=== PATIENT | male | born 1955 | race African-American/Black ===

== ENCOUNTER 2016-09-15 16:13 | Emergency (ER) | payer OTHER ==
--- NOTE | 2016-09-15 16:40 | ER Document Report ---
ED Respiratory Problem - General Chief Complaint: COPD Exacerbation Stated Complaint: DIFFICULTY BREATHING Time seen by provider: 16:40 Mode of Arrival: Medic Information source: Patient Notes: 60 yo smoker male with COPD has worsening SOB with ambulation, wheezing, can't get enough air for 3 days. Feels like constant squeezing,tight chest for over a week, coughing up phelgm that is white. [facility] a year go for COPD when gasping for air. No abd. pain, n/v/d. No fever. Heavy ETOH use 4 days ago. Ran out of symbicort 160 /4.5 1 weeks ago which he feels helps him the most and has been using 5 times a day he states his Ventolin metered-dose inhaler does not help. He does have a nebulizer at home. EMS has already given 2 albuterols and a DuoNeb with Solu-Medrol 125 mg IV prior to ER . pt has never had TB of CHF which I removed from the record. - Related Data Allergies/Adverse Reactions: iodine [Iodine] Allergy (Verified 03/25/14 17:30) Shellfish * [Shellfish] Allergy (Verified 03/25/14 17:30) Past Medical History - General Information source: Patient - Social History Smoking Status: Current Every Day Smoker Frequency of alcohol use: Heavy Drug Abuse: None Lives with: Family Family History: Reviewed & Not Pertinent Pulmonary Medical History: Reports: Hx COPD Psychiatric Medical History: Reports: Hx Depression Surgical Hx: Negative - Immunizations Hx Diphtheria, Pertussis, Tetanus Vaccination: Yes Hx Pneumococcal Vaccination: 03/12/12 Review of Systems - Review of Systems Constitutional: No symptoms reported EENT: No symptoms reported Cardiovascular: No symptoms reported Respiratory: See HPI Gastrointestinal: No symptoms reported Genitourinary: No symptoms reported Male Genitourinary: No symptoms reported Musculoskeletal: No symptoms reported Skin: No symptoms reported Hematologic/Lymphatic: No symptoms reported Neurological/Psychological: No symptoms reported Physical Exam - Vital signs Vitals: Pulse Ox 100 09/15/16 16:59 Interpretation: Tachypneic, Other - O2 99% on 2lpm nc which i removed - General General appearance: Appears well, Alert, Anxious In distress: None - HEENT Head: Normocephalic, Atraumatic Eyes: Normal Conjunctiva: Normal Pupils: PERRL Tympanic membrane: Normal Mouth/Lips: Normal Mucous membranes: Normal Pharynx: Normal Neck: Supple. No: Lymphadenopathy - Respiratory Respiratory status: No respiratory distress Chest status: Nontender Breath sounds: Decreased air movement, Wheezing - insp and exp using nexk muscle for work of respiration Chest palpation: Normal - Cardiovascular Rhythm: Regular Heart sounds: Normal auscultation Murmur: No - Abdominal Inspection: Normal Distension: No distension Bowel sounds: Normal Tenderness: Nontender. No: Tender Organomegaly: No organomegaly - Back Back: Normal, Nontender - Extremities General upper extremity: Normal inspection, Nontender, Normal color, Normal ROM , Normal temperature General lower extremity: Normal inspection, Nontender, Normal color, Normal ROM , Normal temperature, Normal weight bearing. No: Vicky's sign - Neurological Neuro grossly intact: Yes Cognition: Normal Orientation: AAOx4 [place] Coma Scale Eye Opening: Spontaneous [place] Coma Scale Verbal: Oriented [place] Coma Scale Motor: Obeys Commands [place] Coma Scale Total: 15 Speech: Normal Motor strength normal: LUE, RUE, LLE, RLE Sensory: Normal - Psychological Associated symptoms: Normal affect, Normal mood - Skin Skin Temperature: Warm Skin Moisture: Dry Skin Color: Normal Skin irregularity: negative: Rash Course - Re-evaluation Re-evalutation: 09/15/16 17:[address] mcarthur per [facility] guidelines. Add cardiac labs/ekg. 09/15/16 17:09 insp, exp wheeze kyree. persists after the 2 alb nebs on ems and duoneb here, solumedrol 125mg given on ems too. 09/15/16 17:52 His workup breathing is decreased and not using accessory muscles as much in his neck. He still has expiratory wheezing. He feels better. The magnesium is just getting started in the terbutaline was just recently given. No EKG has been done yet 09/15/16 18:01 Chest x-ray narrow heart flat diaphragms no infiltrate. EKG normal sinus rhythm with T-wave in version V4 and 5 which was not there 03/26/2014. 09/15/16 18:50 cardiac enzymes negative. ambulate on room air 98% to bathroom, moving air much better, mild exp wheeze bilateral. He states he can breath much much better. - Vital Signs Vital signs: Temp Pulse Resp BP Pulse Ox 19 116/68 99 09/15/16 18:01 09/15/16 18:01 09/15/16 18:01 - Laboratory Result Diagrams: 09/15/16 17:05 09/15/16 17:05 Laboratory results interpreted by me: 09/15/16 09/15/16 09/15/16 17:05 17:05 17:12 Eosinophils % 8.7 H ABG pO2 66.4 L ABG O2 Saturation 92.6 L Glucose 116 H ALT 15 L Discharge - Discharge Clinical Impression: Obstructive chronic bronchitis with exacerbation Condition: Good Disposition: HOME, SELF-CARE Instructions: Chronic Obstructive Lung Disease ([facility]), Corticosteroid Inhaler ( [facility], 1928–1983), Steroid Medication, Inhaled Bronchodilators ([facility], 1928–1983), Azithromycin (FORM[facility]LY [facility], 1928–1983), Stop Smoking (FORM[facility]LY [facility], 1928–1983) Additional Instructions: STOP SMOKING to er if worse use the albuterol 2.5 mg nebulizer four times per day as needed for cough and wheeze when at home take the prednisone daily until gone finish the azithromycin 250mg daily for 4 more days use the symbicort ONLY TWICE A DAY use the atrovent MDI four times per day only use the plain albuterol MDI every 3 hours as needed while not at home see the [place] doctor on sunday for recheck Prescriptions: Albuterol Sulfate [Ventolin 0.083% Neb 2.5 mg/3 mL Ampul] 2.5 mg NEB Q3HP PRN # 25 vial PRN Reason: Albuterol Sulfate [Proair HFA Inhalation Aerosol 8.5 gm MDI] 2 puff IH Q3HP PRN #1 hfa.aer.ad PRN Reason: Azithromycin [Zithromax] 250 mg PO DAILY #4 tablet Budesonide/Formoterol Fumarate [Symbicort Hfa 160-4.5 Mcg Inhaler 6 gm] 2 puff IH Q12 #1 inhaler Ipratropium [place] [Atrovent Hfa] 2 puff IH QID #1 hfa.aer.ad Prednisone [Deltasone 10 mg Tablet] 10 mg PO ASDIR PRN #21 tablet PRN Reason:
[2016-09-15] MEDS ORDERED: IPRATROPIUM/ALBUTEROL 0.5-2.5 MG/3 ML AMPUL NEB ONE (16:46)
[2016-09-15] MEDS ORDERED: ASPIRIN 81 MG TABLET, CHEWABLE PO ONE (17:06)
[2016-09-15] MEDS ORDERED: MAGNESIUM SULFATE/D5W 100 ML IV ONE (17:10)
[2016-09-15] MEDS ORDERED: TERBUTALINE SULFATE INJ/PF 1 MG/1 ML SDV SUBCUT ONE (17:14)
[2016-09-15 17:51] LABS: ARTERIAL BLOOD BASE EXCESS -1.6 mmol/L; ARTERIAL BLOOD O2 SATURATION 92.6 % (94-98)
[2016-09-15 17:52] LABS: ABSOLUTE EOSINOPHILS # (AUTO) 0.4 10^3/uL (0.0-0.6); ABSOLUTE LYMPHOCYTES (AUTO) 1.4 10^3/uL (0.5-4.7); ABSOLUTE MONOCYTES (AUTO) 0.4 10^3/uL (0.1-1.4); ABSOLUTE NEUT (AUTO) 2.8 10^3/uL (1.7-8.2); BASOPHILS % (AUTO) 0.6 % (0-2); EOSINOPHILS % (AUTO) 8.7 % (0-6); HEMATOCRIT 42.7 % (37.9-51.0); HGB HCT DIFFERENCE -0.7; LYMPHOCYTES % (AUTO) 28.1 % (13-45); MEAN CORPUSCULAR HEMOGLOBIN 31.1 pg (27.0-33.4); MEAN CORPUSCULAR HGB CONC 32.8 g/dL (32.0-36.0); MEAN CORPUSCULAR VOLUME 95 fl (80-97); MONOCYTES % (AUTO) 7.5 % (3-13); RED BLOOD COUNT 4.51 10^6/uL (4.35-5.55); RED CELL DISTRIBUTION WIDTH 13.7 % (11.5-14.0); SEGMENTED NEUTROPHILS % (AUTO) 55.1 % (42-78)
[2016-09-15 18:04] LABS: ALANINE AMINOTRANSFERASE 15 U/L (21-72); ALBUMIN 3.7 g/dL (3.5-5.0); ALKALINE PHOSPHATASE 55 U/L (38-126); ANION GAP 9 (5-19); ASPARTATE AMINO TRANSFERASE 18 U/L (17-59); BILIRUBIN,TOTAL 0.5 mg/dL (0.2-1.3); BLOOD UREA NITROGEN 16 mg/dL (7-20); CALCIUM 9.1 mg/dL (8.4-10.2); CARBON DIOXIDE 28 mmol/L (22-30); CHLORIDE 100 mmol/L (98-107); CREATINE KINASE 150 U/L (55-170); CREATININE RESULT 1.15 mg/dL (0.52-1.25); GLUCOSE 116 mg/dL (75-110); POTASSIUM 4.4 mmol/L (3.6-5.0); SODIUM 137.3 mmol/L (137-145); TOTAL PROTEIN 6.8 g/dL (6.3-8.2)
[2016-09-15 18:19] LABS: TROPONIN I < 0.012 ng/mL
[2016-09-15] MEDS ORDERED: AZITHROMYCIN 250 MG TABLET PO ONE (19:03)
[2016-09-15] MEDS ORDERED: PREDNISONE 20 MG TABLET PO ONE (19:17)
[2016-09-15 19:54] VITALS: BP 119/77
--- NOTE | 2016-09-15 20:58 | EKG REPORT ---
SEVERITY:- BORDERLINE ECG - SINUS RHYTHM PROBABLE LEFT ATRIAL ABNORMALITY LOW VOLTAGE IN FRONTAL LEADS BORDERLINE T ABNORMALITIES, LATERAL LEADS : Confirmed by: Sabas Flores MD 15-Sep-2016 20:56:54
== END 2016-09-15 19:35 | disposition home or self-care (01) ==
LOC: ER 16:13
DX: J44.1 Chronic obstructive pulmonary disease with (acute) exacerbation (principal); R06.02 Shortness of breath; R06.2 Wheezing; R05 Cough; F17.210 Nicotine dependence, cigarettes, uncomplicated
CPT/HCPCS: 93005; 94640; 99285; 96372; 96365; 36415; 82553; 82803; 82550; 85025; 80053; 84484; 71010; 93010; J3475; J7512; J3105; J7620

== ENCOUNTER 2016-09-18 03:25 | Inpatient (IN) | payer OTHER ==
[2016-09-18] MEDS ORDERED: METHYLPREDNISOLONE INJ 125 MG/2 ML SDV IV ONE (03:39)
[2016-09-18] MEDS ORDERED: IPRATROPIUM/ALBUTEROL 0.5-2.5 MG/3 ML AMPUL NEB ONE (03:39)
[2016-09-18 03:57] LABS: ABSOLUTE EOSINOPHILS # (AUTO) 0.7 10^3/uL (0.0-0.6); ABSOLUTE LYMPHOCYTES (AUTO) 2.5 10^3/uL (0.5-4.7); ABSOLUTE MONOCYTES (AUTO) 0.6 10^3/uL (0.1-1.4); ABSOLUTE NEUT (AUTO) 2.1 10^3/uL (1.7-8.2); BASOPHILS % (AUTO) 0.7 % (0-2); EOSINOPHILS % (AUTO) 11.9 % (0-6); HEMATOCRIT 41.9 % (37.9-51.0); HEMOGLOBIN 13.9 g/dL (13.5-17.0); HGB HCT DIFFERENCE -0.2; LYMPHOCYTES % (AUTO) 41.6 % (13-45); MEAN CORPUSCULAR HEMOGLOBIN 31.6 pg (27.0-33.4); MEAN CORPUSCULAR HGB CONC 33.2 g/dL (32.0-36.0); MEAN CORPUSCULAR VOLUME 95 fl (80-97); MONOCYTES % (AUTO) 10.7 % (3-13); RED BLOOD COUNT 4.41 10^6/uL (4.35-5.55); RED CELL DISTRIBUTION WIDTH 13.4 % (11.5-14.0); SEGMENTED NEUTROPHILS % (AUTO) 35.1 % (42-78)
[2016-09-18] MEDS: MAGNESIUM SULFATE/D5W 100 ML IV SCH ×2 (04:01→05:00)
[2016-09-18 04:02] LABS: ALANINE AMINOTRANSFERASE 25 U/L (21-72); ALKALINE PHOSPHATASE 53 U/L (38-126); ANION GAP 15 (5-19); ASPARTATE AMINO TRANSFERASE 16 U/L (17-59); BILIRUBIN,TOTAL 0.4 mg/dL (0.2-1.3); BLOOD UREA NITROGEN 16 mg/dL (7-20); CALCIUM 8.3 mg/dL (8.4-10.2); CARBON DIOXIDE 28 mmol/L (22-30); CHLORIDE 103 mmol/L (98-107); GLUCOSE 83 mg/dL (75-110); POTASSIUM 3.7 mmol/L (3.6-5.0); SODIUM 146.3 mmol/L (137-145); TOTAL PROTEIN 6.2 g/dL (6.3-8.2)
--- NOTE | 2016-09-18 04:20 | ER Document Report ---
ED General - General Chief Complaint: Breathing Difficulty Stated Complaint: DIFFICULTY BREATHING Notes: Patient is a [id number] male presents with complaint of difficulty breathing. If seen here 3 days ago for some of symptoms was discharged home with multiple inhalers but says he was unable to fill prescriptions because the [place] pharmacy was not open over the weekend. He continues to smoke. Breathing has become much worse. No vomiting. No diarrhea. Fevers. No chest pain. No other complaints at this time. TRAVEL OUTSIDE OF THE [place] IN LAST 30 DAYS: No - Related Data Allergies/Adverse Reactions: iodine [Iodine] Allergy (Verified 09/18/16 04:50) Shellfish * [Shellfish] Allergy (Verified 09/18/16 04:50) Past Medical History - Social History Smoking Status: Current Every Day Smoker Frequency of alcohol use: None Drug Abuse: None Family History: Reviewed & Not Pertinent - Past Medical History Cardiac Medical History: Reports: Hx Congestive Heart Failure Pulmonary Medical History: Reports: Hx COPD, Hx Tuberculosis - Treatment in 1991 Denies: Hx Respiratory Failure, Hx Sleep Apnea Renal/ Medical History: Denies: Hx Peritoneal Dialysis Malignancy Medical History: Denies Hx Lung Cancer Psychiatric Medical History: Reports: Hx Depression Past Surgical History: Denies: Hx Appendectomy, Hx Bowel Surgery, Hx Cholecystectomy, Hx Coronary Artery Bypass Graft, Hx Gastric Bypass Surgery, Hx Herniorrhaphy, Hx Pacemaker, Hx Tonsillectomy - Immunizations Hx Diphtheria, Pertussis, Tetanus Vaccination: Yes Hx Pneumococcal Vaccination: 03/12/12 Review of Systems - Review of Systems Notes: My Normal Review Basic REVIEW OF SYSTEMS: CONSTITUTIONAL : Denies fever, chills, or sweats. Denies recent illness. EENT: Some congestion. RESPIRATORY: Difficulty breathing. Recurrent cough. Wheezing. GASTROINTESTINAL: Denies abdominal pain. Denies nausea, vomiting, or diarrhea. Denies constipation. Last BM: MUSCULOSKELETAL: Denies neck or back pain or joint pain or swelling. SKIN: Denies rash or skin lesions. NEUROLOGICAL: Denies altered mental status or loss of consciousness. Denies headache. Denies weakness or paralysis or loss of use of either side. Denies problems with gait or speech. Denies sensory or motor loss. ALL OTHER SYSTEMS REVIEWED AND NEGATIVE. Physical Exam - Vital signs Vitals: BP 133/112 H 09/18/16 03:28 - Notes Notes: General Appearance: Well nourished, alert, cooperative, moderate acute distress , no obvious discomfort. Vitals: reviewed, See vital signs table. Head: no swelling or tenderness to the head Eyes: PERRL, EOMI, Conjuctiva clear Mouth: No decreasd moisture Throat: No tonsillar inflammation, No airway obstruction, No lymphadenopathy Neck: Supple, no neck tenderness, No thyromegaly Lungs: Diffuse wheezing. Diffuse rhonchi. Fair air exchange. Heart: Tachycardic rate, Regular rythm, No murmur, no rub Abdomen: Normal BS, soft, No rigidity, No abdominal tenderness, No guarding, no rebound, no abdominal masses, no organomegaly Extremities: strength 5/5 in all extremities, good pulses in all extremities, no swelling or tenderness in the extremities, no edema. Skin: warm, dry, appropriate color, no rash Neuro: speech clear, oriented x 3, normal affect, responds appropriately to questions. Course - Vital Signs Vital signs: Temp Pulse Resp BP Pulse Ox 98.0 F 19 126/95 H 98 09/18/16 03:30 09/18/16 04:01 09/18/16 04:01 09/18/16 04:01 - Laboratory Result Diagrams: 09/18/16 03:30 09/18/16 03:30 Laboratory results interpreted by me: 09/18/16 09/18/16 03:30 03:30 Seg Neutrophils % 35.1 L Eosinophils % 11.9 H Absolute Eosinophils 0.7 H Sodium 146.3 H Calcium 8.3 L AST 16 L Total Protein 6.2 L - EKG Interpretation by Me Additional EKG results interpreted by me: 09/18/16 04:32 EKG is reviewed and interpreted by me. EKG shows sinus tachycardia with [address] segment elevation or depression. No ischemic T wave inversions. IA interval, QRS duration, QTC was are within normal range. No old EKG available for comparison. - Transfer of Care Notes: 09/18/16 04:59 Patient's tachypnea has improved. His increased work of breathing is improved; however, he still is very tight lung mohan with large amount of rhonchi and wheezing. He still requiring 3 L of oxygen. At this time and felt appropriate to admit the patient. Patient's had multiple breathing treatments as well as magnesium and Solu-Medrol. Chest x-ray shows no evidence of pneumonia. I did speak with the hospitalist who agrees to admit the patient. Dictation of this chart was performed using voice recognition software; therefore, there may be some unintended grammatical errors. Discharge - Discharge Clinical Impression: Obstructive chronic bronchitis with exacerbation Condition: Stable Disposition: ADMITTED OBSERVATION Admitting Provider: Hospitalist Unit Admitted: Telemetry
[2016-09-18 04:59] LABS: VENOUS BLOOD BASE EXCESS -7.3 mmol/L; VENOUS BLOOD HCO3 18.9 mmol/L (20-32); VENOUS BLOOD PCO2 40.9 mmHg (35-63); VENOUS BLOOD PH 7.28 (7.30-7.42)
[2016-09-18] MEDS ORDERED: ACETAMINOPHEN 325 MG TABLET PO PRN (04:59)
[2016-09-18] MEDS ORDERED: IPRATROPIUM/ALBUTEROL 0.5-2.5 MG/3 ML AMPUL NEB PRN (04:59)
[2016-09-18] MEDS ORDERED: HEPARIN SOD (PORCINE) 5,000 UNIT/ML 1 ML SYRINGE SUBCUT SCH (06:00)
--- NOTE | 2016-09-18 06:30 | PDOC H&P ---
History of Present Illness Admission Date/PCP: 09/18/16 04:59 Patient complains of: Shortness of breath a nonproductive cough History of Present Illness: JOSE FERNANDO is a 60 year old male with a history of COPD and tobacco dependence he's had approximately 5 days of a nonproductive cough and worsening shortness of breath prompting him to seek evaluation emergency room where his found to have severe tachypnea and large AA gradient setting only 93% on 4 L nasal cannula. He denies chest pain fever nausea vomiting diaphoresis or palpitations. Denies infectious contacts, he is unclear as to whether he is received Pneumovax or influenza vaccine. Patient otherwise states compliance with his home medication regiment but continues to smoke 1 pack per day. Past Medical History Cardiac Medical History: Reports: Congestive Heart Failure Pulmonary Medical History: Reports: Chronic Obstructive Pulmonary Disease (COPD) , Tuberculosis - Treatment in 1991 Denies: Respiratory Failure, Sleep Apnea Malignancy Medical History: Denies: Breast Cancer, Cervical Cancer, Lung Cancer, Ovarian Cancer Psychiatric Medical History: Reports: Depression, Tobacco Dependency Past Surgical History Past Surgical History: Denies: Appendectomy, Cholecystectomy, Coronary Artery Bypass Graft, Gastric Bypass Surgery, Herniorrhaphy, Pacemaker, Tonsillectomy Social History Information Source: Patient Lives with: Family Smoking Status: Current Every Day Smoker Cigarettes Packs Per Day: 1 Frequency of Alcohol Use: None Hx Recreational Drug Use: Yes Drugs: Cocaine Hx Prescription Drug Abuse: No Family History Family History: CAD, COPD Parental Family History Reviewed: Yes Children Family History Reviewed: Yes Sibling(s) Family History Reviewed.: Yes Medication/Allergy Home Medications: Trazodone HCl [Desyrel 50 mg Tablet] 50 mg PO QHS 03/25/14 Albuterol Sulfate [Proair HFA Inhalation Aerosol 8.5 gm MDI] 1 puff IH ASDIR PRN #1 hfa.aer.ad 03/27/14 Amlodipine Besylate [Norvasc 5 mg Tablet] 5 mg PO DAILY #30 tablet 03/27/14 Amox Tr/Potassium Clavulanate [Augmentin 875-125 mg Tablet] 1 tab PO BID #20 tablet 03/27/14 Budesonide/Formoterol Fumarate [Symbicort HFA 160-4.5 mcg Inhaler 6 gm] 2 puff IH BID #1 inhaler 03/27/14 Docusate Sodium [Colace 100 mg Capsule] 100 mg PO BID #60 capsule 03/27/14 Famotidine [Pepcid 20 mg Tablet] 20 mg PO Q12 #60 tablet 03/27/14 Fluconazole [Diflucan 100 Mg Tablet] 200 mg PO DAILY #42 tablet 03/27/14 Prednisone 60 mg PO DAILY #21 tablet 03/27/14 Albuterol Sulfate [Proair HFA Inhalation Aerosol 8.5 gm MDI] 2 puff IH Q3HP PRN #1 hfa.aer.ad 09/15/16 Albuterol Sulfate [Ventolin 0.083% Neb 2.5 mg/3 mL Ampul] 2.5 mg NEB Q3HP PRN # 25 vial 09/15/16 Azithromycin [Zithromax] 250 mg PO DAILY #4 tablet 09/15/16 Budesonide/Formoterol Fumarate [Symbicort Hfa 160-4.5 Mcg Inhaler 6 gm] 2 puff IH Q12 #1 inhaler 09/15/16 Ipratropium [place] [Atrovent Hfa] 2 puff IH QID #1 hfa.aer.ad 09/15/16 Prednisone [Deltasone 10 mg Tablet] 10 mg PO ASDIR PRN #21 tablet 09/15/16 Allergies/Adverse Reactions: iodine [Iodine] Allergy (Verified 09/18/16 04:50) Shellfish * [Shellfish] Allergy (Verified 09/18/16 04:50) Review of Systems Constitutional: ABSENT: chills, fever(s), headache(s), weight gain, weight loss Eyes: ABSENT: visual disturbances Ears: ABSENT: hearing changes Cardiovascular: ABSENT: chest pain, dyspnea on exertion, edema, orthropnea, palpitations Respiratory: ABSENT: cough, hemoptysis Gastrointestinal: ABSENT: abdominal pain, constipation, diarrhea, hematemesis, hematochezia, nausea, vomiting Genitourinary: ABSENT: dysuria, hematuria Musculoskeletal: ABSENT: joint swelling Integumentary: ABSENT: rash, wounds Neurological: ABSENT: abnormal gait, abnormal speech, confusion, dizziness, focal weakness, syncope Psychiatric: ABSENT: anxiety, depression, homidical ideation, suicidal ideation Endocrine: ABSENT: cold intolerance, heat intolerance, polydipsia, polyuria Hematologic/Lymphatic: ABSENT: easy bleeding, easy bruising Physical Exam Vital Signs: Temp Pulse Resp BP Pulse Ox 98.0 F 14 138/87 H 97 09/18/16 03:30 09/18/16 05:06 09/18/16 05:06 09/18/16 05:06 Intake & Output 09/16/16 09/17/16 09/18/16 11:59 11:59 11:59 Weight 72.575 kg General appearance: PRESENT: cooperative, mild distress, thin Head exam: PRESENT: atraumatic, normocephalic Eye exam: PRESENT: conjunctiva pink, EOMI, PERRLA. ABSENT: scleral icterus Ear exam: PRESENT: normal external ear exam Mouth exam: PRESENT: moist, tongue midline Neck exam: ABSENT: carotid bruit, JVD, lymphadenopathy, thyromegaly Respiratory exam: PRESENT: accessory muscle use, crackles, prolonged expiratory phas, tachypnea, wheezes. ABSENT: rhonchi, stridor Cardiovascular exam: PRESENT: RRR. ABSENT: diastolic murmur, rubs, systolic murmur Pulses: PRESENT: normal dorsalis pedis pul Vascular exam: PRESENT: normal capillary refill GI/Abdominal exam: PRESENT: normal bowel sounds, soft. ABSENT: distended, guarding, mass, organolmegaly, rebound, tenderness Rectal exam: PRESENT: deferred Extremities exam: PRESENT: full ROM. ABSENT: calf tenderness, clubbing, pedal edema Neurological exam: PRESENT: alert, awake, oriented to person, oriented to place , oriented to time, oriented to situation, CN II-XII grossly intact. ABSENT: motor sensory deficit Psychiatric exam: PRESENT: appropriate affect, normal mood. ABSENT: homicidal ideation, suicidal ideation Skin exam: PRESENT: dry, intact, warm. ABSENT: cyanosis, rash Results Impressions: Chest X-Ray 09/18/16 03:39 IMPRESSION: No acute cardiopulmonary findings. Stable. Assessment & Plan - Diagnosis (1) COPD exacerbation Is this a current diagnosis for this admission?: YesPlan: Patient be admitted to the telemetry floor with pneumonia care set receiving albuterol Atrovent, Solu-Medrol, empiric antibiotics, I'm concerned for the patient's lifelong smoking and BMI of only [address] chest (2) Pneumonia Plan: Compcare by advanced COPD and chronic bronchitis clinically he has early pneumonia he will be treated with empiric antibiotics in addition to the above following up blood culture, and CT right sided fullness of the hilum. (3) Tobacco abuse Is this a current diagnosis for this admission?: YesPlan: Tobacco Dependence patient received tobacco cessation counseling and offered nicotine replacement options - Time Time Spent: 50 to 70 Minutes
[2016-09-18] MEDS: IPRATROPIUM/ALBUTEROL 0.5-2.5 MG/3 ML AMPUL NEB SCH ×3 (08:05→20:27)
[2016-09-18] MEDS: LEVOFLOXACIN 750 MG/D5W RTU 750 MG/150 ML RTUPB IV SCH (08:32)
--- NOTE | 2016-09-18 09:18 | Physician Advisory Note ---
Physician Advisor ProgressNote .: [facility], I have reviewed the medical record for this patient. Physician Advisor Statement: Very nice description of pt's acute resp failure findings in H&P. Possible documentation opportunities if attending agrees: 1. "Acute Hypoxemic Respiratory Failure with resp distress & accessory muscle use, tachypnea, & O2 sat 93% on 4L O2" 2. "possible early PNA, suspect gram-negative given COPD & ..., possibly involving Rt/Lt ___ lobe(s)" - perhaps not showing up due to volume depletion at time of arrival - or do you suspect "Acute Bronchitis" instead? 3. "chronic CHF, suspect ___ type" [syst/diast?] 4. "mild hypernatremia, likely due to decreased intravascular fluid volume related to respiratory distress" [or ....?] 5. "suspect possible lung CA, as well as malnutrition, given pt's tobacco hx & low BMI" [reason for CT] 6. "past cocaine use" As always, if concerned about any unstable VS or abnormal labs, please comment on them & note what doing about them, & please document each day the potential clinical problems you are concerned could occur if pt not kept in hospital for tx at this time. Discussion: 60yo male w/ chronic co-morbidities including chronic __type CHF, COPD w/ ongoing tobacco dependence, past TB (tx'd), past cocaine use - presented very early 09/18 AM to ED w/5 days of worsening SOB w/nonproductive cough. Seen 3days before for this, but unable to fill [facility]. (+) HR 113, RR21. Na 146.3, WBC 6.0. ED nurse at 03:45: "resp.s labored, SOB" , "skin cool & clammy, appears distressed". ED dr documented pt "mod acute distress", & after multiple neb tx's, Mag, Solumedrol pt's tachypnea & increased work of breathing improved but still "very tight lung mohan w/large amt of rhonchi & wheezing", & still requiring 3L O2. Attending ordered Status: COPD exac.s are typically Outpt Obs initially until they prove failure to sufficiently improve after 1MN of hospital care. However, this pt has underlying lung dz from COPD, past TB, & has chronic CHF as well, which work against a quick turn-around in sx. His sx needed tx 3 days prior & without tx have greatly worsened. He has Ac Resp Failure with significant O2 needs & continued accessory muscle use & distress per attending H &P even after aggressive ED tx. It sounds extremely unlikely that he will improve sufficiently after just a day of care to be able to go home safely. Tx in inpatient hospital setting medically reasonable & necessary to protect pt's health, safety, & medical condition. Appropriate for Inpt status. Thanks for your help with documentation accuracy/specificity improvement! Flor Comer MD [facility] Physician Advisor, Fellow of Hospital Medicine
[2016-09-18] MEDS ORDERED: FLUCONAZOLE 100 MG TABLET PO SCH (10:00)
[2016-09-18] MEDS: METHYLPREDNISOLONE INJ 125 MG/2 ML SDV IV SCH ×2 (10:05→20:20)
[2016-09-18] MEDS: TIOTROPIUM BROMIDE DPI 5 CAP/KIT (18 MCG/CAP) IH SCH (10:06)
[2016-09-18] MEDS: DOCUSATE SODIUM 100 MG CAPSULE PO SCH ×2 (10:08→20:20)
[2016-09-18] MEDS: AMLODIPINE BESYLATE 5 MG TABLET PO SCH (10:08)
[2016-09-18] MEDS: FAMOTIDINE 20 MG TABLET PO SCH ×2 (10:08→21:18)
[2016-09-18] MEDS: NICOTINE 14 MG/24 HR PATCH.TD24 TD SCH (10:09)
[2016-09-18] MEDS: HEPARIN SOD (PORCINE) 5,000 UNIT/ML 1 ML SYRINGE SUBCUT SCH ×2 (10:11→20:19)
--- NOTE | 2016-09-18 15:50 | EKG REPORT ---
SEVERITY:- ABNORMAL ECG - SINUS TACHYCARDIA BIATRIAL ABNORMALITIES LOW VOLTAGE IN FRONTAL LEADS PROBABLE LEFT VENTRICULAR HYPERTROPHY : Confirmed by: Anna Guardado 18-Sep-2016 15:49:49
--- NOTE | 2016-09-18 16:08 | PDOC PROGRESS REPORT ---
Subjective Progress Note for:: 09/18/16 Subjective:: Patient is seen on morning rounds. He is resting in bed. He states his breathing is feeling much easier. Wheezing has mostly resolved. He denies any chest pain or dizziness. He denies any headache. He denies any nausea, vomiting or abdominal pain. He denies any other complaints at the present time. Physical Exam Vital Signs: Temp Pulse Resp BP Pulse Ox 97.6 F 79 13 129/89 H 97 09/18/16 13:17 09/18/16 13:52 09/18/16 15:01 09/18/16 15:01 09/18/16 15:01 Intake & Output 09/17/16 09/18/16 09/19/16 06:59 06:59 06:59 Output Total 300 Balance -300 General appearance: PRESENT: no acute distress, thin, well-developed, well- nourished Head exam: PRESENT: atraumatic, normocephalic Eye exam: PRESENT: conjunctiva pink, EOMI, PERRLA. ABSENT: scleral icterus Ear exam: PRESENT: normal external ear exam Mouth exam: PRESENT: dry mucosa Neck exam: ABSENT: carotid bruit, JVD, lymphadenopathy, thyromegaly Respiratory exam: PRESENT: decreased breath sounds - mild, prolonged expiratory phas - mild scattered expiratory wheezing, symmetrical, unlabored, wheezes Cardiovascular exam: PRESENT: bradycardia Pulses: PRESENT: normal dorsalis pedis pul Vascular exam: PRESENT: normal capillary refill GI/Abdominal exam: PRESENT: normal bowel sounds, soft. ABSENT: distended, guarding, mass, organolmegaly, rebound, tenderness Rectal exam: PRESENT: deferred Extremities exam: PRESENT: full ROM. ABSENT: calf tenderness, clubbing, pedal edema Neurological exam: PRESENT: alert, awake, oriented to person, oriented to place , oriented to time, oriented to situation, CN II-XII grossly intact. ABSENT: motor sensory deficit Psychiatric exam: PRESENT: appropriate affect, normal mood. ABSENT: homicidal ideation, suicidal ideation Skin exam: PRESENT: dry, intact, warm. ABSENT: cyanosis, rash Results Impressions: Chest CT 09/18/16 00:00 IMPRESSION: Obstructive lung disease. No worrisome lung nodules. Chest X-Ray 09/18/16 03:39 IMPRESSION: No acute cardiopulmonary findings. Stable. Assessment & Plan - Diagnosis (1) Acute hypoxemic respiratory failure Is this a current diagnosis for this admission?: YesPlan: Most likely due to acute bronchitis. CXR and CT chest show no pneumonia. Patient was hypoxemic on room air, tachypneic and using accessory muscles to breath. Patient now with oxygen saturations of 93-98% on 4l/min nasal cannula (2) COPD exacerbation Is this a current diagnosis for this admission?: YesPlan: Continue steroids, broad spectrum antibiotics, nebulizer and oxygen. (3) Tobacco abuse Is this a current diagnosis for this admission?: YesPlan: Counseled on tobacco cessation . (4) Hypernatremia Is this a current diagnosis for this admission?: YesPlan: Most likely secondary to mild intravascular volume depletion from poor intake due to illness. Will monitor (5) Protein-calorie malnutrition, mild Is this a current diagnosis for this admission?: YesPlan: Patient reports poor appetited for the last 2 weeks since being sick. CT of the chest shows no pneumonia or lung mass. He states he has always been thin but generally has a good appetite. Will liberalize diet - Time Time Spent with patient: 25-34 minutes Critical Time spent with patient: 15-24 minutes Smoking Cessation Education: 3 to 10 minutes Medications reviewed and adjusted accordingly: Yes Anticipated discharge: Home
[2016-09-18] MEDS ORDERED: DOXAZOSIN MESYLATE 4 MG TABLET PO ONE (22:00)
[2016-09-19] MEDS: METHYLPREDNISOLONE INJ 125 MG/2 ML SDV IV SCH ×2 (02:00→10:06)
[2016-09-19] MEDS: IPRATROPIUM/ALBUTEROL 0.5-2.5 MG/3 ML AMPUL NEB SCH ×2 (02:28→08:14)
[2016-09-19 05:17] LABS: ABSOLUTE LYMPHOCYTES (AUTO) 0.6 10^3/uL (0.5-4.7); ABSOLUTE MONOCYTES (AUTO) 0.2 10^3/uL (0.1-1.4); ABSOLUTE NEUT (AUTO) 6.5 10^3/uL (1.7-8.2); BASOPHILS % (AUTO) 0.3 % (0-2); HEMATOCRIT 40.7 % (37.9-51.0); HEMOGLOBIN 13.5 g/dL (13.5-17.0); HGB HCT DIFFERENCE -0.2; LYMPHOCYTES % (AUTO) 8.1 % (13-45); MEAN CORPUSCULAR HEMOGLOBIN 31.4 pg (27.0-33.4); MEAN CORPUSCULAR HGB CONC 33.2 g/dL (32.0-36.0); MEAN CORPUSCULAR VOLUME 94 fl (80-97); MONOCYTES % (AUTO) 2.3 % (3-13); RED BLOOD COUNT 4.32 10^6/uL (4.35-5.55); RED CELL DISTRIBUTION WIDTH 13.5 % (11.5-14.0); SEGMENTED NEUTROPHILS % (AUTO) 89.3 % (42-78); WHITE BLOOD COUNT 7.2 10^3/uL (4.0-10.5)
[2016-09-19 05:40] LABS: ANION GAP 12 (5-19); BLOOD UREA NITROGEN 18 mg/dL (7-20); CARBON DIOXIDE 25 mmol/L (22-30); CHLORIDE 100 mmol/L (98-107); CREATININE RESULT 0.97 mg/dL (0.52-1.25); GLUCOSE 144 mg/dL (75-110); POTASSIUM 4.3 mmol/L (3.6-5.0); SODIUM 136.6 mmol/L (137-145)
[2016-09-19] MEDS: HEPARIN SOD (PORCINE) 5,000 UNIT/ML 1 ML SYRINGE SUBCUT SCH ×3 (06:34→21:47)
[2016-09-19] MEDS ORDERED: TAMSULOSIN HCL 0.4 MG CAP.SR.24H PO ONE (09:45)
[2016-09-19] MEDS: LEVOFLOXACIN 750 MG/D5W RTU 750 MG/150 ML RTUPB IV SCH (10:05)
[2016-09-19] MEDS: FAMOTIDINE 20 MG TABLET PO SCH ×2 (10:05→21:47)
[2016-09-19] MEDS: AMLODIPINE BESYLATE 5 MG TABLET PO SCH (10:05)
[2016-09-19] MEDS ORDERED: ALBUTEROL SULFATE 0.042% NEB (1.25 MG/3 ML) AMPUL NEB PRN (10:05)
[2016-09-19] MEDS: DOCUSATE SODIUM 100 MG CAPSULE PO SCH ×2 (10:05→17:42)
[2016-09-19] MEDS: NICOTINE 14 MG/24 HR PATCH.TD24 TD SCH (10:06)
[2016-09-19] MEDS: DOXAZOSIN MESYLATE 4 MG TABLET PO SCH ×2 (10:22→17:42)
[2016-09-19] MEDS: TIOTROPIUM BROMIDE DPI 5 CAP/KIT (18 MCG/CAP) IH SCH (10:22)
[2016-09-19] MEDS ORDERED: BUDESONIDE/FORMOTEROL 160-4.5 MCG 60 PUFF/6 GM MDI IH ONE (11:30)
[2016-09-19] MEDS: ALBUTEROL SULFATE 0.083% NEB 2.5 MG/3 ML AMPUL NEB SCH ×2 (13:41→19:45)
--- NOTE | 2016-09-19 14:32 | PDOC PROGRESS REPORT ---
Subjective Progress Note for:: 09/19/16 Subjective:: The patient was seen earlier today on rounds. Shortness of breath overall has improved. The patient admits to a strong cough and is only produce one episode of sputum. The patient denies any nausea, vomiting, diarrhea,, dizziness, chest pain, heart palpitations, fevers, or chills. The patient has remained afebrile. Blood pressures have been in a good range. The patient admits to urinary hesitancy. When prompted the patient voices no other concerns at this time. Review of systems: The rest of the review of systems is negative. Physical Exam Vital Signs: Temp Pulse Resp BP Pulse Ox 98.3 F 100 16 127/84 H 90 L 09/19/16 11:37 09/19/16 13:40 09/19/16 13:40 09/19/16 11:37 09/19/16 13:40 Intake & Output 09/17/16 09/18/16 09/19/16 23:59 23:59 23:59 Intake Total 5 Output Total 300 950 Balance -300 -945 Weight 65.9 kg General appearance: PRESENT: no acute distress, cooperative, well-developed, well-nourished Head exam: PRESENT: atraumatic, normocephalic Eye exam: PRESENT: conjunctiva pink, EOMI, PERRLA. ABSENT: scleral icterus Ear exam: PRESENT: normal external ear exam Mouth exam: PRESENT: moist, tongue midline Neck exam: ABSENT: carotid bruit, JVD, lymphadenopathy, thyromegaly Respiratory exam: PRESENT: symmetrical, unlabored, wheezes. ABSENT: rales, rhonchi, tachypnea Cardiovascular exam: PRESENT: RRR. ABSENT: diastolic murmur, rubs, systolic murmur Pulses: PRESENT: normal dorsalis pedis pul Vascular exam: PRESENT: normal capillary refill GI/Abdominal exam: PRESENT: normal bowel sounds, soft. ABSENT: distended, guarding, mass, organolmegaly, rebound, tenderness Rectal exam: PRESENT: deferred Extremities exam: PRESENT: full ROM. ABSENT: calf tenderness, clubbing, pedal edema Neurological exam: PRESENT: alert, awake, oriented to person, oriented to place , oriented to time, oriented to situation, CN II-XII grossly intact. ABSENT: motor sensory deficit Psychiatric exam: PRESENT: appropriate affect, normal mood. ABSENT: homicidal ideation, suicidal ideation Skin exam: PRESENT: dry, intact, warm. ABSENT: cyanosis, rash Results Laboratory Results: 09/19/16 04:31 09/19/16 04:31 09/19/16 09/19/16 09/19/16 04:31 04:31 04:31 WBC 7.2 RBC 4.32 L Hgb 13.5 Hct 40.7 MCV 94 MCH 31.4 MCHC 33.2 RDW 13.5 Plt Count 220 Seg Neutrophils % 89.3 H Lymphocytes % 8.1 L Monocytes % 2.3 L Eosinophils % 0.0 Basophils % 0.3 Absolute Neutrophils 6.5 Absolute Lymphocytes 0.6 Absolute Monocytes 0.2 Absolute Eosinophils 0.0 Absolute Basophils 0.0 Sodium 136.6 L Potassium 4.3 Chloride 100 Carbon Dioxide 25 Anion Gap 12 BUN 18 Creatinine 0.97 Est GFR ( Amer) > 60 Est GFR (Non-Af Amer) > 60 Glucose 144 H Calcium 10.0 Magnesium 1.9 Impressions: Chest CT 09/18/16 00:00 IMPRESSION: Obstructive lung disease. No worrisome lung nodules. Chest X-Ray 09/18/16 03:39 IMPRESSION: No acute cardiopulmonary findings. Stable. Assessment & Plan - Diagnosis (1) COPD with exacerbation Is this a current diagnosis for this admission?: YesPlan: Will continue home medications. (2) Acute hypoxemic respiratory failure Is this a current diagnosis for this admission?: YesPlan: Will titrate O2 and steroids. (3) Hypernatremia Is this a current diagnosis for this admission?: YesPlan: Most likely secondary to mild intravascular volume depletion from poor intake due to illness. Resolved. (4) Protein-calorie malnutrition, mild Is this a current diagnosis for this admission?: YesPlan: Patient reports poor appetited for the last 2 weeks since being sick. CT of the chest shows no pneumonia or lung mass. He states he has always been thin but generally has a good appetite. Continue a liberalize diet (5) Tobacco abuse Is this a current diagnosis for this admission?: Yes - Time Time Spent with patient: on this visit including assessment, plan, physical examination, and patient education is 25 minutes. Time Spent with patient: 25-34 minutes Medications reviewed and adjusted accordingly: Yes Anticipated discharge: Home Within: within 24 hours Disposition: The patient is a full code. Pending patient's symptomatology and diagnostic findings will reevaluate in the a.m.
[2016-09-19] MEDS: PREDNISONE 20 MG TABLET PO SCH (17:42)
[2016-09-19] MEDS: BUDESONIDE/FORMOTEROL 160-4.5 MCG 60 PUFF/6 GM MDI IH SCH (17:43)
[2016-09-20] MEDS: ALBUTEROL SULFATE 0.083% NEB 2.5 MG/3 ML AMPUL NEB SCH (03:32)
[2016-09-20] MEDS: HEPARIN SOD (PORCINE) 5,000 UNIT/ML 1 ML SYRINGE SUBCUT SCH (05:24)
[2016-09-20 08:41] VITALS: BP 121/74
[2016-09-20] MEDS ORDERED: LEVOFLOXACIN 750 MG TABLET PO SCH (10:00)
[2016-09-20] MEDS: AMLODIPINE BESYLATE 5 MG TABLET PO SCH (10:27)
[2016-09-20] MEDS: DOCUSATE SODIUM 100 MG CAPSULE PO SCH (10:28)
[2016-09-20] MEDS: BUDESONIDE/FORMOTEROL 160-4.5 MCG 60 PUFF/6 GM MDI IH SCH (10:28)
[2016-09-20] MEDS: DOXAZOSIN MESYLATE 4 MG TABLET PO SCH (10:29)
[2016-09-20] MEDS: PREDNISONE 20 MG TABLET PO SCH (10:30)
[2016-09-20] MEDS: FAMOTIDINE 20 MG TABLET PO SCH (10:30)
[2016-09-20] MEDS: NICOTINE 14 MG/24 HR PATCH.TD24 TD SCH (10:31)
--- NOTE | 2016-09-21 17:18 | PDOC DISCHARGE SUMMARY ---
General - Admit/Disc Date/PCP Admission Date/Primary Care Provider: 09/18/16 10:29 Dr. Holt at the [facility] Discharge Date: 09/20/16 - Discharge Diagnosis (1) COPD with exacerbation Is this a current diagnosis for this admission?: Yes (2) Acute hypoxemic respiratory failure Is this a current diagnosis for this admission?: Yes (3) Hypernatremia Is this a current diagnosis for this admission?: Yes (4) Protein-calorie malnutrition, mild Is this a current diagnosis for this admission?: Yes (5) Anxiety Is this a current diagnosis for this admission?: Yes (6) Tobacco abuse Is this a current diagnosis for this admission?: Yes - Additional Information Resuscitation Status: Full Code Discharge Diet: As Tolerated Discharge Activity: Activity As Tolerated Home Medications: Budesonide/Formoterol Fumarate [Symbicort HFA 160-4.5 mcg Inhaler 6 gm] 2 puff PO BID 09/18/16 Terazosin HCl [Hytrin] 10 mg PO BID 09/18/16 Albuterol Sulfate [Ventolin 0.083% Neb 2.5 mg/3 mL Ampul] 2.5 mg NEB [id number] # 30 vial.neb 09/20/16 Albuterol Sulfate [Ventolin Hfa] 1 - 2 puff IH Q4 PRN #1 hfa.aer.ad 09/20/16 Citalopram Hydrobromide [Celexa 10 mg Tablet] 10 mg PO DAILY #30 tablet Levofloxacin [Levaquin 750 mg Tablet] 750 mg PO DAILY #4 tablet 09/20/16 Prednisone [Deltasone 10 mg Tablet] 10 mg PO ASDIR PRN #21 tablet 09/20/16 History of Present Illness Patient complains of: Shortness of breath and a nonproductive cough History of Present Illness: JOSE FERNANDO is a 60 year old male with a past medical history of COPD and tobacco dependence. Patient describes an approximately 5 days of a nonproductive cough and worsening shortness of breath prompting him to seek evaluation emergency room where his found to have severe tachypnea and large AA gradient setting only 93% on 4 L nasal cannula. Patient denied chest pain fever nausea vomiting diaphoresis or palpitations. Denies infectious contacts, he is unclear as to whether he is received Pneumovax or influenza vaccine. Patient otherwise states compliance with his home medication regiment but continues to smoke 1 pack per day. Given the findings of COPD exacerbation the patient is referred to the hospitalist remission and management. Hospital Course Hospital Course: The patient was admitted to [facility]. The patient was placed on scheduled nebs as well as PRN nebs, steroids, and supplemental oxygen. The patient's oxygen, steroids, and nebs were titrated and weaned. The patient is back to baseline and able to complete sentences. The patient was able to ambulate on room air without any significant decrease in O2 setting. The patient is ready for discharge. The patient disclosed that he was significantly anxious and felt this contributed to her symptoms. Reviewed appears the patient does have a history of [facility] which [facility] The patient has asked for this to be medicated. Will give the patient on trial of Celexa with close follow-up. Patient denies suicidal homicidal ideation any intent to self-harm or harm others. Physical Exam Vital Signs: Temp Pulse Resp BP Pulse Ox 97.6 F 98 16 121/74 95 09/20/16 12:28 09/20/16 12:28 09/20/16 12:28 09/20/16 12:28 09/20/16 12:28 Intake & Output 09/19/16 09/20/16 09/21/16 23:59 23:59 23:59 Intake Total 945 651 Output Total 1500 450 Balance -555 201 Weight 65.9 kg General appearance: PRESENT: no acute distress, cooperative, well-developed, well-nourished Head exam: PRESENT: atraumatic, normocephalic Eye exam: PRESENT: conjunctiva pink, EOMI, PERRLA. ABSENT: scleral icterus Ear exam: PRESENT: normal external ear exam Mouth exam: PRESENT: moist, tongue midline Neck exam: ABSENT: carotid bruit, JVD, lymphadenopathy, thyromegaly Respiratory exam: PRESENT: symmetrical, unlabored, wheezes. ABSENT: rales, rhonchi, tachypnea Cardiovascular exam: PRESENT: RRR. ABSENT: diastolic murmur, rubs, systolic murmur Pulses: PRESENT: normal dorsalis pedis pul Vascular exam: PRESENT: normal capillary refill GI/Abdominal exam: PRESENT: normal bowel sounds, soft. ABSENT: distended, guarding, mass, organolmegaly, rebound, tenderness Rectal exam: PRESENT: deferred Extremities exam: PRESENT: full ROM. ABSENT: calf tenderness, clubbing, pedal edema Neurological exam: PRESENT: alert, awake, oriented to person, oriented to place , oriented to time, oriented to situation, CN II-XII grossly intact. ABSENT: motor sensory deficit Psychiatric exam: PRESENT: appropriate affect, normal mood. ABSENT: homicidal ideation, suicidal ideation Skin exam: PRESENT: dry, intact, warm. ABSENT: cyanosis, rash Results Laboratory Results: Labs- Last Values WBC 7.2 10^3/uL (4.0-10.5) 09/19/16 04:31 RBC 4.32 10^6/uL (4.35-5.55) L 09/19/16 04:31 Hgb 13.5 g/dL (13.5-17.0) 09/19/16 04:31 Hct 40.7 % (37.9-51.0) 09/19/16 04:31 MCV 94 fl (80-97) 09/19/16 04:31 MCH 31.4 pg (27.0-33.4) 09/19/16 04:31 MCHC 33.2 g/dL (32.0-36.0) 09/19/16 04:31 RDW 13.5 % (11.5-14.0) 09/19/16 04:31 Plt Count 220 10^3/uL (150-450) 09/19/16 04:31 Seg Neutrophils % 89.3 % (42-78) H 09/19/16 04:31 Lymphocytes % 8.1 % (13-45) L 09/19/16 04:31 Monocytes % 2.3 % (3-13) L 09/19/16 04:31 Eosinophils % 0.0 % (0-6) 09/19/16 04:31 Basophils % 0.3 % (0-2) 09/19/16 04:31 Absolute Neutrophils 6.5 10^3/uL (1.7-8.2) 09/19/16 04:31 Absolute Lymphocytes 0.6 10^3/uL (0.5-4.7) 09/19/16 04:31 Absolute Monocytes 0.2 10^3/uL (0.1-1.4) 09/19/16 04:31 Absolute Eosinophils 0.0 10^3/uL (0.0-0.6) 09/19/16 04:31 Absolute Basophils 0.0 10^3/uL (0.0-0.2) 09/19/16 04:31 VBG pH 7.28 (7.30-7.42) L 09/18/16 04:00 VBG pCO2 40.9 mmHg (35-63) 09/18/16 04:00 VBG HCO3 18.9 mmol/L (20-32) L 09/18/16 04:00 VBG Base Excess -7.3 mmol/L 09/18/16 04:00 Sodium 136.6 mmol/L (137-145) L 09/19/16 04:31 Potassium 4.3 mmol/L (3.6-5.0) 09/19/16 04:31 Chloride 100 mmol/L (98-107) 09/19/16 04:31 Carbon Dioxide 25 mmol/L (22-30) 09/19/16 04:31 Anion Gap 12 (5-19) 09/19/16 04:31 BUN 18 mg/dL (7-20) 09/19/16 04:31 Creatinine 0.97 mg/dL (0.52-1.25) 09/19/16 04:31 Est GFR ( Amer) > 60 (>60) 09/19/16 04:31 Est GFR (Non-Af Amer) > 60 (>60) 09/19/16 04:31 Glucose 144 mg/dL (75-110) H 09/19/16 04:31 Calcium 10.0 mg/dL (8.4-10.2) 09/19/16 04:31 Magnesium 1.9 mg/dL (1.6-2.3) 09/19/16 04:31 Total Bilirubin 0.4 mg/dL (0.2-1.3) 09/18/16 03:30 Direct Bilirubin 0.0 mg/dL (0.0-0.3) 09/18/16 03:30 AST 16 U/L (17-59) L 09/18/16 03:30 ALT 25 U/L (21-72) 09/18/16 03:30 Alkaline Phosphatase 53 U/L (38-126) 09/18/16 03:30 NT-Pro-B Natriuret Pep 46 pg/mL (5-900) 09/18/16 03:30 Total Protein 6.2 g/dL (6.3-8.2) L 09/18/16 03:30 Albumin 4.0 g/dL (3.5-5.0) 09/18/16 03:30 Impressions: Chest CT 09/18/16 00:00 IMPRESSION: Obstructive lung disease. No worrisome lung nodules. Chest X-Ray 09/18/16 03:39 IMPRESSION: No acute cardiopulmonary findings. Stable. Qualifiers PATEINT BEING DISCHARGED WITH ANY OF THE FOLLOWING DIAGNOSIS?: No Plan Discharge Plan: Patient will need to follow with primary care provider within one week for hospital follow-up. The patient has been referred to pulmonology Dr. Whitfield for establishment of care. Time Spent: Less than 30 Minutes
== END 2016-09-20 13:23 | disposition home or self-care (01) | DRG 190 ==
LOC: ER 03:25 → EH 04:59 → OBSVTOIN 10:29 → 4N 19:25
PROVIDERS: ADMIT Internal Medicine; ATTEND Internal Medicine
PROC: 3E0F73Z Introduction of Anti-inflammatory into Respiratory Tract, Via Natural or Artificial Opening (ICD-10-PCS; principal; 2016-09-18)
DX: J44.0 Chronic obstructive pulmonary disease with (acute) lower respiratory infection (principal); J18.9 Pneumonia, unspecified organism; J96.01 Acute respiratory failure with hypoxia; E87.0 Hyperosmolality and hypernatremia; E44.1 Mild protein-calorie malnutrition; Z68.1 Body mass index [BMI] 19.9 or less, adult; J44.1 Chronic obstructive pulmonary disease with (acute) exacerbation; F41.9 Anxiety disorder, unspecified; F17.210 Nicotine dependence, cigarettes, uncomplicated; F43.10 Post-traumatic stress disorder, unspecified; I50.9 Heart failure, unspecified; F32.9 Major depressive disorder, single episode, unspecified; Z79.899 Other long term (current) drug therapy; Z86.11 Personal history of tuberculosis; Z83.6 Family history of other diseases of the respiratory system; Z82.49 Family history of ischemic heart disease and other diseases of the circulatory system; Z88.8 Allergy status to other drugs, medicaments and biological substances; Z91.013 Allergy to seafood
CPT/HCPCS: 36415; 71010; 71250; 80048; 80053; 82803; 83735; 83880; 85025; 87070; 87205; 93005; 93010; 94640; 94799; 96365; 96366; 96367; 96372; 96375; 96376; 99285; G0378; J1644; J1956; J2930; J3475; J3490; J7512; J7620

== ENCOUNTER 2017-07-27 04:55 | Emergency (ER) | payer OTHER ==
[2017-07-27] MEDS ORDERED: IPRATROPIUM/ALBUTEROL 0.5-2.5 MG/3 ML AMPUL NEB ONE ×2 (05:05→10:05)
[2017-07-27] MEDS ORDERED: METHYLPREDNISOLONE INJ 125 MG/2 ML SDV IV ONE (05:06)
--- NOTE | 2017-07-27 05:08 | ER Document Report ---
Doctor's Note Notes: 07/27/17 05:07 Patient is a 61-year-old male who presents with complaint of difficulty breathing. History of COPD. He still smokes. He saw his primary care doctor at the [facility] on Sunday. He was placed on steroids. He said he felt better for the next 2-3 days but then yesterday started feeling bad again. Tonight her have a lot of difficulty breathing and therefore called animals. Patient complains of some chest tightness with the difficulty breathing. He denies having supplemental oxygen at home. He is currently on supplemental oxygen here in the ER at 3 L 70s 95% on3 L. Exam he has tight lung mohan. He is Mild tachypnea. He is able speak in 3-4 word sentences.
[2017-07-27] MEDS: MAGNESIUM SULFATE/D5W 1 GM/100 ML RTUPB IV SCH ×2 (05:18→06:40)
--- NOTE | 2017-07-27 05:45 | RADIOLOGY REPORT (SQ) ---
EXAM DESCRIPTION: CHEST SINGLE VIEW COMPLETED DATE/TIME: 07/27/2017 5:24 am REASON FOR STUDY: cough COMPARISON: Chest x-ray 09/18/2016, 09/15/2016. EXAM PARAMETERS: NUMBER OF VIEWS: One view. TECHNIQUE: 2 frontal radiographic images of the chest acquired. RADIATION DOSE: NA LIMITATIONS: None. FINDINGS: LUNGS AND PLEURA: Hyperlucent lungs, suggestive of emphysema. No consolidation, sizable p leural effusion or pneumothorax. MEDIASTINUM AND HILAR STRUCTURES: No masses. Contour normal. HEART AND VASCULAR STRUCTURES: Heart normal in size. No overt vascular congestion. BONES: No acute findings. HARDWARE: None in the chest. IMPRESSION: Emphysema. No consolidation or pleural effusion. TECHNICAL DOCUMENTATION: JOB ID: [id number] 2010 [employer]- All Rights Reserved
[2017-07-27 05:49] LABS: VENOUS BLOOD HCO3 28.8 mmol/L (20-32); VENOUS BLOOD PCO2 48.3 mmHg (35-63); VENOUS BLOOD PH 7.39 (7.30-7.42)
[2017-07-27 05:51] LABS: ABSOLUTE LYMPHOCYTES (AUTO) 1.2 10^3/uL (0.5-4.7); ABSOLUTE MONOCYTES (AUTO) 1.1 10^3/uL (0.1-1.4); ABSOLUTE NEUT (AUTO) 7.7 10^3/uL (1.7-8.2); BASOPHILS % (AUTO) 0.4 % (0-2); HEMOGLOBIN 13.4 g/dL (13.5-17.0); HGB HCT DIFFERENCE 1.2; LYMPHOCYTES % (AUTO) 12.1 % (13-45); MEAN CORPUSCULAR HEMOGLOBIN 31.1 pg (27.0-33.4); MEAN CORPUSCULAR HGB CONC 34.3 g/dL (32.0-36.0); MEAN CORPUSCULAR VOLUME 91 fl (80-97); MONOCYTES % (AUTO) 11.2 % (3-13); RED BLOOD COUNT 4.31 10^6/uL (4.35-5.55); RED CELL DISTRIBUTION WIDTH 13.4 % (11.5-14.0); SEGMENTED NEUTROPHILS % (AUTO) 76.3 % (42-78); WHITE BLOOD COUNT 10.1 10^3/uL (4.0-10.5)
[2017-07-27 06:03] LABS: ALANINE AMINOTRANSFERASE 26 U/L (21-72); ALBUMIN 3.8 g/dL (3.5-5.0); ALKALINE PHOSPHATASE 62 U/L (38-126); ANION GAP 13 (5-19); ASPARTATE AMINO TRANSFERASE 20 U/L (17-59); BILIRUBIN,DIRECT 0.4 mg/dL (0.0-0.4); BILIRUBIN,TOTAL 0.7 mg/dL (0.2-1.3); BLOOD UREA NITROGEN 13 mg/dL (7-20); CALCIUM 9.2 mg/dL (8.4-10.2); CARBON DIOXIDE 27 mmol/L (22-30); CHLORIDE 101 mmol/L (98-107); CREATININE RESULT 0.96 mg/dL (0.52-1.25); GLUCOSE 95 mg/dL (75-110); POTASSIUM 4.6 mmol/L (3.6-5.0); SODIUM 140.6 mmol/L (137-145); TOTAL PROTEIN 7.4 g/dL (6.3-8.2)
[2017-07-27] MEDS ORDERED: ALBUTEROL SULFATE 0.083% NEB 2.5 MG/3 ML AMPUL NEB ONE (06:32)
[2017-07-27] MEDS ORDERED: NORMAL SALINE 1000 ML 1,000 ML IV ONE (06:32)
--- NOTE | 2017-07-27 06:32 | ER Document Report ---
ED Respiratory Problem - General Mode of Arrival: Ambulatory Information source: Patient TRAVEL OUTSIDE OF THE [place] IN LAST 30 DAYS: No - HPI Patient complains to provider of: Cough, Short of breath Duration: Worse/persistent <KAYY COLLAZO - Last Filed: 07/27/17 06:52> <BENITO ZHANG - Last Filed: 07/27/17 10:05> - General Chief Complaint: Shortness Of Breath Stated Complaint: SHORTNESS OF BREATH Time Seen by Provider: 07/27/17 05:04 Notes: Patient is a 61 year old male that presents to the emergency department today with complaints of shortness of breath with an associated cough. Patient was seen by his PCP on Sunday and was started on prednisone, 50mg x7 days. Patient states he has taken two days of the steroids and has not yet taken it today. Patient states states his sputum has been thick and white. (KAYY COLLAZO) - Related Data Allergies/Adverse Reactions: iodine [Iodine] Allergy (Verified 09/18/16 04:50) Shellfish * [Shellfish] Allergy (Verified 09/18/16 04:50) Past Medical History - General Information source: Patient - Social History Smoking Status: Unknown if Ever Smoked Cigarette use (# per day): No Frequency of alcohol use: None Drug Abuse: None Lives with: Family Family History: Reviewed & Not Pertinent, CAD, COPD Patient has suicidal ideation: No Patient has homicidal ideation: No Pulmonary Medical History: Reports: Hx COPD, Hx Tuberculosis - Treatment in 1991 Psychiatric Medical History: Reports: Hx Depression Surgical Hx: Negative - Immunizations Hx Diphtheria, Pertussis, Tetanus Vaccination: Yes Hx Pneumococcal Vaccination: 03/12/12 <KAYY COLLAZO - Last Filed: 07/27/17 06:52> Review of Systems - Review of Systems Constitutional: No symptoms reported EENT: No symptoms reported Cardiovascular: No symptoms reported Respiratory: See HPI, Cough, Short of breath, Wheezing Gastrointestinal: No symptoms reported Genitourinary: No symptoms reported Male Genitourinary: No symptoms reported Musculoskeletal: No symptoms reported Skin: No symptoms reported Hematologic/Lymphatic: No symptoms reported Neurological/Psychological: No symptoms reported -: Yes All other systems reviewed and negative <KAYY COLLAZO - Last Filed: 07/27/17 06:52> Physical Exam - Vital signs Interpretation: Normal - General General appearance: Appears well, Alert - HEENT Head: Normocephalic, Atraumatic Eyes: Normal Pupils: PERRL - Respiratory Respiratory status: Retractions, Tachypnea Breath sounds: Productive cough, Rhonchi, Wheezing - Cardiovascular Rhythm: Regular Heart sounds: Normal auscultation Murmur: No - Abdominal Inspection: Normal Distension: No distension Bowel sounds: Normal Tenderness: Nontender Organomegaly: No organomegaly - Back Back: Normal, Nontender - Extremities General upper extremity: Normal inspection, Normal strength. No: Normal ROM General lower extremity: Normal inspection, Normal strength. No: Normal ROM - Neurological Neuro grossly intact: Yes Cognition: Normal Orientation: AAOx4 Yeny Coma Scale Eye Opening: Spontaneous Yeny Coma Scale Verbal: Oriented [place] Coma Scale Motor: Obeys Commands [place] Coma Scale Total: 15 Speech: Normal - Psychological Associated symptoms: Normal affect, Normal mood - Skin Skin Temperature: Warm Skin Moisture: Dry Skin Color: Normal <KAYY COLLAZO - Last Filed: 07/27/17 06:52> - Vital signs Vitals: Resp Pulse Ox 29 H 95 07/27/17 04:58 07/27/17 04:58 Course - Laboratory Result Diagrams: 07/27/17 05:35 07/27/17 05:35 <KAYY COLLAZO - Last Filed: 07/27/17 06:52> - Laboratory Result Diagrams: 07/27/17 05:35 07/27/17 05:35 - Diagnostic Test Radiology reviewed: Image reviewed, Reports reviewed - Chest x-ray shows emphysema without acute process - EKG Interpretation by [place] EKG shows normal: Sinus rhythm, [place], Intervals, QRS Complexes, ST-T Waves Rate: Tachycardia - 114 Rhythm: NSR [place]/QRS: Right axis deviation Voltage: Decreased voltage P Waves: ROBERTO <BENITO ZHANG - Last Filed: 07/27/17 10:05> - Re-evaluation Re-evalutation: 07/27/17 10:02 Patient's breathing is much better at this time. He still has some wheezes and rhonchi. He does feel much better. He reports he does have a nebulizer at home and describes the packaging for albuterol. He is a little vague about whether or not he is really been using the nebulizer. (BENITO ZHANG) - Vital Signs Vital signs: Temp Pulse Resp BP Pulse Ox 98 F 114 H 23 H 113/71 94 07/27/17 05:07 07/27/17 05:07 07/27/17 08:01 07/27/17 08:01 07/27/17 08:01 - Laboratory Laboratory results interpreted by me: 07/27/17 05:35 RBC 4.31 L Hgb 13.4 L Lymphocytes % 12.1 L Discharge <KAYY COLLAZO - Last Filed: 07/27/17 06:52> <BENITO ZHANG - Last Filed: 07/27/17 10:05> - Discharge Clinical Impression: Acute exacerbation of chronic obstructive pulmonary disease (COPD), Tobacco abuse Condition: Stable Disposition: HOME, SELF-CARE Additional Instructions: Continue taking your prednisone as prescribed at 50 mg once a day. Be sure to take today's dose when you get home. Use your nebulizer every 2-4 hours for wheezing and shortness of breath. Drink plenty of fluids. Try to stop smoking. Follow-up with your primary care provider on Sunday for recheck. RETURN TO THE EMERGENCY ROOM IF ANY NEW OR WORSENING SYMPTOMS. Referrals: HUMA JORDAN MD [Primary Care Provider] - 07/30/17 Scribe Attestation: 07/27/17 07:55 I personally performed the services described in the documentation, reviewed and edited the documentation which was dictated to the scribe in my presence, and it accurately records my words and actions. (BENITO ZHANG) Scribe Documentation - Scribe Written by Kirsty:: Kirsty Marshall, 07/27/2017 [id number] acting as scribe for :: Sarah <KAYY COLLAZO - Last Filed: 07/27/17 06:52>
--- NOTE | 2017-07-27 06:41 | EKG REPORT ---
SEVERITY:- ABNORMAL ECG - SINUS TACHYCARDIA RIGHT ATRIAL ABNORMALITY LOW VOLTAGE ANTERIOR Q WAVES, POSSIBLY DUE TO LVH VS OLD ANTERIOR [place] : Confirmed by: Sabas Flores MD 27-Jul-2017 06:40:05
[2017-07-27 10:17] VITALS: BP 136/88
== END 2017-07-27 10:53 | disposition home or self-care (01) ==
LOC: ER 04:55
DX: J44.1 Chronic obstructive pulmonary disease with (acute) exacerbation (principal); Z91.013 Allergy to seafood; Z86.11 Personal history of tuberculosis
CPT/HCPCS: 93005; 94640 ×2; 99285; 96375; 96365; 96366; 36415; 85025; 80053; 84484; 82803; 71010; 93010; J2930; J3475; J7030; J7620

== ENCOUNTER 2018-04-24 08:11 | Emergency (ER) | payer OTHER ==
--- NOTE | 2018-04-24 08:31 | ER Document Report ---
ED General - General Chief Complaint: Breathing Difficulty Stated Complaint: SHORTNESS OF BREATH Time Seen by Provider: 04/24/18 08:29 TRAVEL OUTSIDE OF THE [place] IN LAST 30 DAYS: No - HPI Patient complains to provider of: SOb and Cough Notes: Unfortunate 62-year-old man with lengthy history of COPD, asthma presents with increasing work of breathing shortness of breath and sputum production for the last 3 days. Patient has been hospitalized multiple times in the past for pneumonia believes he has another pneumonia. Patient has been out of his respiratory medications for approximately 5 days. He endorses decreased exercise tolerance as well. Denies fever chills. Cough is productive of yellow sputum. - Related Data Allergies/Adverse Reactions: iodine [Iodine] Allergy (Verified 04/24/18 08:13) Shellfish * [Shellfish] Allergy (Verified 04/24/18 08:13) Past Medical History - Social History Smoking Status: Current Every Day Smoker Family History: Reviewed & Not Pertinent, CAD, COPD - Past Medical History Cardiac Medical History: Reports: Hx Congestive Heart Failure Pulmonary Medical History: Reports: Hx COPD, Hx Tuberculosis - Treatment in 1991 Denies: Hx Respiratory Failure, Hx Sleep Apnea Renal/ Medical History: Denies: Hx Peritoneal Dialysis Malignancy Medical History: Denies Hx Lung Cancer Psychiatric Medical History: Reports: Hx Depression Past Surgical History: Denies: Hx Appendectomy, Hx Bowel Surgery, Hx Cholecystectomy, Hx Coronary Artery Bypass Graft, Hx Gastric Bypass Surgery, Hx Herniorrhaphy, Hx Pacemaker, Hx Tonsillectomy - Immunizations Hx Diphtheria, Pertussis, Tetanus Vaccination: Yes Hx Pneumococcal Vaccination: 03/12/12 Review of Systems - Review of Systems Notes: REVIEW OF SYSTEMS: CONSTITUTIONAL: -fevers, -chills EENT: -eye pain, -difficulty swallowing, -nasal congestion CARDIOVASCULAR: -chest pain, -syncope. RESPIRATORY: +cough, +SOB GASTROINTESTINAL: -abdominal pain, -nausea, -vomiting, -diarrhea GENITOURINARY: -dysuria, -hematuria MUSCULOSKELETAL: -back pain, -neck pain SKIN: -rash or skin lesions. HEMATOLOGIC: -easy bruising or bleeding. LYMPHATIC: -swollen, enlarged glands. NEUROLOGICAL: -altered mental status or loss of consciousness, -headache, - neurologic symptoms PSYCHIATRIC: -anxiety, -depression. ALL OTHER SYSTEMS REVIEWED AND NEGATIVE. Physical Exam - Vital signs Vitals: Resp Pulse Ox 19 95 04/24/18 09:00 04/24/18 09:00 - Notes Notes: PHYSICAL EXAMINATION: GENERAL: Well-appearing, well-nourished and in no acute distress. HEAD: Atraumatic, normocephalic. EYES: Pupils equal round and reactive to light, extraocular movements intact, sclera anicteric, conjunctiva are normal. ENT: nares patent, oropharynx clear without exudates. Moist mucous membranes. NECK: Normal range of motion, supple without lymphadenopathy LUNGS: Diffuse bilateral rhonchi, biphasic wheezing HEART: Regular rate and rhythm without murmurs ABDOMEN: Soft, nontender, normoactive bowel sounds. No guarding, no rebound. No masses appreciated. EXTREMITIES: Normal range of motion, no pitting or edema. No cyanosis. NEUROLOGICAL: Cranial nerves grossly intact. Normal speech, normal gait. Normal sensory and motor exams. PSYCH: Normal mood, normal affect. SKIN: Warm, Dry, normal turgor, no rashes or lesions noted. Course - Re-evaluation Re-evalutation: 04/24/18 10:47 Pleasant 62-year-old male with lengthy history of COPD presents with increasing sputum production and cough. Patient's imaging study reveals no focal infiltrate or pneumonia. Patient is afebrile has stable vital signs within normal limits is not requiring any supplemental oxygen. Patient's extensive lab workup also unremarkable. Patient given 3 DuoNeb and apartment and IV steroids. Feeling much improved. Patient scheduled to follow-up with his family doctor this afternoon at the [place]. Will be discharged home with oral doxycycline and burst dose of steroids. - Vital Signs Vital signs: Temp Pulse Resp BP Pulse Ox 24 H 130/89 H 100 04/24/18 10:01 04/24/18 10:00 04/24/18 10:01 - Laboratory Result Diagrams: 04/24/18 09:28 04/24/18 09:28 Laboratory results interpreted by me: 04/24/18 09:28 Eosinophils % 6.6 H - EKG Interpretation by Me EKG shows normal: Sinus rhythm Rate: Normal Rhythm: NSR Additional EKG results interpreted by me: 04/24/18 09:[address] elevations or depressions, no pathologic T-wave inversions. Discharge - Discharge Clinical Impression: COPD with exacerbation Condition: Good Disposition: HOME, SELF-CARE Admitting Provider: See your PCP today Instructions: Chronic Obstructive Lung Disease ([facility]) Prescriptions: Doxycycline Hyclate 100 mg PO BID #14 capsule Prednisone [Deltasone 20 mg Tablet] 3 tab PO DAILY 3 Days tablet
[2018-04-24] MEDS ORDERED: IPRATROPIUM/ALBUTEROL 0.5-2.5 MG/3 ML AMPUL NEB ONE ×3 (08:33)
[2018-04-24] MEDS ORDERED: METHYLPREDNISOLONE INJ 125 MG/2 ML SDV IV ONE (08:34)
--- NOTE | 2018-04-24 09:11 | RADIOLOGY REPORT (SQ) ---
EXAM DESCRIPTION: CHEST 2 VIEWS COMPLETED DATE/TIME: 04/24/2018 9:02 am REASON FOR STUDY: cough COMPARISON: 03/27/2014 EXAM PARAMETERS: NUMBER OF VIEWS: two views TECHNIQUE: Digital Frontal and Lateral radiographic views of the chest acquired. RADIATION DOSE: NA LIMITATIONS: none FINDINGS: LUNGS AND PLEURA: Findings of COPD, unchanged. Chronic mild stable interstitial changes in the lungs. No acute pulmonary consolidation. No pneumothorax or pleural effusion. MEDIASTINUM AND HILAR STRUCTURES: No masses or contour abnormalities. HEART AND VASCULAR STRUCTURES: Heart normal size. No evidence for failure. BONES: No acute findings. HARDWARE: None in the chest. OTHER: No other significant finding. IMPRESSION: 1 No significant interval changes since the previous examination dated 03/27/2014. Findin gs of COPD and chronic mild interstitial changes in the lungs. No acute findings. TECHNICAL DOCUMENTATION: JOB ID: [id number] [employer]- All Rights Reserved Reading location - IP/workstation name: [email or web address]
[2018-04-24 10:09] LABS: ABSOLUTE EOSINOPHILS # (AUTO) 0.3 10^3/uL (0.0-0.6); ABSOLUTE LYMPHOCYTES (AUTO) 1.8 10^3/uL (0.5-4.7); ABSOLUTE MONOCYTES (AUTO) 0.4 10^3/uL (0.1-1.4); ABSOLUTE NEUT (AUTO) 2.4 10^3/uL (1.7-8.2); BASOPHILS % (AUTO) 0.7 % (0-2); EOSINOPHILS % (AUTO) 6.6 % (0-6); HEMATOCRIT 44.7 % (37.9-51.0); HEMOGLOBIN 15.2 g/dL (13.5-17.0); LYMPHOCYTES % (AUTO) 35.8 % (13-45); MEAN CORPUSCULAR VOLUME 94 fl (80-97); MONOCYTES % (AUTO) 8.9 % (3-13); PLATELET COUNT 253 10^3/uL (150-450); RED BLOOD COUNT 4.74 10^6/uL (4.35-5.55); RED CELL DISTRIBUTION WIDTH 13.8 % (11.5-14.0); TOTAL CELLS COUNTED % (AUTO) 100 %
[2018-04-24 10:34] LABS: ANION GAP 11 (5-19); BLOOD UREA NITROGEN 9 mg/dL (7-20); CALCIUM 9.3 mg/dL (8.4-10.2); CARBON DIOXIDE 29 mmol/L (22-30); CHLORIDE 102 mmol/L (98-107); GLUCOSE 89 mg/dL (75-110); POTASSIUM 4.4 mmol/L (3.6-5.0); SODIUM 142.2 mmol/L (137-145)
[2018-04-24 11:16] VITALS: BP 114/81
--- NOTE | 2018-04-24 13:26 | EKG REPORT ---
SEVERITY:- ABNORMAL ECG - SINUS RHYTHM LOW VOLTAGE IN FRONTAL LEADS PROBABLE LEFT VENTRICULAR HYPERTROPHY ANTERIOR Q WAVES, POSSIBLY DUE TO LVH : Confirmed by: Sabas Flores MD 24-Apr-2018 13:25:32
== END 2018-04-24 11:27 | disposition home or self-care (01) ==
LOC: ER 08:11
DX: J44.1 Chronic obstructive pulmonary disease with (acute) exacerbation (principal); F17.200 Nicotine dependence, unspecified, uncomplicated; I50.9 Heart failure, unspecified
CPT/HCPCS: 93005; 94640 ×2; 99285; 96374; 36415; 87040; 85025; 80048; 83605; 71046; 93010; J2930; J7620

== ENCOUNTER 2018-10-28 12:36 | Emergency (ER) | payer OTHER ==
[2018-10-28] MEDS ORDERED: MAGNESIUM SULFATE/D5W 1 GM/100 ML RTUPB IV ONE ×2 (12:49)
--- NOTE | 2018-10-28 12:58 | ER Document Report ---
ED General - General Stated Complaint: SHORTNESS OF BREATH Time Seen by Provider: 10/28/18 12:41 Primary Care Provider: HUMA JORDAN MD [NO LOCAL MD] - Follow up as needed TRAVEL OUTSIDE OF THE [place] IN LAST 30 DAYS: No - HPI Notes: Patient is a 62-year-old male with a history of emphysema and COPD who presents to the emergency department complaining of COPD exacerbation with increased chest tightness, wheezing, semi-productive cough that began about 4 days ago. Patient states that it was worse Sunday night into Sunday and has somewhat improved, but is still there. He has been using inhalers with some relief. Patient arrived by EMS who provided him with 3 breathing treatments, fluids, and Solu-Medrol. He is eating and drinking without difficulty. He is urinating normally and having normal bowel movements. No other recent illness. He has had associated dyspnea on exertion which is not uncommon for him with his COPD flareups. He is not on home O2. No significant cardiopulmonary medical history otherwise. Denies any prolonged immobilization, distance travel, recent surgery/trauma, personal cancer history, hormone use, or previous DVT/PE. Denies any headache, fever, neck pain, URI, sore throat, chest pain, palpitations, syncope, abdominal pain, nausea/vomiting/diarrhea, urinary retention, dysuria, hematuria, or rash. - Related Data Allergies/Adverse Reactions: iodine [Iodine] Allergy (Verified 04/24/18 08:13) Shellfish * [Shellfish] Allergy (Verified 04/24/18 08:13) shellfish derived Allergy (Verified 06/26/17 08:38) Past Medical History - Social History Smoking Status: Current Every Day Smoker Family History: CAD, COPD, Reviewed & Not Pertinent - Past Medical History Cardiac Medical History: Reports: Hx Congestive Heart Failure Denies: Hx Coronary Artery Disease Pulmonary Medical History: Reports: Hx COPD, Hx Tuberculosis - Treatment in 1991 Denies: Hx Respiratory Failure, Hx Sleep Apnea Endocrine Medical History: Denies: Hx Diabetes Mellitus Type 1, Hx Diabetes Mellitus Type 2 Renal/ Medical History: Reports: Hx Benign Prostatic Hyperplasia. Denies: Hx Peritoneal Dialysis Malignancy Medical History: Denies Hx Lung Cancer GI Medical History: Reports: Hx Gastroesophageal Reflux Disease Psychiatric Medical History: Reports: Hx Depression Past Surgical History: Denies: Hx Appendectomy, Hx Bowel Surgery, Hx Cholecystectomy, Hx Coronary Artery Bypass Graft, Hx Gastric Bypass Surgery, Hx Herniorrhaphy, Hx Pacemaker, Hx Tonsillectomy - Immunizations Hx Diphtheria, Pertussis, Tetanus Vaccination: Yes Hx Pneumococcal Vaccination: 03/12/12 Review of Systems - Review of Systems -: Yes All other systems reviewed and negative Physical Exam - Vital signs Vitals: Pulse Ox 91 L 10/28/18 12:49 - Notes Notes: PHYSICAL EXAMINATION: GENERAL: Well-appearing, well-nourished and in no acute distress. HEAD: Atraumatic, normocephalic. EYES: Pupils equal round and reactive to light, extraocular movements intact, sclera anicteric, conjunctiva are normal. ENT: Nares patent and without discharge. oropharynx clear without exudates. No tonsilar hypertrophy or erythema. Moist mucous membranes. NECK: Normal range of motion, supple without lymphadenopathy LUNGS: Wheezing b/l. no retractions. HEART: Regular rate and rhythm without murmurs, rubs, gallops. ABDOMEN: Soft, nontender, nondistended abdomen. No guarding, no rebound. No masses appreciated. Normal bowel sounds present. No CVA tenderness bilaterally. Musculoskeletal: FROM to passive/active. Strength 5+/5. Vicky neg. No asymmetry to LE's. Extremities: No cyanosis, clubbing, or edema b/l. Peripheral pulses 2+. Capillary refill less than 3 seconds. NEUROLOGICAL: Normal speech, normal gait. PSYCH: Normal mood, normal affect. SKIN: Warm, Dry, normal turgor, no rashes or lesions noted. Course - Re-evaluation Re-evalutation: 10/28/18 15:15 Patient is an afebrile, well-hydrated 62-year-old male who presents to the ED with acute COPD exacerbation. Vitals are acceptable without any significant tac hycardia, tachypnea, or hypoxia. Patient is nontoxic-appearing and is tolerating p.o. without any difficulties. CBC, CMP, VBG, BNP, EKG/cardiac enzymes, chest x-ray are all unremarkable for any acute pathology. Patient has a heart score of 3, Wells score of 0. Pt was given breathing treatments x3 by EMS as well as solumedrol. He received fluids and magnesium IV. Pt now feels much better and is asymptomatic. We ambulated the patient and his O2 maintained >93% on RA. He has never had any chest pain. Patient's presentation and symptomatology creates low suspicion for ACS, PE, pneumothorax, pericarditis, dissection, respiratory compromise, severe dehydration, sepsis, meningitis, or other systemic emergent condition at this time. Patient is aware that his condition can change from initial presentation and he needs to monitor symptoms closely and seek medical attention for any acute changes. Pt is feeling better and would like to go home. Rx for doxy and short course of steroids. Recommend conservative measures for symptoms. Recheck with your PCM in 2-3 days. Consider consult with Pulmonology. Return to the ED with any worsening/concerning symptoms otherwise as reviewed in discharge. Patient is in agreement. - Vital Signs Vital signs: Temp Pulse Resp BP Pulse Ox 98.1 F 23 H 110/76 93 10/28/18 12:59 10/28/18 14:02 10/28/18 14:02 10/28/18 14:02 - Laboratory Result Diagrams: 10/28/18 13:02 10/28/18 13:02 Laboratory results interpreted by me: 10/28/18 10/28/18 13:02 13:02 RBC 4.19 L Sodium 136.7 L ALT 14 L Discharge - Discharge Clinical Impression: COPD exacerbation Condition: Stable Disposition: HOME, SELF-CARE Additional Instructions: Maintain adequate fluid and food intake Take home medications and inhalers as directed Healthy diet Monitor symptoms for any acute changes Recheck with your PCM in 2-3 days Consider a follow-up with Pulmonology Return to the ED with any worsening symptoms and/or development of fever, headache, chest pain, palpitations, syncope, shortness of breath, trouble breathing, abdominal pain, n/v/d, blood in stool/urine, loss of control of bowel/bladder, urinary retention, muscle weakness/paralysis, numbness/tingling, or other worsening symptoms that are concerning to you. Prescriptions: Doxycycline Hyclate 100 mg PO BID #20 capsule Prednisone [Deltasone 20 mg Tablet] 3 tab PO DAILY 3 Days #9 tablet Referrals: HUMA JORDAN MD [NO LOCAL MD] - Follow up as needed ANH DE JESUS MD [ACTIVE STAFF] - Follow up as needed
[2018-10-28 13:15] LABS: VENOUS BLOOD BASE EXCESS 2.4 mmol/L; VENOUS BLOOD HCO3 28.6 mmol/L (20-32); VENOUS BLOOD PCO2 50.3 mmHg (35-63); VENOUS BLOOD PH 7.37 (7.30-7.42)
[2018-10-28 13:18] LABS: ABSOLUTE BASOPHILS # (AUTO) 0.1 10^3/uL (0.0-0.2); ABSOLUTE EOSINOPHILS # (AUTO) 0.1 10^3/uL (0.0-0.6); ABSOLUTE LYMPHOCYTES (AUTO) 1.9 10^3/uL (0.5-4.7); ABSOLUTE MONOCYTES (AUTO) 0.6 10^3/uL (0.1-1.4); ABSOLUTE NEUT (AUTO) 4.5 10^3/uL (1.7-8.2); BASOPHILS % (AUTO) 1.4 % (0-2); HEMATOCRIT 39.1 % (37.9-51.0); HEMOGLOBIN 13.5 g/dL (13.5-17.0); MEAN CORPUSCULAR HEMOGLOBIN 32.2 pg (27.0-33.4); MEAN CORPUSCULAR HGB CONC 34.5 g/dL (32.0-36.0); MEAN CORPUSCULAR VOLUME 93 fl (80-97); MONOCYTES % (AUTO) 8.3 % (3-13); PLATELET COUNT 189 10^3/uL (150-450); RED BLOOD COUNT 4.19 10^6/uL (4.35-5.55); RED CELL DISTRIBUTION WIDTH 13.5 % (11.5-14.0); SEGMENTED NEUTROPHILS % (AUTO) 62.3 % (42-78); TOTAL CELLS COUNTED % (AUTO) 100 %; WHITE BLOOD COUNT 7.2 10^3/uL (4.0-10.5)
[2018-10-28 13:40] LABS: ALANINE AMINOTRANSFERASE 14 U/L (21-72); ALBUMIN 3.9 g/dL (3.5-5.0); ALKALINE PHOSPHATASE 60 U/L (38-126); ANION GAP 10 (5-19); ASPARTATE AMINO TRANSFERASE 22 U/L (17-59); BILIRUBIN,DIRECT 0.4 mg/dL (0.0-0.4); BILIRUBIN,TOTAL 0.8 mg/dL (0.2-1.3); BLOOD UREA NITROGEN 11 mg/dL (7-20); CALCIUM 8.6 mg/dL (8.4-10.2); CARBON DIOXIDE 26 mmol/L (22-30); CHLORIDE 101 mmol/L (98-107); GLUCOSE 108 mg/dL (75-110); SODIUM 136.7 mmol/L (137-145)
[2018-10-28 13:52] LABS: NT PRO BNP 33 pg/mL (5-900)
[2018-10-28 13:53] LABS: TROPONIN I < 0.012 ng/mL
--- NOTE | 2018-10-28 13:54 | RADIOLOGY REPORT (SQ) ---
04/24/2018 EXAM DESCRIPTION: CHEST SINGLE VIEW COMPLETED DATE/TIME: 10/28/2018 1:19 pm REASON FOR STUDY: sob, cough COMPARISON: 04/24/2018 EXAM PARAMETERS: NUMBER OF VIEWS: One view. TECHNIQUE: Single frontal radiographic view of the chest acquired. RADIATION DOSE: NA LIMITATIONS: None. FINDINGS: LUNGS AND PLEURA: Findings of COPD and chronic mild interstitial changes in the lungs. N o acute pulmonary consolidation. No pneumothorax or pleural effusion. MEDIASTINUM AND HILAR STRUCTURES: No masses. Contour normal. HEART AND VASCULAR STRUCTURES: Heart normal in size. Normal vasculature. BONES: No acute findings. HARDWARE: None in the chest. OTHER: No other significant finding. IMPRESSION: 1. No significant interval changes since the prior study dated 04/24/2018. Findings of COPD. No acute findings. TECHNICAL DOCUMENTATION: JOB ID: [id number] [employer]- All Rights Reserved Reading location - IP/workstation name: [email or web address]
[2018-10-28 15:41] VITALS: BP 113/79
--- NOTE | 2018-10-28 21:48 | EKG REPORT ---
SEVERITY:- BORDERLINE ECG - SINUS RHYTHM LOW VOLTAGE IN FRONTAL LEADS BORDERLINE R WAVE PROGRESSION, ANTERIOR LEADS : Confirmed by: Allison Stroud MD 28-Oct-2018 21:48:04
== END 2018-10-28 15:43 | disposition home or self-care (01) ==
LOC: ER 12:36
DX: J44.1 Chronic obstructive pulmonary disease with (acute) exacerbation (principal); F17.200 Nicotine dependence, unspecified, uncomplicated; I50.9 Heart failure, unspecified
CPT/HCPCS: 93005; 96376; 99285; 96374; 36415; 85025; 80053; 84484; 82803; 83880; 71045; 93010; J3475

== ENCOUNTER 2019-01-06 09:18 | Inpatient (IN) | payer OTHER ==
[2019-01-06] MEDS ORDERED: PREDNISONE 20 MG TABLET PO ONE (10:22)
[2019-01-06] MEDS ORDERED: IPRATROPIUM/ALBUTEROL 0.5-2.5 MG/3 ML AMPUL NEB ONE ×3 (10:22→11:18)
--- NOTE | 2019-01-06 10:24 | ER Document Report ---
ED Medical Screen (RME) - General Chief Complaint: Chest Pain Stated Complaint: CHEST PAIN/DIFFICULTY BREATHING Time Seen by Provider: 01/06/19 10:21 Primary Care Provider: ROCKY DEL ANGEL [Primary Care Provider] - Follow up as needed Mode of Arrival: Wheelchair Notes: 63-year-old male presented to ED for complaint of cough short of breath and wheezing. He is a noncompliant COPD patient. He also complains of chest pain. He is alert oriented lungs are very tight coarse wheezes throughout. He refused neb treatments in the EMS on the way to the hospital. He states he does smoke almost a pack a day but not quite. He drinks occasionally he says he has not had any alcohol or drugs months. He lives with his brother and does not work he has a history of COPD BPH and bilateral inguinal inguinal hernias with no surgery and yet. I have greeted and performed a rapid initial assessment of this patient. A comprehensive ED assessment and evaluation of the patient, analysis of test results and completion of medical decision making process will be conducted by an additional ED providers. Dictation of this chart was performed using voice recognition software; therefore, there may be some unintended grammatical errors. TRAVEL OUTSIDE OF THE [place] IN LAST 30 DAYS: No - Related Data Allergies/Adverse Reactions: iodine [Iodine] Allergy (Verified 04/24/18 08:13) Shellfish * [Shellfish] Allergy (Verified 04/24/18 08:13) shellfish derived Allergy (Verified 06/26/17 08:38) Past Medical History - Past Medical History Cardiac Medical History: Reports: Hx Congestive Heart Failure Denies: Hx Coronary Artery Disease Pulmonary Medical History: Reports: Hx COPD, Hx Tuberculosis - Treatment in 1991 Denies: Hx Respiratory Failure, Hx Sleep Apnea Endocrine Medical History: Denies: Hx Diabetes Mellitus Type 1, Hx Diabetes Mellitus Type 2 Renal/ Medical History: Reports: Hx Benign Prostatic Hyperplasia. Denies: Hx Peritoneal Dialysis Malignancy Medical History: Denies Hx Lung Cancer GI Medical History: Reports: Hx Gastroesophageal Reflux Disease Psychiatric Medical History: Reports: Hx Depression Past Surgical History: Denies: Hx Appendectomy, Hx Bowel Surgery, Hx Cholecystectomy, Hx Coronary Artery Bypass Graft, Hx Gastric Bypass Surgery, Hx Herniorrhaphy, Hx Pacemaker, Hx Tonsillectomy - Immunizations Hx Diphtheria, Pertussis, Tetanus Vaccination: Yes History of Influenza Vaccine for 05/2017 - 10/2017 Season: Unknown Physical Exam - Vital signs Vitals: Temp Pulse Resp BP Pulse Ox 97.5 F 82 18 112/77 96 01/06/19 09:40 01/06/19 09:40 01/06/19 09:40 01/06/19 09:40 01/06/19 09:40 Course - Vital Signs Vital signs: Temp Pulse Resp BP Pulse Ox 97.5 F 82 18 112/77 96 01/06/19 09:40 01/06/19 09:40 01/06/19 09:40 01/06/19 09:40 01/06/19 09:40 Doctor's Discharge - Discharge Referrals: [facility] [Primary Care Provider] - Follow up as needed
[2019-01-06] MEDS: ALBUTEROL SULFATE 0.083% NEB 2.5 MG/3 ML AMPUL NEB SCH ×3 (10:36→11:30)
[2019-01-06 10:46] LABS: ABSOLUTE EOSINOPHILS # (AUTO) 0.3 10^3/uL (0.0-0.6); ABSOLUTE LYMPHOCYTES (AUTO) 1.5 10^3/uL (0.5-4.7); ABSOLUTE MONOCYTES (AUTO) 0.4 10^3/uL (0.1-1.4); ABSOLUTE NEUT (AUTO) 2.1 10^3/uL (1.7-8.2); BASOPHILS % (AUTO) 0.7 % (0-2); EOSINOPHILS % (AUTO) 7.4 % (0-6); HEMATOCRIT 46.3 % (37.9-51.0); HEMOGLOBIN 15.3 g/dL (13.5-17.0); LYMPHOCYTES % (AUTO) 34.2 % (13-45); MEAN CORPUSCULAR HEMOGLOBIN 30.8 pg (27.0-33.4); MEAN CORPUSCULAR VOLUME 93 fl (80-97); MONOCYTES % (AUTO) 8.9 % (3-13); PLATELET COUNT 192 10^3/uL (150-450); RED BLOOD COUNT 4.96 10^6/uL (4.35-5.55); RED CELL DISTRIBUTION WIDTH 14.1 % (11.5-14.0); SEGMENTED NEUTROPHILS % (AUTO) 48.8 % (42-78); TOTAL CELLS COUNTED % (AUTO) 100 %; WHITE BLOOD COUNT 4.3 10^3/uL (4.0-10.5)
--- NOTE | 2019-01-06 10:49 | ER Document Report ---
ED General - General Chief Complaint: Chest Pain Stated Complaint: CHEST PAIN/DIFFICULTY BREATHING Time Seen by Provider: 01/06/19 10:21 Primary Care Provider: BEAN,ROCKY [NO LOCAL MD] - Follow up as needed Mode of Arrival: Wheelchair TRAVEL OUTSIDE OF THE [place] IN LAST 30 DAYS: No - HPI Patient complains to provider of: Shortness of breath Notes: Patient with a lengthy history of COPD presents with increasing work of breathing sputum production shortness of breath. Decreased exercise tolerance. Patient does not chronically wear oxygen. Patient continues to smoke daily cigarettes. Patient had to be mildly hypoxic on presentation. Patient initially complained of some chest pain 2/10 stabbing in nature when he coughs without radiation nothing makes it better or worse. Patient denies fever chills. - Related Data Allergies/Adverse Reactions: iodine [Iodine] Allergy (Verified 01/06/19 10:43) Shellfish * [Shellfish] Allergy (Verified 01/06/19 10:43) shellfish derived Allergy (Verified 01/06/19 10:43) Past Medical History - Social History Smoking Status: Current Every Day Smoker Chew tobacco use (# tins/day): No Frequency of alcohol use: Occasional Drug Abuse: None Family History: CAD, COPD, Reviewed & Not Pertinent Patient has suicidal ideation: No Patient has homicidal ideation: No - Past Medical History Cardiac Medical History: Reports: Hx Congestive Heart Failure Denies: Hx Coronary Artery Disease Pulmonary Medical History: Reports: Hx COPD, Hx Tuberculosis - Treatment in 1991 Denies: Hx Respiratory Failure, Hx Sleep Apnea Endocrine Medical History: Denies: Hx Diabetes Mellitus Type 1, Hx Diabetes Mellitus Type 2 Renal/ Medical History: Reports: Hx Benign Prostatic Hyperplasia. Denies: Hx Peritoneal Dialysis Malignancy Medical History: Denies Hx Lung Cancer GI Medical History: Reports: Hx Gastroesophageal Reflux Disease Psychiatric Medical History: Reports: Hx Depression Past Surgical History: Denies: Hx Appendectomy, Hx Bowel Surgery, Hx Cholecystectomy, Hx Coronary Artery Bypass Graft, Hx Gastric Bypass Surgery, Hx Herniorrhaphy, Hx Pacemaker, Hx Tonsillectomy - Immunizations Hx Diphtheria, Pertussis, Tetanus Vaccination: Yes Hx Pneumococcal Vaccination: 03/12/12 Review of Systems - Review of Systems Notes: REVIEW OF SYSTEMS: CONSTITUTIONAL: -fevers, -chills EENT: -eye pain, -difficulty swallowing, -nasal congestion CARDIOVASCULAR: -chest pain, -syncope. RESPIRATORY: Positive cough, positive shortness of breath, positive wheezing GASTROINTESTINAL: -abdominal pain, -nausea, -vomiting, -diarrhea GENITOURINARY: -dysuria, -hematuria MUSCULOSKELETAL: -back pain, -neck pain SKIN: -rash or skin lesions. HEMATOLOGIC: -easy bruising or bleeding. LYMPHATIC: -swollen, enlarged glands. NEUROLOGICAL: -altered mental status or loss of consciousness, -headache, -neurologic symptoms PSYCHIATRIC: -anxiety, -depression. ALL OTHER SYSTEMS REVIEWED AND NEGATIVE. Physical Exam - Vital signs Vitals: Temp Pulse Resp BP Pulse Ox 97.5 F 82 18 112/77 96 01/06/19 09:40 01/06/19 09:40 01/06/19 09:40 01/06/19 09:40 01/06/19 09:40 - Notes Notes: PHYSICAL EXAMINATION: GENERAL: Well-appearing, well-nourished and in severe acute distress. HEAD: Atraumatic, normocephalic. EYES: Pupils equal round and reactive to light, extraocular movements intact, sclera anicteric, conjunctiva are normal. ENT: nares patent, oropharynx clear without exudates. Moist mucous membranes. NECK: Normal range of motion, supple without lymphadenopathy LUNGS: Biphasic wheezing, coarse rhonchi HEART: Tachycardia and rhythm without murmurs ABDOMEN: Soft, nontender, normoactive bowel sounds. No guarding, no rebound. No masses appreciated. EXTREMITIES: Normal range of motion, no pitting or edema. No cyanosis. NEUROLOGICAL: Cranial nerves grossly intact. Normal speech, normal gait. Normal sensory and motor exams. PSYCH: Normal mood, normal affect. SKIN: Warm, Dry, normal turgor, no rashes or lesions noted. Course - Re-evaluation Re-evalutation: 01/06/19 11:26 Critically ill-appearing 63-year-old -[place] male presents in severe respiratory distress. Patient was given multiple breathing treatments in the department oral steroids. EKG ordered, chest x-ray, extensive lab work-up as well. Patient received a total of 4 breathing treatments, oral steroids and IV magnesium. Respiratory status mildly improved. 01/06/19 11:45 Patient continued to be monitored given multiple breathing treatments. EKG is no ischemic changes, chest x-rays no focal infiltrate concerning for pneumonia. This is a presumed severe COPD exacerbation. Patient's respiratory rate much improved. Patient will be admitted to the hospital for further management of his COPD exacerbation - Vital Signs Vital signs: Temp Pulse Resp BP Pulse Ox 97.6 F 82 18 112/77 96 01/06/19 12:01 01/06/19 09:40 01/06/19 09:40 01/06/19 09:40 01/06/19 09:40 - Laboratory Result Diagrams: 01/06/19 10:37 01/06/19 10:37 Laboratory results interpreted by me: 01/06/19 01/06/19 10:37 10:37 RDW 14.1 H Eosinophils % 7.4 H Chloride 97 L Carbon Dioxide 33 H - EKG Interpretation by Al EKG shows normal: Sinus rhythm Rate: Tachycardia When compared to previous EKG there are: No significant change Additional EKG results interpreted by me: 01/06/19 11:[address] elevations or depressions, no pathologic T wave inversions Critical Care Note - Critical Care Note Total time excluding time spent on procedures (mins): 37 Discharge - Discharge Clinical Impression: Respiratory distress COPD (chronic obstructive pulmonary disease) Qualifiers: COPD type: COPD with acute exacerbation Qualified Code(s): J44.1 - Chronic obstructive pulmonary disease with (acute) exacerbation Condition: Serious Disposition: ADMITTED INPATIENT Admitting Provider: Leslie (Hospitalist) Unit Admitted: Medical Floor [facility]errals: [facility] [NO LOCAL MD] - Follow up as needed
--- NOTE | 2019-01-06 11:00 | RADIOLOGY REPORT (SQ) ---
EXAM DESCRIPTION: CHEST 2 VIEWS COMPLETED DATE/TIME: 01/06/2019 10:50 am REASON FOR STUDY: cough congestion wheezing copd chest pain COMPARISON: 12/23/2018 EXAM PARAMETERS: NUMBER OF VIEWS: two views TECHNIQUE: Digital Frontal and Lateral radiographic views of the chest acquired. RADIATION DOSE: NA LIMITATIONS: none FINDINGS: LUNGS AND PLEURA: The lungs are mildly hyperexpanded. There is no infiltrate, effusion, o r mass. MEDIASTINUM AND HILAR STRUCTURES: No masses or contour abnormalities. HEART AND VASCULAR STRUCTURES: Heart normal size. No evidence for failure. BONES: No acute findings. HARDWARE: None in the chest. OTHER: No other significant finding. IMPRESSION: Chronic lung changes with no acute cardiopulmonary findings. TECHNICAL DOCUMENTATION: JOB ID: [id number] [employer]- All Rights Reserved Reading location - IP/workstation name: [email or web address]
[2019-01-06 11:03] LABS: APPEARANCE,URINE CLEAR; BILIRUBIN,URINE NEGATIVE (NEGATIVE); COLOR,URINE STRAW; GLUCOSE, URINE NEGATIVE (NEGATIVE); KETONES,URINE NEGATIVE (NEGATIVE); LEUKOCYTE ESTERASE,URINE NEGATIVE (NEGATIVE); NITRITE,URINE NEGATIVE (NEGATIVE); PROTEIN,URINE NEGATIVE (NEGATIVE); URINE SPECIFIC GRAVITY 1.012; UROBILINOGEN,URINE NEGATIVE mg/dL (<2.0)
[2019-01-06 11:19] LABS: ALANINE AMINOTRANSFERASE 23 U/L (21-72); ALBUMIN 4.1 g/dL (3.5-5.0); ALKALINE PHOSPHATASE 57 U/L (38-126); ANION GAP 8 (5-19); ASPARTATE AMINO TRANSFERASE 22 U/L (17-59); BILIRUBIN,DIRECT 0.2 mg/dL (0.0-0.4); BILIRUBIN,TOTAL 0.3 mg/dL (0.2-1.3); BLOOD UREA NITROGEN 13 mg/dL (7-20); CALCIUM 9.4 mg/dL (8.4-10.2); CARBON DIOXIDE 33 mmol/L (22-30); CHLORIDE 97 mmol/L (98-107); GLUCOSE 108 mg/dL (75-110); TOTAL PROTEIN 7.5 g/dL (6.3-8.2)
[2019-01-06 11:21] LABS: URINE AMPHETAMINES SCREEN NEGATIVE; URINE BARBITURATES SCREEN NEGATIVE; URINE BENZODIAZEPINES SCREEN NEGATIVE; URINE COCAINE SCREEN NEGATIVE; URINE MARIJUANA (THC) SCREEN NEGATIVE; URINE METHADONE SCREEN NEGATIVE; URINE PHENCYCLIDINE SCREEN NEGATIVE
[2019-01-06 11:31] LABS: CREATINE KINASE MB 2.56 ng/mL (<4.55)
[2019-01-06 11:32] LABS: TROPONIN I < 0.012 ng/mL
[2019-01-06] MEDS ORDERED: MAGNESIUM SULFATE/D5W 1 GM/100 ML RTUPB IV ONE (11:44)
[2019-01-06] MEDS ORDERED: ALBUTEROL SULFATE 0.083% NEB 2.5 MG/3 ML AMPUL NEB PRN (12:27)
[2019-01-06 12:42] LABS: ARTERIAL BLOOD BASE EXCESS 3.8 mmol/L; ARTERIAL BLOOD FIO2 ROOM AIR; ARTERIAL BLOOD H2CO3 1.67 mmol/L (1.05-1.35); ARTERIAL BLOOD HCO3 30.7 mmol/L (20-24); ARTERIAL BLOOD O2 SATURATION 90.3 % (94-98); ARTERIAL BLOOD PCO2 55.4 mmHg (35-45); ARTERIAL BLOOD PH 7.36 (7.35-7.45); ARTERIAL BLOOD PO2 61.5 mmHg (80-100); ARTERIAL BLOOD TOTAL CO2 32.4 mmol/L (23-27)
--- NOTE | 2019-01-06 13:08 | EKG REPORT ---
SEVERITY:- ABNORMAL ECG - SINUS RHYTHM BIATRIAL ABNORMALITIES LOW VOLTAGE IN FRONTAL LEADS CONSIDER ANTEROSEPTAL INFARCT : Confirmed by: Sabas Flores MD 06-Jan-2019 13:08:02
--- NOTE | 2019-01-06 13:14 | PDOC H&P ---
History of Present Illness Admission Date/PCP: 01/06/19 12:17 LEAH CRESPO MD History of Present Illness: JOSE FERNANDO is a 63 year old black male patient with past medical history of COPD presented with chief complaint of several days history of cough and shortness of breath. Patient reports he has been in usual baseline state of health up until 3 days when he started to have shortness of breath which is worsening progressively and cough productive of whitish sputum. Patient denies any chills fever, chest pain palpitation or diaphoresis. No nausea vomiting abdominal pain or any change in his bowel habit. Patient is noncompliant with his breathing treatment and he also smokes a pack a day. Past Medical History Cardiac Medical History: Reports: Congestive Heart Failure Denies: Coronary Artery Disease Pulmonary Medical History: Reports: Chronic Obstructive Pulmonary Disease (COPD), Tuberculosis - Treatment in 1991 Denies: Respiratory Failure, Sleep Apnea Endocrine Medical History: Denies: Diabetes Mellitus Type 1, Diabetes Mellitus Type 2 Malignancy Medical History: Denies: Breast Cancer, Cervical Cancer, Lung Cancer, Ovarian Cancer GI Medical History: Reports: Gastroesophageal Reflux Disease Psychiatric Medical History: Reports: Depression Past Surgical History Past Surgical History: Denies: Appendectomy, Cholecystectomy, Coronary Artery Bypass Graft, Gastric Bypass Surgery, Herniorrhaphy, Pacemaker, Tonsillectomy Social History Smoking Status: Current Every Day Smoker Frequency of Alcohol Use: Occasional Hx Recreational Drug Use: Yes Drugs: Cocaine Hx Prescription Drug Abuse: No - Advance Directive Resuscitation Status: Full Code Family History Family History: CAD, COPD, Reviewed & Not Pertinent Parental Family History Reviewed: Yes Children Family History Reviewed: Yes Sibling(s) Family History Reviewed.: Yes Medication/Allergy Home Medications: Budesonide/Formoterol Fumarate [Symbicort HFA 160-4.5 mcg Inhaler 6 gm] 2 puff PO BID 09/18/16 Terazosin HCl [Hytrin] 10 mg PO BID 09/18/16 Albuterol Sulfate [Ventolin 0.083% Neb 2.5 mg/3 mL Ampul] 2.5 mg NEB DLF4GFR #30 vial.neb 09/20/16 Albuterol Sulfate [Ventolin Hfa] 1 - 2 puff IH Q4 PRN #1 hfa.aer.ad 09/20/16 Citalopram Hydrobromide [Celexa 10 mg Tablet] 10 mg PO DAILY #30 tablet 09/20/16 Levofloxacin [Levaquin 750 mg Tablet] 750 mg PO DAILY #4 tablet 09/20/16 Prednisone [Deltasone 10 mg Tablet] 10 mg PO ASDIR PRN #21 tablet 09/20/16 Bupropion HCl [Wellbutrin Sr 150 mg Tablet] 150 mg PO BID 09/23/17 Terazosin HCl [Hytrin] 10 mg PO DAILY 09/23/17 Azithromycin [Zithromax] 500 mg PO DAILY #14 tablet 09/27/17 Cefpodoxime Proxetil [Vantin 200 mg Tablet] 1 tab PO Q12 #14 tab 09/27/17 Prednisone 20 mg PO ASDIR #30 tablet 09/27/17 Doxycycline Hyclate 100 mg PO BID #14 capsule 04/24/18 Prednisone [Deltasone 20 mg Tablet] 3 tab PO DAILY 3 Days tablet 04/24/18 Doxycycline Hyclate 100 mg PO BID #20 capsule 10/28/18 Prednisone [Deltasone 20 mg Tablet] 3 tab PO DAILY 3 Days #9 tablet 10/28/18 Doxycycline Hyclate 100 mg PO BID #14 tablet. 12/23/18 Prednisone [Deltasone 10 mg Tablet] 10 mg PO ASDIR PRN #21 tablet 12/23/18 Allergies/Adverse Reactions: iodine [Iodine] Allergy (Verified 01/06/19 10:43) Shellfish * [Shellfish] Allergy (Verified 01/06/19 10:43) shellfish derived Allergy (Verified 01/06/19 10:43) Review of Systems Constitutional: ABSENT: chills, fever(s), headache(s), weight gain, weight loss Eyes: ABSENT: visual disturbances Ears: ABSENT: hearing changes Cardiovascular: ABSENT: chest pain, dyspnea on exertion, edema, orthropnea, palpitations Respiratory: PRESENT: cough, dyspnea Gastrointestinal: ABSENT: abdominal pain, constipation, diarrhea, hematemesis, hematochezia, nausea, vomiting Genitourinary: ABSENT: dysuria, hematuria Musculoskeletal: ABSENT: joint swelling Integumentary: ABSENT: rash, wounds Neurological: ABSENT: abnormal gait, abnormal speech, confusion, dizziness, focal weakness, syncope Psychiatric: ABSENT: anxiety, depression, homidical ideation, suicidal ideation Endocrine: ABSENT: cold intolerance, heat intolerance, polydipsia, polyuria Hematologic/Lymphatic: ABSENT: easy bleeding, easy bruising Physical Exam Vital Signs: Temp Pulse Resp BP Pulse Ox 97.6 F 82 19 117/87 H 94 01/06/19 12:01 01/06/19 09:40 01/06/19 12:01 01/06/19 12:00 01/06/19 12:01 Intake & Output 01/05/19 01/06/19 01/07/19 06:59 06:59 06:59 Weight 74.843 kg General appearance: PRESENT: no acute distress, well-developed, well-nourished Head exam: PRESENT: atraumatic, normocephalic Eye exam: PRESENT: conjunctiva pink, EOMI, PERRLA. ABSENT: scleral icterus Ear exam: PRESENT: normal external ear exam Mouth exam: PRESENT: moist, tongue midline Neck exam: ABSENT: carotid bruit, JVD, lymphadenopathy, thyromegaly Respiratory exam: PRESENT: decreased breath sounds, rhonchi, wheezes. ABSENT: rales Cardiovascular exam: PRESENT: RRR. ABSENT: diastolic murmur, rubs, systolic murmur Pulses: PRESENT: normal dorsalis pedis pul Vascular exam: PRESENT: normal capillary refill GI/Abdominal exam: PRESENT: normal bowel sounds, soft. ABSENT: distended, guarding, mass, organolmegaly, rebound, tenderness Rectal exam: PRESENT: deferred Extremities exam: PRESENT: full ROM. ABSENT: calf tenderness, clubbing, pedal edema Neurological exam: PRESENT: alert, awake, oriented to person, oriented to place, oriented to time, oriented to situation, CN II-XII grossly intact. ABSENT: motor sensory deficit Psychiatric exam: PRESENT: appropriate affect, normal mood. ABSENT: homicidal ideation, suicidal ideation Skin exam: PRESENT: dry, intact, warm. ABSENT: cyanosis, rash Results Laboratory Results: 01/06/19 10:37 01/06/19 10:37 01/06/19 01/06/19 01/06/19 10:30 10:37 10:37 WBC 4.3 RBC 4.96 Hgb 15.3 Hct 46.3 MCV 93 MCH 30.8 MCHC 33.0 RDW 14.1 H Plt Count 192 Seg Neutrophils % 48.8 Lymphocytes % 34.2 Monocytes % 8.9 Eosinophils % 7.4 H Basophils % 0.7 Absolute Neutrophils 2.1 Absolute Lymphocytes 1.5 Absolute Monocytes 0.4 Absolute Eosinophils 0.3 Absolute Basophils 0.0 Carbonic Acid HCO3/H2CO3 Ratio ABG pH ABG pCO2 ABG pO2 ABG HCO3 ABG O2 Saturation ABG Base Excess FiO2 Sodium 138.0 Potassium 5.0 Chloride 97 L Carbon Dioxide 33 H Anion Gap 8 BUN 13 Creatinine 0.77 Est GFR ( Amer) > 60 Est GFR (Non-Af Amer) > 60 Glucose 108 Calcium 9.4 Total Bilirubin 0.3 AST 22 ALT 23 Alkaline Phosphatase 57 Total Protein 7.5 Albumin 4.1 Urine Color STRAW Urine Appearance CLEAR Urine pH 7.0 Ur Specific [place] 1.012 Urine Protein NEGATIVE Urine Glucose (UA) NEGATIVE Urine Ketones NEGATIVE Urine Blood NEGATIVE Urine Nitrite NEGATIVE Ur Leukocyte Esterase NEGATIVE Urine WBC (Auto) 0 Urine RBC (Auto) 0 01/06/19 12:30 WBC RBC Hgb Hct MCV MCH MCHC RDW Plt Count Seg Neutrophils % Lymphocytes % Monocytes % Eosinophils % Basophils % Absolute Neutrophils Absolute Lymphocytes Absolute Monocytes Absolute Eosinophils Absolute Basophils Carbonic Acid 1.67 H HCO3/H2CO3 Ratio 18:1 ABG pH 7.36 ABG pCO2 55.4 H ABG pO2 61.5 L ABG HCO3 30.7 H ABG O2 Saturation 90.3 L ABG Base Excess 3.8 FiO2 ROOM AIR Sodium Potassium Chloride Carbon Dioxide Anion Gap BUN Creatinine Est GFR ( Amer) Est GFR (Non-Af Amer) Glucose Calcium Total Bilirubin AST ALT Alkaline Phosphatase Total Protein Albumin Urine Color Urine Appearance Urine pH Ur Specific [place] Urine Protein Urine Glucose (UA) Urine Ketones Urine Blood Urine Nitrite Ur Leukocyte Esterase Urine WBC (Auto) Urine RBC (Auto) 01/06/19 10:37 CK-MB (CK-2) 2.56 Troponin I < 0.012 Impressions: Chest X-Ray 01/06/19 10:21 IMPRESSION: Chronic lung changes with no acute cardiopulmonary findings. Assessment and Plan - Diagnosis (1) COPD exacerbation Is this a current diagnosis for this admission?: Yes Plan: Patient has been started on bronchodilators, supplemental oxygen, Spiriva and Solu-Medrol. (2) Tobacco dependence Is this a current diagnosis for this admission?: Yes Plan: Counseled and encouraged to quit smoking. In the meantime he will be on nicotine patch.
[2019-01-06] MEDS ORDERED: NICOTINE 21 MG/24 HR PATCH.TD24 TD ONE (14:15)
[2019-01-06] MEDS: ENOXAPARIN SODIUM INJ 40 MG/0.4 ML DISP.SYRIN SUBCUT SCH (14:59)
[2019-01-06] MEDS: IPRATROPIUM/ALBUTEROL 0.5-2.5 MG/3 ML AMPUL NEB SCH ×3 (15:58→23:54)
[2019-01-06] MEDS: TIOTROPIUM BROMIDE DPI 5 CAP/KIT (18 MCG/CAP) IH SCH (16:44)
[2019-01-06] MEDS: METHYLPREDNISOLONE INJ 125 MG/2 ML SDV IV SCH (17:14)
[2019-01-07] MEDS: METHYLPREDNISOLONE INJ 125 MG/2 ML SDV IV SCH ×5 (02:00→23:45)
[2019-01-07] MEDS: IPRATROPIUM/ALBUTEROL 0.5-2.5 MG/3 ML AMPUL NEB SCH ×5 (04:16→22:38)
[2019-01-07] MEDS: NICOTINE 21 MG/24 HR PATCH.TD24 TD SCH (10:40)
[2019-01-07] MEDS: ENOXAPARIN SODIUM INJ 40 MG/0.4 ML DISP.SYRIN SUBCUT SCH (10:40)
[2019-01-07] MEDS: TIOTROPIUM BROMIDE DPI 5 CAP/KIT (18 MCG/CAP) IH SCH (10:41)
[2019-01-07] MEDS ORDERED: DOXAZOSIN MESYLATE 4 MG TABLET PO ONE ×2 (11:00→22:00)
--- NOTE | 2019-01-07 17:01 | PDOC PROGRESS REPORT ---
Subjective Progress Note for:: 01/07/19 Subjective:: Patient still quite wheezy. He does admit that he is feeling slightly better than admission. Reason For Visit: COPD EXACERBATION Physical Exam Vital Signs: Temp Pulse Resp BP Pulse Ox 97.1 F 96 20 132/87 H 92 01/07/19 13:00 01/07/19 13:00 01/07/19 13:00 01/07/19 13:00 01/07/19 13:00 Intake & Output 01/06/19 01/07/19 01/08/19 06:59 06:59 06:59 Intake Total 837 620 Output Total 900 600 Balance -63 20 Weight 70.4 kg General appearance: PRESENT: no acute distress, cooperative, thin, well- developed Head exam: PRESENT: atraumatic, normocephalic Ear exam: PRESENT: normal external ear exam Mouth exam: PRESENT: moist, tongue midline Respiratory exam: PRESENT: symmetrical, unlabored, wheezes - Bilaterally. ABSENT: accessory muscle use, rales, rhonchi, tachypnea Cardiovascular exam: PRESENT: RRR, +S1, +S2 GI/Abdominal exam: PRESENT: normal bowel sounds, soft. ABSENT: distended, tenderness Extremities exam: ABSENT: pedal edema Musculoskeletal exam: PRESENT: ambulatory, normal inspection Neurological exam: PRESENT: alert, awake, oriented to person, oriented to place, oriented to time, oriented to situation, CN II-XII grossly intact. ABSENT: motor sensory deficit Psychiatric exam: PRESENT: appropriate affect, normal mood. ABSENT: agitated, anxious Focused psych exam: ABSENT: delusional, restlessness Results Laboratory Results: 01/06/19 10:37 01/06/19 10:37 01/06/19 10:37 CK-MB (CK-2) 2.56 Troponin I < 0.012 Impressions: Chest X-Ray 01/06/19 10:21 IMPRESSION: Chronic lung changes with no acute cardiopulmonary findings. Assessment and Plan - Diagnosis (1) COPD exacerbation Is this a current diagnosis for this admission?: Yes Plan: Patient has been started on bronchodilators, supplemental oxygen, Spiriva and Solu-Medrol. 01/07/2019-the patient still feels poorly. He is still wheezy. I explained that he should not try to reach an oxygen saturation in the high 90s. Perfect range for him would be 90-92. He also admits that he used an inhaler that he had in his pocket (Dulera) earlier today. I encouraged him not to use additional inhalers. He is on an aggressive regimen of DuoNeb's and' I have started bud esonide. He is also on steroids systemically. I explained that he should be transitioned to a combination inhaler with Spiriva to achieve steady state to as an outpatient. He should also see pulmonology. His formulary is somewhat limited as [facility] (2) Tobacco dependence Is this a current diagnosis for this admission?: Yes Plan: Counseled and encouraged to quit smoking. In the meantime he will be on nicotine patch. 01/07/2019-we reviewed his smoking as it directly relates to his poor health. He states that it helps with his anxiety. He might do better with a low-dose SSRI medication such as sertraline. We can discuss further tomorrow. (3) BPH (benign prostatic hyperplasia) Qualifiers: Lower urinary tract symptom presence: symptoms present Is this a current diagnosis for this admission?: Yes Plan: 01/07/2019-he reports that terazosin 10 mg nightly is very effective. He has tried multiple other medications without relief. He does not remember Flomax or tamsulosin as being something that he is tried. If the terazosin is working we will continue the same medication. - Time Time Spent with patient: 15-24 minutes Smoking Cessation Education: 3 to 10 minutes Medications reviewed and adjusted accordingly: Yes Anticipated discharge: Home
[2019-01-07] MEDS: FAMOTIDINE 20 MG TABLET PO SCH (20:48)
[2019-01-07] MEDS: BUDESONIDE NEB 0.5 MG/2 ML AMPUL NEB SCH (22:38)
[2019-01-07] MEDS ORDERED: MAG HYDROX/AL HYDROX/SIMETH SUSP 30 ML UDCUP PO ONE (23:45)
[2019-01-08] MEDS: IPRATROPIUM/ALBUTEROL 0.5-2.5 MG/3 ML AMPUL NEB SCH ×6 (00:31→19:54)
[2019-01-08] MEDS: METHYLPREDNISOLONE INJ 125 MG/2 ML SDV IV SCH ×4 (05:47→23:28)
[2019-01-08] MEDS: BUDESONIDE NEB 0.5 MG/2 ML AMPUL NEB SCH ×2 (07:55→19:54)
[2019-01-08] MEDS: ENOXAPARIN SODIUM INJ 40 MG/0.4 ML DISP.SYRIN SUBCUT SCH (09:56)
[2019-01-08] MEDS: NICOTINE 21 MG/24 HR PATCH.TD24 TD SCH (09:56)
[2019-01-08] MEDS: TIOTROPIUM BROMIDE DPI 5 CAP/KIT (18 MCG/CAP) IH SCH (09:57)
[2019-01-08] MEDS: FAMOTIDINE 20 MG TABLET PO SCH ×2 (09:57→17:47)
--- NOTE | 2019-01-08 12:16 | PDOC PROGRESS REPORT ---
Subjective Progress Note for:: 01/08/19 Subjective:: JOSE FERNANDO is a 63 year old black male patient with past medical history of COPD presented with chief complaint of several days history of cough and shortness of breath. Patient reports he has been in usual baseline state of health up until 3 days when he started to have shortness of breath which is worsening progressively and cough productive of whitish sputum. Patient denies any chills fever, chest pain palpitation or diaphoresis. No nausea vomiting abdominal pain or any change in his bowel habit. Patient is noncompliant with his breathing treatment and he also smokes a pack a day. 01/08/2019. No acute events overnight. On my encounter patient is comfortably sitting in his chair in no apparent distress, negative fever, chills, nausea, vomiting, diarrhea, constipation or any urinary symptoms. Patient could be discharged home however he still has wheezing and requires 3 L of oxygen. SBP 683775, pulse 90s RR 16, SPO2 91 to 94% 3 L NC. Reason For Visit: COPD EXACERBATION Physical Exam Vital Signs: Temp Pulse Resp BP Pulse Ox 97.7 F 90 16 117/76 91 L 01/08/19 00:00 01/08/19 11:46 01/08/19 11:46 01/08/19 00:00 01/08/19 11:46 Intake & Output 01/07/19 01/08/19 01/09/19 06:59 06:59 06:59 Intake Total 837 965 Output Total 900 1000 Balance -63 -35 Weight 70.4 kg 71.2 kg General appearance: PRESENT: no acute distress, well-developed, well-nourished Head exam: PRESENT: atraumatic, normocephalic Neck exam: ABSENT: carotid bruit, JVD, lymphadenopathy, thyromegaly Respiratory exam: PRESENT: decreased breath sounds, wheezes. ABSENT: rales, rhonchi Cardiovascular exam: PRESENT: RRR. ABSENT: diastolic murmur, rubs, systolic murmur GI/Abdominal exam: PRESENT: normal bowel sounds, soft. ABSENT: distended, guarding, mass, organolmegaly, rebound, tenderness Extremities exam: PRESENT: full ROM. ABSENT: calf tenderness, clubbing, pedal edema Neurological exam: PRESENT: alert, altered, awake, oriented to person Results Laboratory Results: 01/06/19 10:37 01/06/19 10:37 01/06/19 10:37 CK-MB (CK-2) 2.56 Troponin I < 0.012 Impressions: Chest X-Ray 01/06/19 10:21 IMPRESSION: Chronic lung changes with no acute cardiopulmonary findings. Assessment and Plan - Diagnosis (1) COPD exacerbation Is this a current diagnosis for this admission?: Yes Plan: Mild improvement. Still wheezing on respiratory examination. SPO2 91 to 94% on 3 L nasal cannula. Not on home oxygen. 01/08/2019: SBP 799852, pulse 90s RR 16, SPO2 91 to 94% 3 L NC. Continue supplemental oxygen, DuoNeb, Spiriva, IV steroids, PRN BiPAP. (2) Tobacco dependence Is this a current diagnosis for this admission?: Yes Plan: Counseled and encouraged to quit smoking. In the meantime he will be on nicotine patch. (3) BPH (benign prostatic hyperplasia) Qualifiers: Lower urinary tract symptom presence: symptoms present Is this a current diagnosis for this admission?: Yes Plan: Patient reporting good response with doxazosin. Continue current regimen.
[2019-01-08] MEDS ORDERED: BISACODYL 5 MG TABEC PO PRN (12:17)
[2019-01-08] MEDS ORDERED: DOXAZOSIN MESYLATE 4 MG TABLET PO ONE (16:30)
[2019-01-08] MEDS: NYSTATIN 500000 UNIT/5 ML UDCUP PO SCH ×2 (17:47→23:29)
[2019-01-08] MEDS: DOCUSATE SODIUM 100 MG CAPSULE PO SCH (17:47)
[2019-01-08] MEDS ORDERED: DOXAZOSIN MESYLATE 4 MG TABLET PO SCH (22:00)
[2019-01-08] MEDS ORDERED: TAMSULOSIN HCL 0.4 MG CAP.SR.24H PO ONE (22:00)
[2019-01-09] MEDS: IPRATROPIUM/ALBUTEROL 0.5-2.5 MG/3 ML AMPUL NEB SCH ×6 (00:05→19:36)
[2019-01-09] MEDS: NYSTATIN 500000 UNIT/5 ML UDCUP PO SCH ×4 (05:40→23:45)
[2019-01-09] MEDS: METHYLPREDNISOLONE INJ 125 MG/2 ML SDV IV SCH ×4 (05:40→23:44)
[2019-01-09 06:58] LABS: ABSOLUTE LYMPHOCYTES (AUTO) 0.6 10^3/uL (0.5-4.7); ABSOLUTE MONOCYTES (AUTO) 0.3 10^3/uL (0.1-1.4); ABSOLUTE NEUT (AUTO) 7.3 10^3/uL (1.7-8.2); BASOPHILS % (AUTO) 0.1 % (0-2); HEMATOCRIT 41.9 % (37.9-51.0); LYMPHOCYTES % (AUTO) 7.8 % (13-45); MEAN CORPUSCULAR HEMOGLOBIN 30.9 pg (27.0-33.4); MEAN CORPUSCULAR HGB CONC 33.3 g/dL (32.0-36.0); MEAN CORPUSCULAR VOLUME 93 fl (80-97); PLATELET COUNT 165 10^3/uL (150-450); RED BLOOD COUNT 4.52 10^6/uL (4.35-5.55); RED CELL DISTRIBUTION WIDTH 14.3 % (11.5-14.0); SEGMENTED NEUTROPHILS % (AUTO) 88.1 % (42-78); TOTAL CELLS COUNTED % (AUTO) 100 %; WHITE BLOOD COUNT 8.2 10^3/uL (4.0-10.5)
[2019-01-09 07:13] LABS: ALANINE AMINOTRANSFERASE 29 U/L (21-72); ALKALINE PHOSPHATASE 50 U/L (38-126); ANION GAP 9 (5-19); ASPARTATE AMINO TRANSFERASE 20 U/L (17-59); BILIRUBIN,DIRECT 0.2 mg/dL (0.0-0.4); BILIRUBIN,TOTAL 0.3 mg/dL (0.2-1.3); BLOOD UREA NITROGEN 26 mg/dL (7-20); CALCIUM 9.8 mg/dL (8.4-10.2); CARBON DIOXIDE 28 mmol/L (22-30); CHLORIDE 98 mmol/L (98-107); GLUCOSE 122 mg/dL (75-110); POTASSIUM 4.8 mmol/L (3.6-5.0); SODIUM 134.9 mmol/L (137-145)
[2019-01-09] MEDS: BUDESONIDE NEB 0.5 MG/2 ML AMPUL NEB SCH (07:33)
[2019-01-09] MEDS: NICOTINE 21 MG/24 HR PATCH.TD24 TD SCH (09:21)
[2019-01-09] MEDS: FAMOTIDINE 20 MG TABLET PO SCH ×2 (09:21→18:41)
[2019-01-09] MEDS: DOCUSATE SODIUM 100 MG CAPSULE PO SCH ×2 (09:21→18:41)
[2019-01-09] MEDS: ENOXAPARIN SODIUM INJ 40 MG/0.4 ML DISP.SYRIN SUBCUT SCH (09:21)
[2019-01-09] MEDS: TIOTROPIUM BROMIDE DPI 5 CAP/KIT (18 MCG/CAP) IH SCH (09:22)
--- NOTE | 2019-01-09 11:16 | PDOC PROGRESS REPORT ---
Subjective Progress Note for:: 01/09/19 Subjective:: JOSE FERNANDO is a 63 year old black male patient with past medical history of COPD presented with chief complaint of several days history of cough and shortness of breath. Patient reports he has been in usual baseline state of health up until 3 days when he started to have shortness of breath which is worsening progressively and cough productive of whitish sputum. Patient denies any chills fever, chest pain palpitation or diaphoresis. No nausea vomiting abdominal pain or any change in his bowel habit. Patient is noncompliant with his breathing treatment and he also smokes a pack a day. 01/08/2019. No acute events overnight. On my encounter patient is comfortably sitting in his chair in no apparent distress, negative fever, chills, nausea, vomiting, diarrhea, constipation or any urinary symptoms. Patient could be discharged home however he still has wheezing and requires 3 L of oxygen. SBP 770106, pulse 90s RR 16, SPO2 91 to 94% 3 L NC. 01/09/2019. No acute events overnight, patient has been refusing his Pulmicort and tiotropium, he wants his Symbicort which unfortunately we do not carry, stating that he has been having hesitancy, urgency, he is on doxazosin, unfortunately his home but is still results in which we do not carry, otherwise he is eating fine, on my examination comfortably sitting in chair with no supplemental oxygen, denying any fever, chills, nausea, vomiting, diarrhea, constipation or any urinary symptoms. SBP 636113, T-max 98.2, [place] [address], SPO2 9093 on RA. WBC 8.2, hemoglobin 14.0, platelets 165, sodium 134, potassium 4.8, bicarb 28, [employer] 0.9. On physical examination he still has generalized wheezing, and SPO2 is 9893 room air. Reason For Visit: COPD EXACERBATION Physical Exam Vital Signs: Temp Pulse Resp BP Pulse Ox 98.2 F 104 H 18 139/85 H 93 01/09/19 07:31 01/09/19 07:31 01/09/19 07:31 01/09/19 07:31 01/09/19 07:31 Intake & Output 01/08/19 01/09/19 01/10/19 06:59 06:59 06:59 Intake Total 965 1370 Output Total 1000 1250 Balance -35 120 Weight 71.2 kg 72.2 kg General appearance: PRESENT: no acute distress, well-developed, well-nourished Head exam: PRESENT: atraumatic, normocephalic Eye exam: PRESENT: conjunctiva pink, EOMI, PERRLA. ABSENT: scleral icterus Ear exam: PRESENT: normal external ear exam Mouth exam: PRESENT: moist, tongue midline Neck exam: ABSENT: carotid bruit, JVD, lymphadenopathy, thyromegaly Respiratory exam: PRESENT: decreased breath sounds, wheezes. ABSENT: rales, rhonchi Cardiovascular exam: PRESENT: RRR. ABSENT: diastolic murmur, rubs, systolic murmur Pulses: PRESENT: normal dorsalis pedis pul Vascular exam: PRESENT: normal capillary refill GI/Abdominal exam: PRESENT: normal bowel sounds, soft. ABSENT: distended, guarding, mass, organolmegaly, rebound, tenderness Rectal exam: PRESENT: deferred Extremities exam: PRESENT: full ROM. ABSENT: calf tenderness, clubbing, pedal edema Neurological exam: PRESENT: alert, awake, oriented to person, oriented to place, oriented to time, oriented to situation, CN II-XII grossly intact. ABSENT: motor sensory deficit Psychiatric exam: PRESENT: appropriate affect, normal mood. ABSENT: homicidal ideation, suicidal ideation Skin exam: PRESENT: dry, intact, warm. ABSENT: cyanosis, rash Results Laboratory Results: 01/09/19 06:01 01/09/19 06:01 01/09/19 01/09/19 06:01 06:01 WBC 8.2 RBC 4.52 Hgb 14.0 Hct 41.9 MCV 93 MCH 30.9 MCHC 33.3 RDW 14.3 H Plt Count 165 Seg Neutrophils % 88.1 H Lymphocytes % 7.8 L Monocytes % 4.0 Eosinophils % 0.0 Basophils % 0.1 Absolute Neutrophils 7.3 Absolute Lymphocytes 0.6 Absolute Monocytes 0.3 Absolute Eosinophils 0.0 Absolute Basophils 0.0 Sodium 134.9 L Potassium 4.8 Chloride 98 Carbon Dioxide 28 Anion Gap 9 BUN 26 H Creatinine 0.90 Est GFR ( Amer) > 60 Est GFR (Non-Af Amer) > 60 Glucose 122 H Calcium 9.8 Total Bilirubin 0.3 AST 20 ALT 29 Alkaline Phosphatase 50 Total Protein 7.0 Albumin 4.0 01/06/19 10:37 CK-MB (CK-2) 2.56 Troponin I < 0.012 Impressions: Chest X-Ray 01/06/19 10:21 IMPRESSION: Chronic lung changes with no acute cardiopulmonary findings. Assessment and Plan - Diagnosis (1) COPD exacerbation Is this a current diagnosis for this admission?: Yes Plan: Mild improvement. Still wheezing on respiratory examination. Not on home oxygen. SPO2 9093 RA. Will ambulate and see if he needs oxygen. Also sent home on home O2. And is refusing his tiotropium and Pulmicort and wants his home meds which is Symbicort but unfortunately due to the Claritin in the hospital. We will switch to budesonide and albuterol. 01/09/2019: SBP 381848, T-max 98.2, [place] 38344, SPO2 9093 on RA. 01/08/2019: SBP 094851, pulse 90s RR 16, SPO2 91 to 94% 3 L NC. Continue supplemental oxygen, DuoNeb, Symbicort, salmeterol, IV steroids, PRN BiPAP. (2) Tobacco dependence Is this a current diagnosis for this admission?: Yes Plan: Counseled and encouraged to quit smoking. In the meantime he will be on nicotine patch. (3) BPH (benign prostatic hyperplasia) Qualifiers: Lower urinary tract symptom presence: symptoms present Is this a current diagnosis for this admission?: Yes Plan: Patient is reporting poor response on doxazosin. Taking terazosin at home which unfortunately do not carry in the hospital.
[2019-01-09] MEDS: GUAIFENESIN 600 MG TABLET.SA PO SCH ×2 (13:50→21:05)
[2019-01-09] MEDS: BUDESONIDE NEB 0.25 MG/2 ML AMPUL NEB SCH (19:36)
[2019-01-09] MEDS: SALMETEROL XINAFOATE DISKUS 50 MCG/1 DOSE 28 DOSE IH SCH (21:03)
[2019-01-09] MEDS: DOXAZOSIN MESYLATE 4 MG TABLET PO SCH (21:05)
[2019-01-10] MEDS: IPRATROPIUM/ALBUTEROL 0.5-2.5 MG/3 ML AMPUL NEB SCH ×3 (00:14→08:45)
[2019-01-10] MEDS ORDERED: HALOPERIDOL 5 MG TABLET PO ONE (01:15)
[2019-01-10] MEDS: METHYLPREDNISOLONE INJ 125 MG/2 ML SDV IV SCH ×4 (06:17→23:34)
[2019-01-10] MEDS: NYSTATIN 500000 UNIT/5 ML UDCUP PO SCH ×4 (06:17→23:34)
[2019-01-10] MEDS: BUDESONIDE NEB 0.25 MG/2 ML AMPUL NEB SCH ×2 (08:45→19:48)
[2019-01-10] MEDS: SALMETEROL XINAFOATE DISKUS 50 MCG/1 DOSE 28 DOSE IH SCH ×2 (09:24→21:24)
[2019-01-10] MEDS: ENOXAPARIN SODIUM INJ 40 MG/0.4 ML DISP.SYRIN SUBCUT SCH (09:26)
[2019-01-10] MEDS: GUAIFENESIN 600 MG TABLET.SA PO SCH ×2 (09:27→21:23)
[2019-01-10] MEDS: FAMOTIDINE 20 MG TABLET PO SCH ×2 (09:27→17:09)
[2019-01-10] MEDS: NICOTINE 21 MG/24 HR PATCH.TD24 TD SCH (09:27)
[2019-01-10] MEDS: DOCUSATE SODIUM 100 MG CAPSULE PO SCH ×2 (09:27→17:10)
[2019-01-10] MEDS ORDERED: LEVALBUTEROL HCL NEB 0.63 MG/3 ML AMPUL NEB PRN (09:39)
[2019-01-10] MEDS ORDERED: LORAZEPAM 0.5 MG TABLET PO PRN (09:41)
[2019-01-10] MEDS: BUSPIRONE HCL 10 MG TABLET PO SCH ×2 (10:37→21:23)
[2019-01-10] MEDS: LEVALBUTEROL HCL NEB 0.63 MG/3 ML AMPUL NEB SCH ×4 (12:17→23:37)
--- NOTE | 2019-01-10 16:46 | PDOC PROGRESS REPORT ---
Subjective Progress Note for:: 01/10/19 Subjective:: JOSE FERNANDO is a 63 year old black male patient with past medical history of COPD presented with chief complaint of several days history of cough and shortness of breath. Patient reports he has been in usual baseline state of health up until 3 days when he started to have shortness of breath which is worsening progressively and cough productive of whitish sputum. Patient denies any chills fever, chest pain palpitation or diaphoresis. No nausea vomiting abdominal pain or any change in his bowel habit. Patient is noncompliant with his breathing treatment and he also smokes a pack a day. 01/08/2019. No acute events overnight. On my encounter patient is comfortably sitting in his chair in no apparent distress, negative fever, chills, nausea, vomiting, diarrhea, constipation or any urinary symptoms. Patient could be discharged home however he still has wheezing and requires 3 L of oxygen. SBP 573091, pulse 90s RR 16, SPO2 91 to 94% 3 L NC. 01/09/2019. No acute events overnight, patient has been refusing his Pulmicort and tiotropium, he wants his Symbicort which unfortunately we do not carry, stating that he has been having hesitancy, urgency, he is on doxazosin, unfortunately his home but is still results in which we do not carry, otherwise he is eating fine, on my examination comfortably sitting in chair with no supplemental oxygen, denying any fever, chills, nausea, vomiting, diarrhea, constipation or any urinary symptoms. SBP 424479, T-max 98.2, [place] 84005, SPO2 9093 on RA. WBC 8.2, hemoglobin 14.0, platelets 165, sodium 134, potassium 4.8, bicarb 28, Green Hide Inspector 0.9. On physical examination he still has generalized wheezing, and SPO2 is 9893 room air. 01/10/2019. No acute events overnight, patient is complaining of dyspnea on e xertion however does not wear his oxygen and refuses to use other inhalers except for his on Symbicort, stating they do not they do not work. Using oxygen stating he does not need oxygen. When patient tries to exerts himself he gets short of breath and becomes very anxious which contributes to his worsening shortness of breath. SBP 680992,T-max 98.0, pulse 881 03, RR 1820, SPO2 9195 2 L NS. Reason For Visit: COPD EXACERBATION Physical Exam Vital Signs: Temp Pulse Resp BP Pulse Ox 98.0 F 103 H 18 126/75 H 95 01/10/19 15:16 01/10/19 15:43 01/10/19 15:43 01/10/19 15:16 01/10/19 15:43 Intake & Output 01/09/19 01/10/19 01/11/19 06:59 06:59 06:59 Intake Total 1370 820 Output Total 1250 1000 Balance 120 -180 Weight 72.2 kg 71.2 kg General appearance: PRESENT: mild distress Head exam: PRESENT: atraumatic, normocephalic Neck exam: ABSENT: carotid bruit, JVD, lymphadenopathy, thyromegaly Respiratory exam: PRESENT: clear to auscultation kyree, wheezes Cardiovascular exam: PRESENT: RRR, systolic murmur, tachycardia. ABSENT: navarrete tolic murmur, rubs GI/Abdominal exam: PRESENT: normal bowel sounds, soft. ABSENT: distended, guarding, mass, organolmegaly, rebound, tenderness Extremities exam: PRESENT: full ROM. ABSENT: calf tenderness, clubbing, pedal edema Neurological exam: PRESENT: alert, awake, oriented to person, oriented to place, oriented to time, oriented to situation, CN II-XII grossly intact. ABSENT: motor sensory deficit Psychiatric exam: PRESENT: anxious Results Laboratory Results: 01/09/19 06:01 01/09/19 06:01 01/06/19 10:37 CK-MB (CK-2) 2.56 Troponin I < 0.012 Impressions: Chest X-Ray 01/06/19 10:21 IMPRESSION: Chronic lung changes with no acute cardiopulmonary findings. Assessment and Plan - Diagnosis (1) COPD exacerbation Is this a current diagnosis for this admission?: Yes Plan: Mild improvement. Still wheezing on respiratory examination. Not on home oxygen. SPO2 9093 RA. Patient is somewhat difficult, refusing use oxygen, or tiotropium and Pulmicort stating they do not work. Prefers his home Symbicort. Unfortunately we do not carry Symbicort in the hospital. Since ambulates without oxygen, gets short of breath which makes him anxious which exacerbates his COPD. We will switch to budesonide and albuterol. Was advised to wear his oxygen. Start on Ativan as needed and BuSpar scheduled. 01/10/2019: SBP 126196,T-max 98.0, pulse 881 03, RR 1820, SPO2 9195 2 L NS. 01/09/2019: SBP 825839, T-max 98.2, HR 65887, SPO2 9093 on RA. 01/08/2019: SBP 581521, pulse 90s RR 16, SPO2 91 to 94% 3 L NC. Continue supplemental oxygen, DuoNeb, Symbicort, salmeterol, IV steroids, PRN BiPAP. (2) Tobacco dependence Is this a current diagnosis for this admission?: Yes Plan: Counseled and encouraged to quit smoking. In the meantime he will be on nicotine patch. (3) BPH (benign prostatic hyperplasia) Qualifiers: Lower urinary tract symptom presence: symptoms present Is this a current diagnosis for this admission?: Yes Plan: Patient is reporting poor response on doxazosin. Taking terazosin at home which unfortunately do not carry in the hospital. (4) Anxiety Is this a current diagnosis for this admission?: No Plan: BuSpar 5 mg p.o. twice daily. Ativan as needed.
[2019-01-10] MEDS: DOXAZOSIN MESYLATE 4 MG TABLET PO SCH (21:23)
[2019-01-11] MEDS: LEVALBUTEROL HCL NEB 0.63 MG/3 ML AMPUL NEB SCH ×6 (03:46→23:56)
[2019-01-11 04:57] LABS: ABSOLUTE LYMPHOCYTES (AUTO) 0.5 10^3/uL (0.5-4.7); ABSOLUTE MONOCYTES (AUTO) 0.3 10^3/uL (0.1-1.4); ABSOLUTE NEUT (AUTO) 5.5 10^3/uL (1.7-8.2); BASOPHILS % (AUTO) 0.1 % (0-2); HEMATOCRIT 40.7 % (37.9-51.0); HEMOGLOBIN 13.6 g/dL (13.5-17.0); LYMPHOCYTES % (AUTO) 7.8 % (13-45); MEAN CORPUSCULAR HEMOGLOBIN 30.9 pg (27.0-33.4); MEAN CORPUSCULAR HGB CONC 33.3 g/dL (32.0-36.0); MEAN CORPUSCULAR VOLUME 93 fl (80-97); MONOCYTES % (AUTO) 5.4 % (3-13); PLATELET COUNT 161 10^3/uL (150-450); RED BLOOD COUNT 4.38 10^6/uL (4.35-5.55); RED CELL DISTRIBUTION WIDTH 13.7 % (11.5-14.0); SEGMENTED NEUTROPHILS % (AUTO) 86.7 % (42-78); TOTAL CELLS COUNTED % (AUTO) 100 %; WHITE BLOOD COUNT 6.4 10^3/uL (4.0-10.5)
[2019-01-11 05:15] LABS: ANION GAP 8 (5-19); BLOOD UREA NITROGEN 21 mg/dL (7-20); CALCIUM 9.2 mg/dL (8.4-10.2); CARBON DIOXIDE 30 mmol/L (22-30); CHLORIDE 99 mmol/L (98-107); GLUCOSE 121 mg/dL (75-110); POTASSIUM 4.9 mmol/L (3.6-5.0); SODIUM 137.1 mmol/L (137-145)
[2019-01-11] MEDS: METHYLPREDNISOLONE INJ 125 MG/2 ML SDV IV SCH ×4 (06:25→23:15)
[2019-01-11] MEDS: NYSTATIN 500000 UNIT/5 ML UDCUP PO SCH ×4 (06:25→23:14)
[2019-01-11] MEDS: BUDESONIDE NEB 0.25 MG/2 ML AMPUL NEB SCH ×2 (08:59→19:50)
[2019-01-11] MEDS: DOCUSATE SODIUM 100 MG CAPSULE PO SCH ×2 (10:33→18:32)
[2019-01-11] MEDS: SALMETEROL XINAFOATE DISKUS 50 MCG/1 DOSE 28 DOSE IH SCH ×2 (10:33→21:51)
[2019-01-11] MEDS: GUAIFENESIN 600 MG TABLET.SA PO SCH ×2 (10:33→21:50)
[2019-01-11] MEDS: FAMOTIDINE 20 MG TABLET PO SCH ×2 (10:33→18:32)
[2019-01-11] MEDS: NICOTINE 21 MG/24 HR PATCH.TD24 TD SCH (10:33)
[2019-01-11] MEDS: BUSPIRONE HCL 10 MG TABLET PO SCH ×2 (10:33→21:50)
[2019-01-11] MEDS: ENOXAPARIN SODIUM INJ 40 MG/0.4 ML DISP.SYRIN SUBCUT SCH (10:34)
--- NOTE | 2019-01-11 14:40 | PDOC PROGRESS REPORT ---
Subjective Progress Note for:: 01/11/19 Subjective:: JOSE FERNANDO is a 63 year old black male patient with past medical history of COPD presented with chief complaint of several days history of cough and shortness of breath. Patient reports he has been in usual baseline state of health up until 3 days when he started to have shortness of breath which is worsening progressively and cough productive of whitish sputum. Patient denies any chills fever, chest pain palpitation or diaphoresis. No nausea vomiting abdominal pain or any change in his bowel habit. Patient is noncompliant with his breathing treatment and he also smokes a pack a day. 01/08/2019. No acute events overnight. On my encounter patient is comfortably sitting in his chair in no apparent distress, negative fever, chills, nausea, vomiting, diarrhea, constipation or any urinary symptoms. Patient could be discharged home however he still has wheezing and requires 3 L of oxygen. SBP 581315, pulse 90s RR 16, SPO2 91 to 94% 3 L NC. 01/09/2019. No acute events overnight, patient has been refusing his Pulmicort and tiotropium, he wants his Symbicort which unfortunately we do not carry, stating that he has been having hesitancy, urgency, he is on doxazosin, unfortunately his home but is still results in which we do not carry, otherwise he is eating fine, on my examination comfortably sitting in chair with no supplemental oxygen, denying any fever, chills, nausea, vomiting, diarrhea, constipation or any urinary symptoms. SBP 924470, T-max 98.2, HR 55811, SPO2 9093 on RA. WBC 8.2, hemoglobin 14.0, platelets 165, sodium 134, potassium 4.8, bicarb 28, Financial Officer 0.9. On physical examination he still has generalized wheezing, and SPO2 is 9893 room air. 01/10/2019. No acute events overnight, patient is complaining of dyspnea on e xertion however does not wear his oxygen and refuses to use other inhalers except for his on Symbicort, stating they do not they do not work. Using oxygen stating he does not need oxygen. When patient tries to exerts himself he gets short of breath and becomes very anxious which contributes to his worsening shortness of breath. SBP 242348,T-max 98.0, pulse 881 03, RR 1820, SPO2 9195 2 L NS. 01/11/2019. Significant improvement of his symptoms since yesterday being started on BuSpar, patient has been more compliant with his oxygen. He is stating that he still gets anxious when he exerts for otherwise denies any fever, chest pain, nausea, vomiting, diarrhea, constipation. BPH symptoms are also improving. SBP 370748, T-max 98.2, pulse 90s, RR 1620, SPO2 100 FiO2 24%, 1 L. On physical examination patient has bilateral expiratory wheezes improved compared to yesterday. Patient is to be discharged on oxygen however not arranged yet. Discharge planning is working on it. Reason For Visit: COPD EXACERBATION Physical Exam Vital Signs: Temp Pulse Resp BP Pulse Ox 97.3 F 91 17 133/80 H 100 01/11/19 11:35 01/11/19 11:35 01/11/19 11:35 01/11/19 11:35 01/11/19 11:35 Intake & Output 01/10/19 01/11/19 01/12/19 06:59 06:59 06:59 Intake Total 820 1600 320 Output Total 1000 1000 Balance -180 600 320 Weight 71.2 kg 72 kg General appearance: PRESENT: no acute distress, well-developed, well-nourished Head exam: PRESENT: atraumatic, normocephalic Eye exam: PRESENT: conjunctiva pink, EOMI, PERRLA. ABSENT: scleral icterus Ear exam: PRESENT: normal external ear exam Mouth exam: PRESENT: moist, tongue midline Neck exam: ABSENT: carotid bruit, JVD, lymphadenopathy, thyromegaly Respiratory exam: PRESENT: wheezes. ABSENT: rales, rhonchi Cardiovascular exam: PRESENT: RRR. ABSENT: diastolic murmur, rubs, systolic murmur Pulses: PRESENT: normal dorsalis pedis pul Vascular exam: PRESENT: normal capillary refill GI/Abdominal exam: PRESENT: normal bowel sounds, soft. ABSENT: distended, guarding, mass, organolmegaly, rebound, tenderness Rectal exam: PRESENT: deferred Extremities exam: PRESENT: full ROM. ABSENT: calf tenderness, clubbing, pedal edema Neurological exam: PRESENT: alert, awake, oriented to person, oriented to place, oriented to time, oriented to situation, CN II-XII grossly intact. ABSENT: motor sensory deficit Psychiatric exam: PRESENT: appropriate affect, normal mood. ABSENT: homicidal ideation, suicidal ideation Skin exam: PRESENT: dry, intact, warm. ABSENT: cyanosis, rash Results Laboratory Results: 01/11/19 04:14 01/11/19 04:14 01/11/19 01/11/19 04:14 04:14 WBC 6.4 RBC 4.38 Hgb 13.6 Hct 40.7 MCV 93 MCH 30.9 MCHC 33.3 RDW 13.7 Plt Count 161 Seg Neutrophils % 86.7 H Lymphocytes % 7.8 L Monocytes % 5.4 Eosinophils % 0.0 Basophils % 0.1 Absolute Neutrophils 5.5 Absolute Lymphocytes 0.5 Absolute Monocytes 0.3 Absolute Eosinophils 0.0 Absolute Basophils 0.0 Sodium 137.1 Potassium 4.9 Chloride 99 Carbon Dioxide 30 Anion Gap 8 BUN 21 H Creatinine 0.81 Est GFR ( Amer) > 60 Est GFR (Non-Af Amer) > 60 Glucose 121 H Calcium 9.2 Magnesium 2.3 01/06/19 10:37 CK-MB (CK-2) 2.56 Troponin I < 0.012 Impressions: Chest X-Ray 01/06/19 10:21 IMPRESSION: Chronic lung changes with no acute cardiopulmonary findings. Assessment and Plan - Diagnosis (1) COPD exacerbation Is this a current diagnosis for this admission?: Yes Plan: Moderate improvement. Mild expiratory wheezes on physical examination. SPO2 WNL on 1 L NS. Not on home oxygen. Patient more compliant with his meds since being started on BuSpar still prefers his home Symbicort. Unfortunately we do not carry Symbicort in the hospital. Was advised to wear his oxygen. Start on Ativan as needed and BuSpar scheduled. 01/11/2019: SBP 172931, T-max 98.2, pulse 90s, RR 1620, SPO2 100 FiO2 24%, 1 L. 01/10/2019: SBP 583846,T-max 98.0, pulse 881 03, RR 1820, SPO2 9195 2 L NS. 01/09/2019: SBP 397308, T-max 98.2, HR 65157, SPO2 9093 on RA. 01/08/2019: SBP 817053, pulse 90s RR 16, SPO2 91 to 94% 3 L NC. Continue supplemental oxygen, DuoNeb, Symbicort, salmeterol, IV steroids, PRN BiPAP. (2) Tobacco dependence Is this a current diagnosis for this admission?: Yes Plan: Had a long discussion about the importance of quitting smoking and its effect on his underlying COPD. Patient is said he does not want to be dependent on oxygen, and he has made up his mind that he will quit smoking. Continue nicotine patch. (3) BPH (benign prostatic hyperplasia) Qualifiers: Lower urinary tract symptom presence: symptoms present Is this a current diagnosis for this admission?: Yes Plan: Patient is reporting poor response on doxazosin. Taking terazosin at home which unfortunately do not carry in the hospital. (4) Anxiety Is this a current diagnosis for this admission?: No Plan: Much improved. Continue BuSpar 5 mg p.o. twice daily. Ativan as needed.
[2019-01-11] MEDS: DOXAZOSIN MESYLATE 4 MG TABLET PO SCH (21:50)
[2019-01-12] MEDS: LEVALBUTEROL HCL NEB 0.63 MG/3 ML AMPUL NEB SCH ×5 (03:44→20:01)
[2019-01-12] MEDS: NYSTATIN 500000 UNIT/5 ML UDCUP PO SCH ×3 (06:12→17:50)
[2019-01-12] MEDS: METHYLPREDNISOLONE INJ 125 MG/2 ML SDV IV SCH ×3 (06:12→17:50)
[2019-01-12] MEDS: BUDESONIDE NEB 0.25 MG/2 ML AMPUL NEB SCH ×2 (07:54→20:04)
[2019-01-12] MEDS: SALMETEROL XINAFOATE DISKUS 50 MCG/1 DOSE 28 DOSE IH SCH ×2 (11:12→22:58)
[2019-01-12] MEDS: GUAIFENESIN 600 MG TABLET.SA PO SCH ×2 (11:13→22:58)
[2019-01-12] MEDS: DOCUSATE SODIUM 100 MG CAPSULE PO SCH ×2 (11:14→17:50)
[2019-01-12] MEDS: FAMOTIDINE 20 MG TABLET PO SCH ×2 (11:14→17:50)
[2019-01-12] MEDS: BUSPIRONE HCL 10 MG TABLET PO SCH ×2 (11:14→22:58)
[2019-01-12] MEDS: ENOXAPARIN SODIUM INJ 40 MG/0.4 ML DISP.SYRIN SUBCUT SCH (11:15)
[2019-01-12] MEDS: NICOTINE 21 MG/24 HR PATCH.TD24 TD SCH (11:16)
--- NOTE | 2019-01-12 16:52 | PDOC PROGRESS REPORT ---
Subjective Progress Note for:: 01/12/19 Subjective:: JOSE FERNANDO is a 63 year old black male patient with past medical history of COPD presented with chief complaint of several days history of cough and shortness of breath. Patient reports he has been in usual baseline state of health up until 3 days when he started to have shortness of breath which is worsening progressively and cough productive of whitish sputum. Patient denies any chills fever, chest pain palpitation or diaphoresis. No nausea vomiting abdominal pain or any change in his bowel habit. Patient is noncompliant with his breathing treatment and he also smokes a pack a day. 01/08/2019. No acute events overnight. On my encounter patient is comfortably sitting in his chair in no apparent distress, negative fever, chills, nausea, vomiting, diarrhea, constipation or any urinary symptoms. Patient could be discharged home however he still has wheezing and requires 3 L of oxygen. SBP 667014, pulse 90s RR 16, SPO2 91 to 94% 3 L NC. 01/09/2019. No acute events overnight, patient has been refusing his Pulmicort and tiotropium, he wants his Symbicort which unfortunately we do not carry, stating that he has been having hesitancy, urgency, he is on doxazosin, unfortunately his home but is still results in which we do not carry, otherwise he is eating fine, on my examination comfortably sitting in chair with no supplemental oxygen, denying any fever, chills, nausea, vomiting, diarrhea, constipation or any urinary symptoms. SBP 953916, T-max 98.2, [place] 70078, SPO2 9093 on RA. WBC 8.2, hemoglobin 14.0, platelets 165, sodium 134, potassium 4.8, bicarb 28, Maturity Checker 0.9. On physical examination he still has generalized wheezing, and SPO2 is 9893 room air. 01/10/2019. No acute events overnight, patient is complaining of dyspnea on e xertion however does not wear his oxygen and refuses to use other inhalers except for his on Symbicort, stating they do not they do not work. Using oxygen stating he does not need oxygen. When patient tries to exerts himself he gets short of breath and becomes very anxious which contributes to his worsening shortness of breath. SBP 726390,T-max 98.0, pulse 881 03, RR 1820, SPO2 9195 2 L NS. 01/11/2019. Significant improvement of his symptoms since yesterday being started on BuSpar, patient has been more compliant with his oxygen. He is stating that he still gets anxious when he exerts for otherwise denies any fever, chest pain, nausea, vomiting, diarrhea, constipation. BPH symptoms are also improving. SBP 401275, T-max 98.2, pulse 90s, RR 1620, SPO2 100 FiO2 24%, 1 L. On physical examination patient has bilateral expiratory wheezes improved compared to yesterday. Patient is to be discharged on oxygen however not arranged yet. Discharge planning is working on it. 01/12/2019. Moderate improvement of his symptoms, but still not compliant with his supplemental oxygen, took a shower today without any oxygen, after the shower when i saw him he stated that he feels tired however denies any anxiety or shortness of breath. Denies any fever, chills, nausea, vomiting, diarrhea, constipation or any urinary symptoms. Pending discharge home when oxygen supply is available. Reason For Visit: COPD EXACERBATION Physical Exam Vital Signs: Temp Pulse Resp BP Pulse Ox 97.4 F 81 16 123/62 93 01/12/19 15:30 01/12/19 15:55 01/12/19 15:55 01/12/19 15:30 01/12/19 15:55 Intake & Output 01/11/19 01/12/19 01/13/19 06:59 06:59 06:59 Intake Total 1600 820 690 Output Total 1000 800 300 Balance 600 20 390 Weight 72 kg 71.5 kg General appearance: PRESENT: no acute distress, well-developed, well-nourished Head exam: PRESENT: atraumatic, normocephalic Eye exam: PRESENT: conjunctiva pink, EOMI, PERRLA. ABSENT: scleral icterus Ear exam: PRESENT: normal external ear exam Mouth exam: PRESENT: moist, tongue midline Neck exam: ABSENT: carotid bruit, JVD, lymphadenopathy, thyromegaly Respiratory exam: PRESENT: clear to auscultation kyree, wheezes. ABSENT: rales, rhonchi Cardiovascular exam: PRESENT: RRR. ABSENT: diastolic murmur, rubs, systolic m urmur Pulses: PRESENT: normal dorsalis pedis pul Vascular exam: PRESENT: normal capillary refill GI/Abdominal exam: PRESENT: normal bowel sounds, soft. ABSENT: distended, guarding, mass, organolmegaly, rebound, tenderness Rectal exam: PRESENT: deferred Extremities exam: PRESENT: full ROM. ABSENT: calf tenderness, clubbing, pedal edema Neurological exam: PRESENT: alert, awake, oriented to person, oriented to place, oriented to time, oriented to situation, CN II-XII grossly intact. ABSENT: motor sensory deficit Psychiatric exam: PRESENT: appropriate affect, normal mood. ABSENT: homicidal ideation, suicidal ideation Skin exam: PRESENT: dry, intact, warm. ABSENT: cyanosis, rash Results Laboratory Results: 01/11/19 04:14 01/11/19 04:14 01/06/19 10:37 CK-MB (CK-2) 2.56 Troponin I < 0.012 Impressions: Chest X-Ray 01/06/19 10:21 IMPRESSION: Chronic lung changes with no acute cardiopulmonary findings. Assessment and Plan - Diagnosis (1) COPD exacerbation Is this a current diagnosis for this admission?: Yes Plan: Moderate improvement. Mild expiratory wheezes on physical examination. SPO2 WNL on 1 L NS. Not on home oxygen. Patient more compliant with his meds since being started on BuSpar still prefers his home Symbicort. Unfortunately we do not carry Symbicort in the hospital. Was advised to wear his oxygen. Start on Ativan as needed and BuSpar scheduled. 01/11/2019: SBP 115583, T-max 98.2, pulse 90s, RR 1620, SPO2 100 FiO2 24%, 1 L. 01/10/2019: SBP 252479,T-max 98.0, pulse 881 03, RR 1820, SPO2 9195 2 L NS. 01/09/2019: SBP 724974, T-max 98.2, HR 21135, SPO2 9093 on RA. 01/08/2019: SBP 433030, pulse 90s RR 16, SPO2 91 to 94% 3 L NC. Continue supplemental oxygen, DuoNeb, Symbicort, salmeterol, IV steroids, PRN BiPAP. (2) Tobacco dependence Is this a current diagnosis for this admission?: Yes Plan: Had a long discussion about the importance of quitting smoking and its effect on his underlying COPD. Patient is said he does not want to be dependent on oxygen, and he has made up his mind that he will quit smoking. Continue nicotine patch. (3) BPH (benign prostatic hyperplasia) Qualifiers: Lower urinary tract symptom presence: symptoms present Is this a current diagnosis for this admission?: Yes Plan: Patient is reporting poor response on doxazosin. Taking terazosin at home which unfortunately do not carry in the hospital. (4) Anxiety Is this a current diagnosis for this admission?: No Plan: Much improved. Increase 4 to 10 mg p.o. twice daily. Ativan as needed.
[2019-01-12] MEDS: DOXAZOSIN MESYLATE 4 MG TABLET PO SCH (22:58)
[2019-01-13] MEDS: LEVALBUTEROL HCL NEB 0.63 MG/3 ML AMPUL NEB SCH ×5 (00:06→16:22)
[2019-01-13] MEDS: METHYLPREDNISOLONE INJ 125 MG/2 ML SDV IV SCH ×4 (01:10→17:45)
[2019-01-13] MEDS: NYSTATIN 500000 UNIT/5 ML UDCUP PO SCH ×4 (01:36→17:45)
[2019-01-13] MEDS: BUDESONIDE NEB 0.25 MG/2 ML AMPUL NEB SCH (08:47)
[2019-01-13] MEDS: SALMETEROL XINAFOATE DISKUS 50 MCG/1 DOSE 28 DOSE IH SCH (09:37)
[2019-01-13] MEDS: BUSPIRONE HCL 10 MG TABLET PO SCH (09:37)
[2019-01-13] MEDS: ENOXAPARIN SODIUM INJ 40 MG/0.4 ML DISP.SYRIN SUBCUT SCH (09:38)
[2019-01-13] MEDS: FAMOTIDINE 20 MG TABLET PO SCH ×2 (09:38→17:45)
[2019-01-13] MEDS: NICOTINE 21 MG/24 HR PATCH.TD24 TD SCH (09:38)
[2019-01-13] MEDS: GUAIFENESIN 600 MG TABLET.SA PO SCH (09:38)
[2019-01-13] MEDS: DOCUSATE SODIUM 100 MG CAPSULE PO SCH ×2 (09:38→18:06)
[2019-01-13 17:50] VITALS: BP 129/78
== END 2019-01-13 18:08 | disposition home or self-care (01) | DRG 192 ==
LOC: ER 09:18 → EH 12:17 → INTOOBSV 12:17 → 5 14:11 → OBSVTOIN 01-08 10:24
PROVIDERS: ADMIT Internal Medicine; ATTEND Internal Medicine
DX: J44.1 Chronic obstructive pulmonary disease with (acute) exacerbation (principal); I11.0 Hypertensive heart disease with heart failure; I50.9 Heart failure, unspecified; Z86.11 Personal history of tuberculosis; K21.9 Gastro-esophageal reflux disease without esophagitis; F32.9 Major depressive disorder, single episode, unspecified; F17.210 Nicotine dependence, cigarettes, uncomplicated; Z91.013 Allergy to seafood; N40.0 Benign prostatic hyperplasia without lower urinary tract symptoms; Z91.19 Patient's noncompliance with other medical treatment and regimen; F41.9 Anxiety disorder, unspecified; Z79.51 Long term (current) use of inhaled steroids; Z88.8 Allergy status to other drugs, medicaments and biological substances
CPT/HCPCS: 36415; 71046; 80048; 80053; 80307; 81001; 82553; 82803; 83735; 84484; 85025; 93005; 93010; 94640; 96374; 99291; G0378; J1650; J2930; J3475; J3490; J7512; J7614; J7620; J7626

== ENCOUNTER 2019-07-15 02:09 | Inpatient (IN) | payer OTHER ==
[2019-07-15] MEDS ORDERED: IPRATROPIUM/ALBUTEROL 0.5-2.5 MG/3 ML AMPUL NEB ONE (02:14)
[2019-07-15] MEDS: MAGNESIUM SULFATE/D5W 1 GM/100 ML RTUPB IV SCH ×2 (02:31→02:54)
[2019-07-15] MEDS: ALBUTEROL SULFATE 0.083% NEB 2.5 MG/3 ML AMPUL NEB SCH (02:54)
--- NOTE | 2019-07-15 02:56 | RADIOLOGY REPORT (SQ) ---
EXAM DESCRIPTION: XR CHEST 1 VIEW COMPLETED DATE/TME: 07/15/2019 02:11 CLINICAL HISTORY: 63 years Male, DIFFICULTY BREATHING COMPARISON: 01/06/19 NUMBER OF VIEWS/TECHNIQUE: 1/AP FINDINGS: Increased lung volume, clear parenchyma, normal cardiac silhouette, and intact bony thorax. IMPRESSION: No acute cardiopulmonary findings.
[2019-07-15 03:11] LABS: ABSOLUTE EOSINOPHILS # (AUTO) 0.5 10^3/uL (0.0-0.6); ABSOLUTE LYMPHOCYTES (AUTO) 2.5 10^3/uL (0.5-4.7); ABSOLUTE MONOCYTES (AUTO) 0.5 10^3/uL (0.1-1.4); ABSOLUTE NEUT (AUTO) 3.4 10^3/uL (1.7-8.2); BASOPHILS % (AUTO) 0.3 % (0-2); EOSINOPHILS % (AUTO) 7.7 % (0-6); HEMATOCRIT 42.6 % (37.9-51.0); HEMOGLOBIN 14.2 g/dL (13.5-17.0); MEAN CORPUSCULAR HEMOGLOBIN 31.1 pg (27.0-33.4); MEAN CORPUSCULAR HGB CONC 33.4 g/dL (32.0-36.0); MEAN CORPUSCULAR VOLUME 93 fl (80-97); MONOCYTES % (AUTO) 6.9 % (3-13); PLATELET COUNT 267 10^3/uL (150-450); RED BLOOD COUNT 4.57 10^6/uL (4.35-5.55); RED CELL DISTRIBUTION WIDTH 13.6 % (11.5-14.0); SEGMENTED NEUTROPHILS % (AUTO) 49.1 % (42-78); TOTAL CELLS COUNTED % (AUTO) 100 %; WHITE BLOOD COUNT 6.8 10^3/uL (4.0-10.5)
[2019-07-15] MEDS ORDERED: MORPHINE SULFATE 10 MG/ML INJ IV ONE (03:28)
[2019-07-15 03:41] LABS: ALBUMIN 4.2 g/dL (3.5-5.0); ALKALINE PHOSPHATASE 62 U/L (38-126); ANION GAP 9 (5-19); ASPARTATE AMINO TRANSFERASE 19 U/L (17-59); BILIRUBIN,DIRECT 0.2 mg/dL (0.0-0.4); BILIRUBIN,TOTAL 0.4 mg/dL (0.2-1.3); BLOOD UREA NITROGEN 15 mg/dL (7-20); CALCIUM 9.3 mg/dL (8.4-10.2); CARBON DIOXIDE 31 mmol/L (22-30); CHLORIDE 98 mmol/L (98-107); CREATINE KINASE 188 U/L (55-170); GLUCOSE 125 mg/dL (75-110); POTASSIUM 4.9 mmol/L (3.6-5.0); TOTAL PROTEIN 7.7 g/dL (6.3-8.2)
[2019-07-15 03:53] LABS: CREATINE KINASE MB 2.95 ng/mL (<4.55); NT PRO BNP 29 pg/mL (<125)
[2019-07-15 03:55] LABS: TROPONIN I < 0.012 ng/mL
--- NOTE | 2019-07-15 04:16 | ER Document Report ---
ED General - General Chief Complaint: Breathing Difficulty Stated Complaint: DIFFICULTY BREATHING Time Seen by Provider: 07/15/19 02:21 Primary Care Provider: ROCKY DEL ANGEL [Primary Care Provider] - Follow up as needed TRAVEL OUTSIDE OF THE [place] IN LAST 30 DAYS: No - HPI Notes: Patient is a 63-year-old male who presents emergency department for evaluation of shortness of breath. He states his been short of breath for about a week. Is been worse over the last 3 days. Denies any fevers or chills. He has had a productive cough. He denies any pain of any sort at this time, he states he does have some intermittent neck pain. He states that that is not out of the ordinary. Denies any vomiting. He is eating and drinking normally. The patient does continue to smoke. - Related Data Allergies/Adverse Reactions: iodine [Iodine] Allergy (Verified 01/06/19 10:43) Shellfish * [Shellfish] Allergy (Verified 01/06/19 10:43) shellfish derived Allergy (Verified 01/06/19 10:43) Past Medical History - General Information source: Patient - Social History Smoking Status: Current Every Day Smoker Chew tobacco use (# tins/day): No Frequency of alcohol use: None Drug Abuse: None Family History: CAD, COPD, Reviewed & Not Pertinent Patient has suicidal ideation: No Patient has homicidal ideation: No - Past Medical History Cardiac Medical History: Reports: Hx Congestive Heart Failure Denies: Hx Coronary Artery Disease, Hx Hypertension Pulmonary Medical History: Reports: Hx COPD, Hx Tuberculosis - Treatment in 1991 Denies: Hx Respiratory Failure, Hx Sleep Apnea Endocrine Medical History: Denies: Hx Diabetes Mellitus Type 1, Hx Diabetes Mellitus Type 2 Renal/ Medical History: Reports: Hx Benign Prostatic Hyperplasia. Denies: Hx Peritoneal Dialysis Malignancy Medical History: Denies Hx Lung Cancer GI Medical History: Reports: Hx Gastroesophageal Reflux Disease Musculoskeletal Medical History: Reports Hx Arthritis Psychiatric Medical History: Reports: Hx Depression Past Surgical History: Denies: Hx Appendectomy, Hx Bowel Surgery, Hx Cholecystectomy, Hx Coronary Artery Bypass Graft, Hx Gastric Bypass Surgery, Hx Herniorrhaphy, Hx Pacemaker, Hx Tonsillectomy - Immunizations Hx Diphtheria, Pertussis, Tetanus Vaccination: Yes Hx Pneumococcal Vaccination: 03/12/12 Review of Systems - Review of Systems Constitutional: No symptoms reported EENT: No symptoms reported Cardiovascular: No symptoms reported Respiratory: See HPI Gastrointestinal: No symptoms reported Genitourinary: No symptoms reported Musculoskeletal: No symptoms reported Skin: No symptoms reported Neurological/Psychological: No symptoms reported Physical Exam - Vital signs Vitals: Pulse Ox 99 07/15/19 02:18 - Notes Notes: This is a 63-year-old gentleman, who appears older than his stated age, in a moderate amount of distress. He is tachypneic, tachycardic. Vital signs reviewed, please refer to chart. Head is normocephalic, atraumatic. Pupils equal round, reactive to light. Neck is supple without meningismus. Heart is regular rate and rhythm. Lungs reveal prolonged expiratory phase, markedly diminished breath sounds, scant expiratory wheezes. Abdomen is soft, nontender, normoactive bowel sounds throughout. Extremities without cyanosis, clubbing. Posterior calves are nontender. Peripheral pulses are equal. Skin is warm and dry. Patient is awake, alert, neurological exam is nonfocal. Course - Re-evaluation Re-evalutation: 07/15/19 04:17 Patient presents to the emergency department for evaluation. Upon initial arrival the patient was noted to be in significant respiratory distress. BiPAP was ordered. He was administered Solu-Medrol and duo nebs in the field. He was given further DuoNeb, magnesium here. Laboratory investigations failed to reveal any acute abnormality. His imaging failed to show any acute infiltrate. Patient is feeling improved. He does complain of pain in his neck, was given s ome morphine, with improvement there. The patient will be admitted for further care. - Vital Signs Vital signs: Temp Pulse Resp BP Pulse Ox 19 124/91 H 100 07/15/19 03:01 07/15/19 03:01 07/15/19 03:04 - Laboratory Result Diagrams: 07/15/19 02:56 07/15/19 02:56 Laboratory results interpreted by me: 07/15/19 07/15/19 02:56 02:56 Eos % (Auto) 7.7 H Carbon Dioxide 31 H Glucose 125 H Creatine Kinase 188 H - Diagnostic Test Radiology reviewed: Reports reviewed Radiology results interpreted by me: 07/15/19 04:17 Chest X-Ray 07/15/19 02:11 IMPRESSION: No acute cardiopulmonary findings. - EKG Interpretation by Me Additional EKG results interpreted by me: 07/15/19 04:17 Sinus tachycardia with rate of 129 bpm. Normal axis and intervals. Nonspecific ST changes, but no acute changes concerning for ischemia or infarction. Critical Care Note - Critical Care Note Total time excluding time spent on procedures (mins): 20 Discharge - Discharge Clinical Impression: COPD exacerbation Condition: Stable Disposition: HOME, SELF-CARE Admitting Provider: Marilyn (Hospitalist) Unit Admitted: Telemetry Referrals: [facility] [Primary Care Provider] - Follow up as needed
--- NOTE | 2019-07-15 04:39 | PDOC H&P ---
History of Present Illness Admission Date/PCP: 07/15/2019 04:17 [facility] Patient complains of: Dyspnea History of Present Illness: JOSE FERNANDO is a 63 year old male who presents the emergency room with a one-week history of dyspnea. Patient admits that over the last week he has experienced gradually worsening dyspnea becoming much more severe over the last 3 days. His dyspnea worsens with exertion or activity and has been accompanied by a productive cough (clear to whitish sputum). He denies other associated or accompanying signs and symptoms. He admits numerous prior similar episodes with exacerbations of his chronic obstructive pulmonary disease. He has not identified any additional aggravating or ameliorating factors for his dyspnea. In the emergency room he was found to have hypoxia and markedly increased work of breathing resulting in his being placed on BiPAP with excellent results. His laboratory and radiographic evaluation was unremarkable. He was subsequently admitted to the hospital for further evaluation and treatment. Past Medical History Cardiac Medical History: Reports: Congestive Heart Failure Denies: Atrial Fibrillation, Coronary Artery Disease, DVT, Myocardial Infarction, Hyperlipidema, Hypertension, Pulmonary Embolism Pulmonary Medical History: Reports: Bronchitis, Chronic Obstructive Pulmonary Disease (COPD), Pneumonia, Respiratory Failure - Chronic respiratory failure on O2 per nasal cannula at 2 L/min continuously, Tuberculosis - Treatment in 1991 Denies: Sleep Apnea EENT Medical History: Denies: Cataracts, Ears - Hearing aids Neurological Medical History: Denies: Hemorrhagic CVA, Ischemic CVA, Seizures Endocrine Medical History: Denies: Diabetes Mellitus Type 1, Diabetes Mellitus Type 2, Hyperthyroidism, Hypothyroidism, Obesity Renal/ Medical History: Denies: Chronic Kidney Disease, Nephrolithiasis GI Medical History: Reports: Gastroesophageal Reflux Disease Denies: Cirrhosis, Crohn's Disease, Hepatitis, Peptic Ulcer Disease, Ulcerative Colitis Musculoskeltal Medical History: Reports: Arthritis Denies: Gout Skin Medical History: Denies: Eczema, Psoriasis Psychiatric Medical History: Reports: Depression, General Anxiety Disorder, Substance Abuse, Tobacco Dependency Denies: Alcohol Dependency Traumatic Medical History: Reports: None Hematology: Denies: Anemia, Bleeding Tendencies Infectious Medical History: Reports: None Past Surgical History Past Surgical History: Reports: None Social History Information Source: Patient Lives with: Alone Smoking Status: Current Every Day Smoker Electronic Cigarette use?: No Frequency of Alcohol Use: Occasional Hx Recreational Drug Use: Yes Drugs: Cocaine Hx Prescription Drug Abuse: No - Advance Directive Resuscitation Status: Full Code Surrogate healthcare decision maker:: Antoni Boles Jr. Family History Family History: CAD, COPD. denies: DM, Hypertension, Malignancy Parental Family History Reviewed: Yes Children Family History Reviewed: No Sibling(s) Family History Reviewed.: Yes Medication/Allergy Home Medications: Albuterol Sulfate [Proair HFA Inhalation Aerosol 8.5 gm MDI] 1 puff IH Q4HP PRN 01/06/19 Albuterol Sulfate [Ventolin 0.083% Neb 2.5 mg/3 mL Ampul] 2.5 mg NEB [id number] PRN 01/06/19 Aspirin [Adult Low Dose Aspirin EC] 81 mg PO DAILY 01/06/19 Budesonide/Formoterol Fumarate [Symbicort HFA 160-4.5 mcg Inhaler 6 gm] 2 puff IH BID 01/06/19 Docusate Sodium [Colace 100 mg Capsule] 100 mg PO BID 01/06/19 Famotidine [Pepcid 20 mg Tablet] 20 mg PO BID 01/06/19 Melatonin [Melatonin 5 mg Tablet] 5 mg PO QHS 01/06/19 Multivitamin [Multiple Vitamins] 1 tab PO DAILY 01/06/19 Terazosin HCl [Hytrin] 10 mg PO DAILY 01/06/19 Buspirone HCl [Buspar 10 mg Tablet] 10 mg PO Q12 30 Days #60 tablet 01/13/19 Prednisone [Deltasone] 40 mg PO DAILY 2 Days #4 tablet 01/13/19 Allergies/Adverse Reactions: iodine [Iodine] Allergy (Verified 01/06/19 10:43) Shellfish * [Shellfish] Allergy (Verified 01/06/19 10:43) shellfish derived Allergy (Verified 01/06/19 10:43) Review of Systems Constitutional: ABSENT: chills, fever(s) Eyes: ABSENT: visual disturbances, other - Eye pain Ears: ABSENT: hearing changes, other - Ear pain Nose, Mouth, and Throat: ABSENT: mouth pain, sore throat Cardiovascular: PRESENT: as per HPI, dyspnea on exertion. ABSENT: chest pain, edema, orthropnea, palpitations Respiratory: PRESENT: as per HPI, cough, dyspnea, sputum. ABSENT: hemoptysis Gastrointestinal: ABSENT: abdominal pain, constipation, diarrhea, nausea, vomiting Genitourinary: ABSENT: dysuria, hematuria Musculoskeletal: PRESENT: other - Chronic neck pain. ABSENT: back pain, joint swelling, muscle weakness Integumentary: ABSENT: pruritus, rash Neurological: ABSENT: confusion, convulsions, focal weakness, memory loss, syncope Psychiatric: ABSENT: anxiety, depression Endocrine: ABSENT: cold intolerance, heat intolerance Hematologic/Lymphatic: ABSENT: easy bleeding, easy bruising Allergic/Immunologic: ABSENT: seasonal rhinorrhea Physical Exam Vital Signs: Temp Pulse Resp BP Pulse Ox 19 124/91 H 100 07/15/19 03:01 07/15/19 03:01 07/15/19 03:04 Intake & Output 07/13/19 07/14/19 07/15/19 23:59 23:59 23:59 Intake Total 138 Balance 138 General appearance: PRESENT: no acute distress, cooperative, other - On BiPAP Head exam: PRESENT: atraumatic, normocephalic Eye exam: PRESENT: conjunctiva pink. ABSENT: conjunctival injection, scleral icterus Ear exam: PRESENT: normal external ear exam. ABSENT: bleeding, drainage Mouth exam: PRESENT: dry mucosa, neck supple Neck exam: ABSENT: thyromegaly, tracheal deviation Respiratory exam: PRESENT: decreased breath sounds - Moderately decreased breath sounds noted throughout all mohan, prolonged expiratory phas - Moderately prolonged expiratory phase noted throughout all mohan, symmetrical, wheezes - Moderate expiratory wheezes present throughout all mohan, other - On BiPAP. ABSENT: chest wall tenderness, rales, rhonchi Cardiovascular exam: PRESENT: RRR. ABSENT: clicks, gallop, rubs Pulses: PRESENT: normal radial pulses, normal dorsalis pedis pul Vascular exam: PRESENT: normal capillary refill. ABSENT: pallor GI/Abdominal exam: PRESENT: normal bowel sounds, soft Rectal exam: PRESENT: deferred Extremities exam: ABSENT: joint swelling, pedal edema Musculoskeletal exam: ABSENT: deformity, dislocation Neurological exam: PRESENT: alert, oriented to person, oriented to place, oriented to time, oriented to situation, CN II-XII grossly intact. ABSENT: mot or sensory deficit Psychiatric exam: PRESENT: appropriate affect, normal mood Skin exam: PRESENT: dry, intact, warm. ABSENT: jaundice, rash, urticaria Results Laboratory Results: 07/15/19 02:56 07/15/19 02:56 07/15/19 07/15/19 02:56 02:56 WBC 6.8 RBC 4.57 Hgb 14.2 Hct 42.6 MCV 93 MCH 31.1 MCHC 33.4 RDW 13.6 Plt Count 267 Seg Neutrophils % 49.1 Sodium 137.8 Potassium 4.9 Chloride 98 Carbon Dioxide 31 H Anion Gap 9 BUN 15 Creatinine 0.87 Est GFR ( Amer) > 60 Glucose 125 H Calcium 9.3 Total Bilirubin 0.4 AST 19 Alkaline Phosphatase 62 Total Protein 7.7 Albumin 4.2 07/15/19 07/15/19 02:56 02:56 Creatine Kinase 188 H CK-MB (CK-2) 2.95 Troponin I < 0.012 NT-Pro-B Natriuret Pep 29 Impressions: Chest X-Ray 07/15/19 02:11 IMPRESSION: No acute cardiopulmonary findings. Assessment and Plan - Diagnosis (1) COPD exacerbation Is this a current diagnosis for this admission?: Yes (2) Acute and chronic respiratory failure with hypoxia Is this a current diagnosis for this admission?: Yes (3) BPH (benign prostatic hyperplasia) Qualifiers: Lower urinary tract symptom presence: symptoms present Is this a current diagnosis for this admission?: Yes (4) Mixed anxiety depressive disorder Is this a current diagnosis for this admission?: Yes (5) Chronic cervical pain Is this a current diagnosis for this admission?: Yes (6) Tobacco dependence Is this a current diagnosis for this admission?: Yes - Plan Summary Summary: Patient will be admitted to the medical floor on telemetry monitoring. He will be treated with an aggressive pulmonary toilet utilizing nebulized Xopenex, Atrovent and Pulmicort. He will receive a short course of Solu-Medrol IV. He will be treated with BiPAP to maintain adequate oxygenation without CO2 retention. He will be continued on his usual medications for his chronic medical problems as appropriate. He will be given a regular diet and encouraged to take oral fluids. Will be followed with daily CBCs and metabolic profiles. He will use Nubain 5 to 10 mg IV every 3 hours on as-needed basis for pain control. Smoking cessation is advised and counseled briefly at the bedside. He will have a nicotine replacement patch available for his use, if desired. - Time Time Spent with patient: 15-24 minutes Smoking Cessation Education: 3 to 10 minutes Medications reviewed and adjusted accordingly: Yes Anticipated discharge: Home - Inpatient Certification Based on my medical assessment, after consideration of the patient's comorbidities, presenting symptoms, or acuity I expect that the services needed warrant INPATIENT care.: Yes I certify that my determination is in accordance with my understanding of Medicare's requirements for reasonable and necessary INPATIENT services [42 CFR 412.3e].: Yes Medical Necessity: Need Close Monitoring Due to Risk of Patient Decompensation, Need For Continuous Telemetry Monitoring, Need for Nebulizer Therapy and Monitoring of Response, Risk of Complication if Not Cared For in Hospital
[2019-07-15] MEDS ORDERED: NALBUPHINE HCL INJ 10 MG/1 ML AMPULE IV PRN ×3 (04:41→05:05)
[2019-07-15] MEDS ORDERED: ACETAMINOPHEN 325 MG TABLET PO PRN (04:41)
[2019-07-15] MEDS ORDERED: MAGNESIUM HYDROXIDE SUSP 30 ML UDCUP PO PRN (04:41)
[2019-07-15] MEDS ORDERED: MAG HYDROX/AL HYDROX/SIMETH SUSP 30 ML UDCUP PO PRN (04:41)
[2019-07-15] MEDS ORDERED: PROMETHAZINE HCL INJ 25 MG/1 ML VIAL IV PRN (04:45)
[2019-07-15] MEDS ORDERED: RINGERS SOLUTION,LACTATED 1,000 ML IV PRN (04:45)
[2019-07-15] MEDS: BUSPIRONE HCL 10 MG TABLET PO SCH ×3 (06:42→22:23)
[2019-07-15] MEDS: HEPARIN SOD (PORCINE) 5,000 UNIT/ML 1 ML VIAL SUBCUT SCH ×3 (06:42→22:23)
[2019-07-15] MEDS: METHYLPREDNISOLONE INJ 40 MG/1 ML SDV IV SCH ×3 (06:57→17:18)
[2019-07-15] MEDS: IPRATROPIUM BROMIDE 0.02% NEB 0.5 MG/2.5 ML AMPUL NEB SCH ×2 (07:57→17:56)
[2019-07-15] MEDS: BUDESONIDE NEB 0.5 MG/2 ML AMPUL NEB SCH ×2 (07:58→21:30)
[2019-07-15] MEDS: LEVALBUTEROL HCL NEB 1.25 MG/3 ML AMPUL NEB SCH ×2 (07:58→17:55)
--- NOTE | 2019-07-15 08:00 | EKG REPORT ---
SEVERITY:- ABNORMAL ECG - SINUS TACHYCARDIA LIE, CONSIDER BIATRIAL ABNORMALITIES CHRONIC PULMONARY DISEASE PATTERN BORDERLINE R WAVE PROGRESSION, ANTERIOR LEADS : Confirmed by: Sabas Flores MD 15-Jul-2019 07:59:40
[2019-07-15 08:03] LABS: APPEARANCE,URINE CLEAR; BILIRUBIN,URINE NEGATIVE (NEGATIVE); COLOR,URINE YELLOW; GLUCOSE, URINE NEGATIVE (NEGATIVE); KETONES,URINE NEGATIVE (NEGATIVE); LEUKOCYTE ESTERASE,URINE NEGATIVE (NEGATIVE); NITRITE,URINE NEGATIVE (NEGATIVE); PROTEIN,URINE NEGATIVE (NEGATIVE); URINE SPECIFIC GRAVITY 1.028; UROBILINOGEN,URINE NEGATIVE mg/dL (<2.0)
[2019-07-15] MEDS: DOCUSATE SODIUM 100 MG CAPSULE PO SCH ×2 (11:09→17:18)
[2019-07-15] MEDS: FAMOTIDINE 20 MG TABLET PO SCH ×2 (11:09→22:23)
[2019-07-15 16:50] LABS: ARTERIAL BLOOD BASE EXCESS 2.9 mmol/L; ARTERIAL BLOOD H2CO3 1.72 mmol/L (1.05-1.35); ARTERIAL BLOOD HCO3 30.1 mmol/L (20-24); ARTERIAL BLOOD O2 SATURATION 95.8 % (94-98); ARTERIAL BLOOD PCO2 57.2 mmHg (35-45); ARTERIAL BLOOD PH 7.34 (7.35-7.45); ARTERIAL BLOOD PO2 86.1 mmHg (80-100); ARTERIAL BLOOD TOTAL CO2 31.9 mmol/L (23-27)
[2019-07-15 16:51] LABS: ARTERIAL BLOOD FIO2 2L
[2019-07-15] MEDS: TAMSULOSIN HCL 0.4 MG CAP.SR.24H PO SCH (17:15)
[2019-07-15] MEDS: NORMAL SALINE 1000 ML 1,000 ML IV PRN (17:20)
[2019-07-16] MEDS: LEVALBUTEROL HCL NEB 1.25 MG/3 ML AMPUL NEB SCH ×3 (00:52→15:58)
[2019-07-16] MEDS: IPRATROPIUM BROMIDE 0.02% NEB 0.5 MG/2.5 ML AMPUL NEB SCH ×3 (00:52→15:58)
[2019-07-16] MEDS: BUSPIRONE HCL 10 MG TABLET PO SCH ×3 (05:29→21:10)
[2019-07-16] MEDS: HEPARIN SOD (PORCINE) 5,000 UNIT/ML 1 ML VIAL SUBCUT SCH ×3 (05:29→21:10)
[2019-07-16 06:47] LABS: VENOUS BLOOD HCO3 30.1 mmol/L (20-32); VENOUS BLOOD PCO2 56.1 mmHg (35-63); VENOUS BLOOD PH 7.35 (7.30-7.42)
[2019-07-16 06:49] LABS: HEMOGLOBIN 12.7 g/dL (13.5-17.0); MEAN CORPUSCULAR HEMOGLOBIN 30.9 pg (27.0-33.4); MEAN CORPUSCULAR HGB CONC 33.5 g/dL (32.0-36.0); MEAN CORPUSCULAR VOLUME 92 fl (80-97); PLATELET COUNT 218 10^3/uL (150-450); RED BLOOD COUNT 4.12 10^6/uL (4.35-5.55); RED CELL DISTRIBUTION WIDTH 13.3 % (11.5-14.0); WHITE BLOOD COUNT 10.9 10^3/uL (4.0-10.5)
[2019-07-16 07:12] LABS: ANION GAP 10 (5-19); BLOOD UREA NITROGEN 18 mg/dL (7-20); CALCIUM 9.2 mg/dL (8.4-10.2); CARBON DIOXIDE 27 mmol/L (22-30); CHLORIDE 101 mmol/L (98-107); GLUCOSE 141 mg/dL (75-110); POTASSIUM 4.5 mmol/L (3.6-5.0)
[2019-07-16] MEDS: BUDESONIDE NEB 0.5 MG/2 ML AMPUL NEB SCH ×2 (08:35→21:12)
[2019-07-16] MEDS: FAMOTIDINE 20 MG TABLET PO SCH ×2 (10:37→21:10)
[2019-07-16] MEDS: DOCUSATE SODIUM 100 MG CAPSULE PO SCH ×2 (10:37→17:56)
[2019-07-16] MEDS: LEVALBUTEROL HCL NEB 0.63 MG/3 ML AMPUL NEB PRN ×2 (14:36→21:12)
[2019-07-16] MEDS ORDERED: GUAIFENESIN SYRP 200 MG/10 ML UDC PO PRN (14:59)
--- NOTE | 2019-07-16 14:59 | PDOC PROGRESS REPORT ---
Subjective Progress Note for:: 07/16/19 Subjective:: This is a 63 year old male with COPD who presented progressive shortness of breath, cough and wheezing. He was found to be hypoxic and had bilateral wheezing and was admitted for COPD exacerbation. Patient initially was placed on BiPAP. No acute event overnight. He was weaned off BiPAP. Upon encounter, he saturating well on nasal cannula. He says he still short of breath but this has slightly improved from yesterday. He does continue to have bilateral wheezing on examination albeit slightly improved from yesterday. He denies chest pain. Reason For Visit: ACUTE REP FAILURE,COPD EXACERBATION Physical Exam Vital Signs: Temp Pulse Resp BP Pulse Ox 97.7 F 86 16 118/84 96 07/16/19 12:00 07/16/19 12:00 07/16/19 12:00 07/16/19 12:00 07/16/19 12:00 Intake & Output 07/15/19 07/16/19 07/17/19 06:59 06:59 06:59 Intake Total 138 1840 400 Output Total 500 200 Balance 138 1340 200 Weight 162 lb 160 lb 0.889 oz General appearance: PRESENT: no acute distress, well-developed, well-nourished Head exam: PRESENT: atraumatic, normocephalic Eye exam: PRESENT: conjunctiva pink, EOMI, PERRLA. ABSENT: scleral icterus Ear exam: PRESENT: normal external ear exam Mouth exam: PRESENT: moist, tongue midline Neck exam: ABSENT: carotid bruit, JVD, lymphadenopathy, thyromegaly Respiratory exam: PRESENT: rhonchi, wheezes. ABSENT: rales Cardiovascular exam: PRESENT: RRR. ABSENT: diastolic murmur, rubs, systolic murmur Pulses: PRESENT: normal dorsalis pedis pul GI/Abdominal exam: PRESENT: normal bowel sounds, soft. ABSENT: distended, guarding, mass, organolmegaly, rebound, tenderness Rectal exam: PRESENT: deferred Extremities exam: PRESENT: full ROM. ABSENT: calf tenderness, clubbing, pedal edema Neurological exam: PRESENT: alert, awake, oriented to person, oriented to place, oriented to time, oriented to situation, CN II-XII grossly intact. ABSENT: motor sensory deficit Results Laboratory Results: 07/16/19 06:20 07/16/19 06:20 07/15/19 07/16/19 07/16/19 16:45 06:20 06:20 WBC 10.9 H RBC 4.12 L Hgb 12.7 L Hct 38.0 MCV 92 MCH 30.9 MCHC 33.5 RDW 13.3 Plt Count 218 Carbonic Acid 1.72 H HCO3/H2CO3 Ratio 17:1 ABG pH 7.34 L ABG pCO2 57.2 H ABG pO2 86.1 ABG HCO3 30.1 H ABG O2 Saturation 95.8 ABG Base Excess 2.9 VBG pH VBG pCO2 VBG HCO3 VBG Base Excess FiO2 2L Sodium 137.7 Potassium 4.5 Chloride 101 Carbon Dioxide 27 Anion Gap 10 BUN 18 Creatinine 0.78 Est GFR ( Amer) > 60 Glucose 141 H Calcium 9.2 Magnesium 2.0 07/16/19 06:20 WBC RBC Hgb Hct MCV MCH MCHC RDW Plt Count Carbonic Acid HCO3/H2CO3 Ratio ABG pH ABG pCO2 ABG pO2 ABG HCO3 ABG O2 Saturation ABG Base Excess VBG pH 7.35 VBG pCO2 56.1 VBG HCO3 30.1 VBG Base Excess 3.0 FiO2 Sodium Potassium Chloride Carbon Dioxide Anion Gap BUN Creatinine Est GFR ( Amer) Glucose Calcium Magnesium 07/15/19 07/15/19 02:56 02:56 Creatine Kinase 188 H CK-MB (CK-2) 2.95 Troponin I < 0.012 NT-Pro-B Natriuret Pep 29 Impressions: Chest X-Ray 07/15/19 02:11 IMPRESSION: No acute cardiopulmonary findings. Assessment and Plan - Diagnosis (1) Acute and chronic respiratory failure with hypoxia Is this a current diagnosis for this admission?: Yes Plan: Secondary to COPD exacerbation. Weaned off BiPAP. Currently saturating on nasal cannula. (2) COPD exacerbation Is this a current diagnosis for this admission?: Yes Plan: Continue breathing treatments and IV steroids for now. (3) Tobacco abuse Is this a current diagnosis for this admission?: Yes Plan: Counseled on smoking cessation. - Plan Summary Summary: Patient will be admitted to the medical floor on telemetry monitoring. He will be treated with an aggressive pulmonary toilet utilizing nebulized Xopenex, Atrovent and Pulmicort. He will receive a short course of Solu-Medrol IV. He will be treated with BiPAP to maintain adequate oxygenation without CO2 retention. He will be continued on his usual medications for his chronic medical problems as appropriate. He will be given a regular diet and encouraged to take oral fluids. Will be followed with daily CBCs and metabolic profiles. He will use Nubain 5 to 10 mg IV every 3 hours on as-needed basis for pain control. Smoking cessation is advised and counseled briefly at the bedside. He will have a nicotine replacement patch available for his use, if desired. - Time Time Spent with patient: 25-34 minutes
[2019-07-16] MEDS: TAMSULOSIN HCL 0.4 MG CAP.SR.24H PO SCH (17:56)
[2019-07-16] MEDS: METHYLPREDNISOLONE INJ 40 MG/1 ML SDV IV SCH (17:58)
[2019-07-16] MEDS: NORMAL SALINE 1000 ML 1,000 ML IV PRN (21:19)
[2019-07-16] MEDS: NICOTINE 21 MG/24 HR PATCH.TD24 TD PRN (21:23)
[2019-07-17] MEDS: IPRATROPIUM BROMIDE 0.02% NEB 0.5 MG/2.5 ML AMPUL NEB SCH ×2 (00:05→08:38)
[2019-07-17] MEDS: LEVALBUTEROL HCL NEB 1.25 MG/3 ML AMPUL NEB SCH ×2 (00:05→08:38)
[2019-07-17] MEDS: BUSPIRONE HCL 10 MG TABLET PO SCH ×3 (05:55→21:34)
[2019-07-17] MEDS: METHYLPREDNISOLONE INJ 40 MG/1 ML SDV IV SCH ×2 (05:55→17:28)
[2019-07-17] MEDS: HEPARIN SOD (PORCINE) 5,000 UNIT/ML 1 ML VIAL SUBCUT SCH ×3 (05:55→21:38)
[2019-07-17 06:04] LABS: HEMATOCRIT 38.1 % (37.9-51.0); HEMOGLOBIN 12.7 g/dL (13.5-17.0); MEAN CORPUSCULAR HEMOGLOBIN 30.6 pg (27.0-33.4); MEAN CORPUSCULAR HGB CONC 33.2 g/dL (32.0-36.0); MEAN CORPUSCULAR VOLUME 92 fl (80-97); PLATELET COUNT 217 10^3/uL (150-450); RED BLOOD COUNT 4.14 10^6/uL (4.35-5.55); RED CELL DISTRIBUTION WIDTH 13.6 % (11.5-14.0); WHITE BLOOD COUNT 7.3 10^3/uL (4.0-10.5)
[2019-07-17 06:24] LABS: ANION GAP 5 (5-19); BLOOD UREA NITROGEN 17 mg/dL (7-20); CALCIUM 8.9 mg/dL (8.4-10.2); CARBON DIOXIDE 31 mmol/L (22-30); CHLORIDE 101 mmol/L (98-107); GLUCOSE 121 mg/dL (75-110); POTASSIUM 4.7 mmol/L (3.6-5.0)
[2019-07-17] MEDS: BUDESONIDE NEB 0.5 MG/2 ML AMPUL NEB SCH ×2 (08:38→20:04)
[2019-07-17] MEDS: NORMAL SALINE 1000 ML 1,000 ML IV PRN (11:04)
[2019-07-17] MEDS: FAMOTIDINE 20 MG TABLET PO SCH ×2 (11:04→21:34)
[2019-07-17] MEDS: DOCUSATE SODIUM 100 MG CAPSULE PO SCH ×2 (11:04→17:28)
[2019-07-17 11:21] LABS: ARTERIAL BLOOD BASE EXCESS 5.7 mmol/L; ARTERIAL BLOOD H2CO3 1.63 mmol/L (1.05-1.35); ARTERIAL BLOOD O2 SATURATION 94.8 % (94-98); ARTERIAL BLOOD PH 7.39 (7.35-7.45); ARTERIAL BLOOD PO2 75.3 mmHg (80-100); ARTERIAL BLOOD TOTAL CO2 33.7 mmol/L (23-27)
[2019-07-17 11:22] LABS: ARTERIAL BLOOD FIO2 2L
[2019-07-17] MEDS: IPRATROPIUM/ALBUTEROL 0.5-2.5 MG/3 ML AMPUL NEB SCH ×2 (14:53→20:04)
--- NOTE | 2019-07-17 14:54 | PDOC PROGRESS REPORT ---
Subjective Progress Note for:: 07/17/19 Subjective:: This is a 63 year old male with COPD who presented progressive shortness of breath, cough and wheezing. He was found to be hypoxic and had bilateral wheezing and was admitted for COPD exacerbation. Patient initially was placed on BiPAP. 07/16: He was weaned off BiPAP. Upon encounter, he saturating well on nasal cannula. He says he still short of breath but this has slightly improved from yesterday. He does continue to have bilateral wheezing on examination albeit slightly improved from yesterday. He denies chest pain. 07/17: No acute event overnight. He continues to saturate well off the BiPAP. He says he is still short of breath but this is slowly but gradually improving. Continues to have bilateral wheezing upon encounter this morning. Anticipate to require IV steroids for the next 48 hours. Reason For Visit: ACUTE REP FAILURE,COPD EXACERBATION Physical Exam Vital Signs: Temp Pulse Resp BP Pulse Ox 97.6 F 98 20 132/82 H 92 07/17/19 08:32 07/17/19 08:38 07/17/19 08:38 07/17/19 08:32 07/17/19 08:38 Intake & Output 07/16/19 07/17/19 07/18/19 06:59 06:59 06:59 Intake Total 2840 1160 1000 Output Total 500 700 Balance 2340 460 1000 Weight 160 lb 0.889 oz 159 lb 9.835 oz General appearance: PRESENT: no acute distress, well-developed, well-nourished Head exam: PRESENT: atraumatic, normocephalic Eye exam: PRESENT: conjunctiva pink, EOMI, PERRLA. ABSENT: scleral icterus Ear exam: PRESENT: normal external ear exam Mouth exam: PRESENT: moist, tongue midline Neck exam: ABSENT: carotid bruit, JVD, lymphadenopathy, thyromegaly Respiratory exam: PRESENT: rhonchi, wheezes. ABSENT: rales Cardiovascular exam: PRESENT: RRR. ABSENT: diastolic murmur, rubs, systolic murmur Pulses: PRESENT: normal dorsalis pedis pul GI/Abdominal exam: PRESENT: normal bowel sounds, soft. ABSENT: distended, guarding, mass, organolmegaly, rebound, tenderness Rectal exam: PRESENT: deferred Extremities exam: PRESENT: full ROM. ABSENT: calf tenderness, clubbing, pedal edema Neurological exam: PRESENT: alert, awake, oriented to person, oriented to place, oriented to time, oriented to situation, CN II-XII grossly intact. ABSENT: motor sensory deficit Results Laboratory Results: 07/17/19 05:31 07/17/19 05:31 07/17/19 07/17/19 07/17/19 05:31 05:31 05:31 WBC 7.3 RBC 4.14 L Hgb 12.7 L Hct 38.1 MCV 92 MCH 30.6 MCHC 33.2 RDW 13.6 Plt Count 217 Carbonic Acid HCO3/H2CO3 Ratio ABG pH ABG pCO2 ABG pO2 ABG HCO3 ABG O2 Saturation ABG Base Excess FiO2 Sodium 137.1 Potassium 4.7 Chloride 101 Carbon Dioxide 31 H Anion Gap 5 BUN 17 Creatinine 0.77 Est GFR ( Amer) > 60 Glucose 121 H Calcium 8.9 Magnesium 2.0 TSH 0.78 07/17/19 10:50 WBC RBC Hgb Hct MCV MCH MCHC RDW Plt Count Carbonic Acid 1.63 H HCO3/H2CO3 Ratio 19:1 ABG pH 7.39 ABG pCO2 54.0 H ABG pO2 75.3 L ABG HCO3 32.0 H ABG O2 Saturation 94.8 ABG Base Excess 5.7 FiO2 2L Sodium Potassium Chloride Carbon Dioxide Anion Gap BUN Creatinine Est GFR ( Amer) Glucose Calcium Magnesium TSH 07/15/19 07/15/19 02:56 02:56 Creatine Kinase 188 H CK-MB (CK-2) 2.95 Troponin I < 0.012 NT-Pro-B Natriuret Pep 29 Impressions: Chest X-Ray 07/15/19 02:11 IMPRESSION: No acute cardiopulmonary findings. Assessment and Plan - Diagnosis (1) Acute and chronic respiratory failure with hypoxia Is this a current diagnosis for this admission?: Yes Plan: Secondary to COPD exacerbation. Weaned off BiPAP. Currently saturating well on nasal cannula. (2) COPD exacerbation Is this a current diagnosis for this admission?: Yes Plan: Continue breathing treatments and IV steroids for now. (3) Tobacco abuse Is this a current diagnosis for this admission?: Yes Plan: Counseled on smoking cessation. - Plan Summary Summary: Patient will be admitted to the medical floor on telemetry monitoring. He will be treated with an aggressive pulmonary toilet utilizing nebulized Xopenex, Atrovent and Pulmicort. He will receive a short course of Solu-Medrol IV. He will be treated with BiPAP to maintain adequate oxygenation without CO2 retention. He will be continued on his usual medications for his chronic medical problems as appropriate. He will be given a regular diet and encouraged to take oral fluids. Will be followed with daily CBCs and metabolic profiles. He will use Nubain 5 to 10 mg IV every 3 hours on as-needed basis for pain control. Smoking cessation is advised and counseled briefly at the bedside. He will have a nicotine replacement patch available for his use, if desired. - Time Time Spent with patient: 25-34 minutes
[2019-07-17] MEDS: TAMSULOSIN HCL 0.4 MG CAP.SR.24H PO SCH (18:19)
[2019-07-17] MEDS: AZITHROMYCIN 250 MG TABLET PO SCH (21:34)
[2019-07-18] MEDS: ZOLPIDEM TARTRATE 5 MG TABLET PO PRN ×2 (00:46→23:20)
[2019-07-18] MEDS: IPRATROPIUM/ALBUTEROL 0.5-2.5 MG/3 ML AMPUL NEB SCH ×4 (01:35→20:39)
[2019-07-18] MEDS: METHYLPREDNISOLONE INJ 40 MG/1 ML SDV IV SCH ×2 (05:15→21:01)
[2019-07-18] MEDS: HEPARIN SOD (PORCINE) 5,000 UNIT/ML 1 ML VIAL SUBCUT SCH ×3 (05:15→21:58)
[2019-07-18] MEDS: BUSPIRONE HCL 10 MG TABLET PO SCH ×3 (05:15→21:57)
[2019-07-18 06:37] LABS: HEMATOCRIT 37.2 % (37.9-51.0); HEMOGLOBIN 12.6 g/dL (13.5-17.0); MEAN CORPUSCULAR HGB CONC 33.8 g/dL (32.0-36.0); MEAN CORPUSCULAR VOLUME 92 fl (80-97); PLATELET COUNT 216 10^3/uL (150-450); RED BLOOD COUNT 4.06 10^6/uL (4.35-5.55); RED CELL DISTRIBUTION WIDTH 13.6 % (11.5-14.0); WHITE BLOOD COUNT 7.7 10^3/uL (4.0-10.5)
[2019-07-18 06:52] LABS: BLOOD UREA NITROGEN 16 mg/dL (7-20); CALCIUM 8.9 mg/dL (8.4-10.2); CHLORIDE 99 mmol/L (98-107); GLUCOSE 114 mg/dL (75-110)
[2019-07-18 06:59] LABS: ANION GAP 5 (5-19); CARBON DIOXIDE 32 mmol/L (22-30)
[2019-07-18] MEDS: BUDESONIDE NEB 0.5 MG/2 ML AMPUL NEB SCH ×2 (08:54→20:39)
[2019-07-18] MEDS: NICOTINE 21 MG/24 HR PATCH.TD24 TD PRN (09:59)
[2019-07-18] MEDS: FAMOTIDINE 20 MG TABLET PO SCH ×2 (09:59→21:57)
[2019-07-18] MEDS: AZITHROMYCIN 250 MG TABLET PO SCH (09:59)
[2019-07-18] MEDS: DOCUSATE SODIUM 100 MG CAPSULE PO SCH ×2 (09:59→20:36)
--- NOTE | 2019-07-18 14:51 | PDOC PROGRESS REPORT ---
Subjective Progress Note for:: 07/18/19 Subjective:: This is a 63 year old male with COPD who presented progressive shortness of breath, cough and wheezing. He was found to be hypoxic and had bilateral wheezing and was admitted for COPD exacerbation. Patient initially was placed on BiPAP. 07/16: He was weaned off BiPAP. Upon encounter, he saturating well on nasal cannula. He says he still short of breath but this has slightly improved from yesterday. He does continue to have bilateral wheezing on examination albeit slightly improved from yesterday. He denies chest pain. 07/17: He continues to saturate well off the BiPAP. He says he is still short of breath but this is slowly but gradually improving. Continues to have bilateral wheezing upon encounter this morning. Anticipate to require IV steroids for the next 48 hours. 07/18: No acute event overnight. He says he feels much better today. He says his shortness of breath continue to improve and he is starting to return to his baseline. He has bilateral wheezing albeit this has also improved today. Reason For Visit: ACUTE RESPIRATORY FAILURE,COPD EXACERBATION Physical Exam Vital Signs: Temp Pulse Resp BP Pulse Ox 97.4 F 100 19 125/78 96 07/18/19 08:59 07/18/19 14:22 07/18/19 14:22 07/18/19 08:59 07/18/19 14:22 Intake & Output 07/17/19 07/18/19 07/19/19 06:59 06:59 06:59 Intake Total 1160 2800 Output Total 700 1980 Balance 460 820 Weight 159 lb 9.835 oz 159 lb 9.835 oz General appearance: PRESENT: no acute distress, well-developed, well-nourished Head exam: PRESENT: atraumatic, normocephalic Eye exam: PRESENT: conjunctiva pink, EOMI, PERRLA. ABSENT: scleral icterus Ear exam: PRESENT: normal external ear exam Mouth exam: PRESENT: moist, tongue midline Neck exam: ABSENT: carotid bruit, JVD, lymphadenopathy, thyromegaly Respiratory exam: PRESENT: rhonchi, wheezes. ABSENT: rales Cardiovascular exam: PRESENT: RRR. ABSENT: diastolic murmur, rubs, systolic murmur Pulses: PRESENT: normal dorsalis pedis pul GI/Abdominal exam: PRESENT: normal bowel sounds, soft. ABSENT: distended, guarding, mass, organolmegaly, rebound, tenderness Rectal exam: PRESENT: deferred Extremities exam: PRESENT: full ROM. ABSENT: calf tenderness, clubbing, pedal edema Neurological exam: PRESENT: alert, awake, oriented to person, oriented to place, oriented to time, oriented to situation, CN II-XII grossly intact. ABSENT: motor sensory deficit Results Laboratory Results: 07/18/19 06:22 07/18/19 06:22 07/18/19 07/18/19 06:22 06:22 WBC 7.7 RBC 4.06 L Hgb 12.6 L Hct 37.2 L MCV 92 MCH 31.0 MCHC 33.8 RDW 13.6 Plt Count 216 Sodium 136.2 L Potassium 4.0 Chloride 99 Carbon Dioxide 32 H Anion Gap 5 BUN 16 Creatinine 0.80 Est GFR ( Amer) > 60 Glucose 114 H Calcium 8.9 Magnesium 1.8 07/15/19 07/15/19 02:56 02:56 Creatine Kinase 188 H CK-MB (CK-2) 2.95 Troponin I < 0.012 NT-Pro-B Natriuret Pep 29 Impressions: Chest X-Ray 07/15/19 02:11 IMPRESSION: No acute cardiopulmonary findings. Assessment and Plan - Diagnosis (1) Acute and chronic respiratory failure with hypoxia Is this a current diagnosis for this admission?: Yes Plan: Improving. Secondary to COPD exacerbation. Weaned off BiPAP. Currently saturating well on nasal cannula. (2) COPD exacerbation Is this a current diagnosis for this admission?: Yes Plan: Improving. Continue breathing treatments and IV steroids for now. (3) Tobacco abuse Is this a current diagnosis for this admission?: Yes Plan: Counseled on smoking cessation. - Plan Summary Summary: Patient will be admitted to the medical floor on telemetry monitoring. He will be treated with an aggressive pulmonary toilet utilizing nebulized Xopenex, A trovent and Pulmicort. He will receive a short course of Solu-Medrol IV. He will be treated with BiPAP to maintain adequate oxygenation without CO2 retention. He will be continued on his usual medications for his chronic medical problems as appropriate. He will be given a regular diet and encouraged to take oral fluids. Will be followed with daily CBCs and metabolic profiles. He will use Nubain 5 to 10 mg IV every 3 hours on as-needed basis for pain control. Smoking cessation is advised and counseled briefly at the bedside. He will have a nicotine replacement patch available for his use, if desired. - Time Time Spent with patient: 25-34 minutes
[2019-07-18] MEDS: TAMSULOSIN HCL 0.4 MG CAP.SR.24H PO SCH (21:05)
[2019-07-19] MEDS: IPRATROPIUM/ALBUTEROL 0.5-2.5 MG/3 ML AMPUL NEB SCH ×4 (02:15→20:15)
[2019-07-19] MEDS: LEVALBUTEROL HCL NEB 0.63 MG/3 ML AMPUL NEB PRN (04:23)
[2019-07-19] MEDS: HEPARIN SOD (PORCINE) 5,000 UNIT/ML 1 ML VIAL SUBCUT SCH ×3 (05:16→21:17)
[2019-07-19] MEDS: BUSPIRONE HCL 10 MG TABLET PO SCH ×3 (05:16→21:16)
[2019-07-19] MEDS: METHYLPREDNISOLONE INJ 40 MG/1 ML SDV IV SCH ×2 (05:16→16:59)
[2019-07-19] MEDS: BUDESONIDE NEB 0.5 MG/2 ML AMPUL NEB SCH ×2 (08:43→20:15)
[2019-07-19] MEDS: AZITHROMYCIN 250 MG TABLET PO SCH (10:02)
[2019-07-19] MEDS: FAMOTIDINE 20 MG TABLET PO SCH ×2 (10:02→21:16)
[2019-07-19] MEDS: DOCUSATE SODIUM 100 MG CAPSULE PO SCH ×2 (10:02→16:59)
--- NOTE | 2019-07-19 14:19 | PDOC PROGRESS REPORT ---
Subjective Progress Note for:: 07/19/19 Subjective:: This is a 63 year old male with COPD who presented progressive shortness of breath, cough and wheezing. He was found to be hypoxic and had bilateral wheezing and was admitted for COPD exacerbation. Patient initially was placed on BiPAP. 07/16: He was weaned off BiPAP. Upon encounter, he saturating well on nasal cannula. He says he still short of breath but this has slightly improved from yesterday. He does continue to have bilateral wheezing on examination albeit slightly improved from yesterday. He denies chest pain. 07/17: He continues to saturate well off the BiPAP. He says he is still short of breath but this is slowly but gradually improving. Continues to have bilateral wheezing upon encounter this morning. Anticipate to require IV steroids for the next 48 hours. 07/18: He says he feels much better today. He says his shortness of breath continue to improve and he is starting to return to his baseline. He has bilateral wheezing albeit this has also improved today. 07/19: No acute event overnight. He had slightly increased wheezing upon encounter this morning. Overall, he says his shortness of breath continue to improve. Reason For Visit: ACUTE RESPIRATORY FAILURE,COPD EXACERBATION Physical Exam Vital Signs: Temp Pulse Resp BP Pulse Ox 98.0 F 85 18 124/82 94 07/19/19 11:25 07/19/19 11:25 07/19/19 11:25 07/19/19 11:25 07/19/19 11:25 Intake & Output 07/18/19 07/19/19 07/20/19 06:59 06:59 06:59 Intake Total 3800 1530 480 Output Total 1980 1075 400 Balance 1820 455 80 Weight 159 lb 9.835 oz 132 lb 7.965 oz General appearance: PRESENT: no acute distress, well-developed, well-nourished Head exam: PRESENT: atraumatic, normocephalic Eye exam: PRESENT: conjunctiva pink, EOMI, PERRLA. ABSENT: scleral icterus Ear exam: PRESENT: normal external ear exam Mouth exam: PRESENT: moist, tongue midline Neck exam: ABSENT: carotid bruit, JVD, lymphadenopathy, thyromegaly Respiratory exam: PRESENT: rhonchi, wheezes. ABSENT: rales Cardiovascular exam: PRESENT: RRR. ABSENT: diastolic murmur, rubs, systolic murmur Pulses: PRESENT: normal dorsalis pedis pul GI/Abdominal exam: PRESENT: normal bowel sounds, soft. ABSENT: distended, guarding, mass, organolmegaly, rebound, tenderness Rectal exam: PRESENT: deferred Extremities exam: PRESENT: full ROM. ABSENT: calf tenderness, clubbing, pedal e blu Neurological exam: PRESENT: alert - He will be, awake, oriented to person, oriented to place, oriented to time, oriented to situation, CN II-XII grossly intact. ABSENT: motor sensory deficit Results Laboratory Results: 07/18/19 06:22 07/18/19 06:22 07/15/19 07/15/19 02:56 02:56 Creatine Kinase 188 H CK-MB (CK-2) 2.95 Troponin I < 0.012 NT-Pro-B Natriuret Pep 29 Impressions: Chest X-Ray 07/15/19 02:11 IMPRESSION: No acute cardiopulmonary findings. Assessment and Plan - Diagnosis (1) Acute and chronic respiratory failure with hypoxia Is this a current diagnosis for this admission?: Yes Plan: Improving. Secondary to COPD exacerbation. Weaned off BiPAP. Currently saturating well on nasal cannula. (2) COPD exacerbation Is this a current diagnosis for this admission?: Yes Plan: Improving. Continue breathing treatments and IV steroids for now. (3) Tobacco abuse Is this a current diagnosis for this admission?: Yes Plan: Counseled on smoking cessation. - Plan Summary Summary: Patient will be admitted to the medical floor on telemetry monitoring. He will be treated with an aggressive pulmonary toilet utilizing nebulized Xopenex, Atrovent and Pulmicort. He will receive a short course of Solu-Medrol IV. He will be treated with BiPAP to maintain adequate oxygenation without CO2 retention. He will be continued on his usual medications for his chronic medical problems as appropriate. He will be given a regular diet and encouraged to take oral fluids. Will be followed with daily CBCs and metabolic profiles. He will use Nubain 5 to 10 mg IV every 3 hours on as-needed basis for pain control. Smoking cessation is advised and counseled briefly at the bedside. He will have a nicotine replacement patch available for his use, if desired. - Time Time Spent with patient: 15-24 minutes
[2019-07-19] MEDS: TAMSULOSIN HCL 0.4 MG CAP.SR.24H PO SCH (16:59)
[2019-07-20] MEDS: IPRATROPIUM/ALBUTEROL 0.5-2.5 MG/3 ML AMPUL NEB SCH ×3 (02:27→13:36)
[2019-07-20] MEDS: ZOLPIDEM TARTRATE 5 MG TABLET PO PRN (02:33)
[2019-07-20] MEDS: HEPARIN SOD (PORCINE) 5,000 UNIT/ML 1 ML VIAL SUBCUT SCH (05:24)
[2019-07-20] MEDS: BUSPIRONE HCL 10 MG TABLET PO SCH (05:25)
[2019-07-20] MEDS: NICOTINE 21 MG/24 HR PATCH.TD24 TD PRN (07:55)
[2019-07-20] MEDS: BUDESONIDE NEB 0.5 MG/2 ML AMPUL NEB SCH (08:59)
[2019-07-20] MEDS: AZITHROMYCIN 250 MG TABLET PO SCH (09:42)
[2019-07-20] MEDS: FAMOTIDINE 20 MG TABLET PO SCH (09:42)
[2019-07-20] MEDS: DOCUSATE SODIUM 100 MG CAPSULE PO SCH (09:43)
[2019-07-20] MEDS ORDERED: PREDNISONE 20 MG TABLET PO SCH (10:00)
[2019-07-20] MEDS ORDERED: INFLUENZA QUAD (6MOS+) 2019-20 VAC 0.5 ML SYR IM ONE (11:36)
[2019-07-20 11:41] VITALS: BP 121/84
--- NOTE | 2019-07-20 15:55 | PDOC DISCHARGE SUMMARY ---
Impression - Admit/DC Date/PCP Admission Date/Primary Care Provider: 07/17/19 15:23 [facility] Discharge Date: 07/20/19 - Discharge Diagnosis (1) Acute and chronic respiratory failure with hypoxia Is this a current diagnosis for this admission?: Yes (2) COPD exacerbation Is this a current diagnosis for this admission?: Yes (3) Tobacco abuse Is this a current diagnosis for this admission?: Yes - Assessment Summary: Patient will be admitted to the medical floor on telemetry monitoring. He will be treated with an aggressive pulmonary toilet utilizing nebulized Xopenex, Atrovent and Pulmicort. He will receive a short course of Solu-Medrol IV. He will be treated with BiPAP to maintain adequate oxygenation without CO2 retention. He will be continued on his usual medications for his chronic medical problems as appropriate. He will be given a regular diet and encouraged to take oral fluids. Will be followed with daily CBCs and metabolic profiles. He will use Nubain 5 to 10 mg IV every 3 hours on as-needed basis for pain control. Smoking cessation is advised and counseled briefly at the bedside. He will have a nicotine replacement patch available for his use, if desired. - Additional Information Resuscitation Status: Full Code Discharge Diet: As Tolerated Discharge Activity: Activity As Tolerated, Balance Activity w/Rest Referrals: ANH DE JESUS MD [ACTIVE STAFF] - [facility] [Primary Care Provider] - Follow up as needed Prescriptions: Buspirone HCl [Buspar 30 mg Tablet] 1 tab PO DAILY #30 tab Prednisone [Deltasone 20 mg Tablet] 40 mg PO BID 5 Days #20 tablet Prednisone [Deltasone 20 mg Tablet] 40 mg PO BID #10 tablet Budesonide/Formoterol Fumarate [Symbicort HFA 160-4.5 mcg Inhaler 6 gm] 1 puff IH BID #1 inhaler Home Medications: Aspirin [Aspirin 325 mg Tablet] 325 mg PO DAILYP PRN 07/15/19 Cholecalciferol (Vitamin D3) [Vitamin D3 1000 Unit Tablet] 1,000 unit PO DAILY 07/15/19 Ipratropium/Albuterol Sulfate [Duoneb 3 ml Ampul] 3 ml NEB RTQ6HP PRN 07/15/19 Levalbuterol Tartrate [Xopenex Hfa] 2 puff IH Q6HP PRN 07/15/19 Terazosin HCl [Hytrin] 10 mg PO DAILY 07/15/19 Tiotropium [place]verse [Spiriva Respimat] 2 puff IH DAILY 07/15/19 Budesonide/Formoterol Fumarate [Symbicort HFA 160-4.5 mcg Inhaler 6 gm] 1 puff IH BID #1 inhaler 07/20/19 Buspirone HCl [Buspar 30 mg Tablet] 1 tab PO DAILY #30 tab 07/20/19 Prednisone [Deltasone 20 mg Tablet] 40 mg PO BID #10 tablet 07/20/19 Prednisone [Deltasone 20 mg Tablet] 40 mg PO BID 5 Days #20 tablet 07/20/19 History of Present Illiness History of Present Illness: Admitting hospitalist's H&P: JOSE FERNANDO is a 63 year old male who presents the emergency room with a one-week history of dyspnea. Patient admits that over the last week he has experienced gradually worsening dyspnea becoming much more severe over the last 3 days. His dyspnea worsens with exertion or activity and has been accompanied by a productive cough (clear to whitish sputum). He denies other associated or accompanying signs and symptoms. He admits numerous prior similar episodes with exacerbations of his chronic obstructive pulmonary disease. He has not identified any additional aggravating or ameliorating factors for his dyspnea. In the emergency room he was found to have hypoxia and markedly increased work of breathing resulting in his being placed on BiPAP with excellent results. His laboratory and radiographic evaluation was unremarkable. He was subsequently admitted to the hospital for further evaluation and treatment. Hospital Course Hospital Course: This is a 63 year old male with COPD on 2L of home O2 who presented with progressive shortness of breath, cough and wheezing. He was found to be hypoxic and had bilateral wheezing and was admitted for COPD exacerbation. Patient initially was placed on BiPAP. Patient was started on IV steroids, azithromycin and scheduled breathing treatments. He was eventually weaned off BiPAP. He slowly but gradually improved with above treatments. He did return to his baseline. He will be discharged on 5 more days of prednisone. He will continue his COPD inhaler regimen at home. He will resume using his home O2. He did request to be continued on BuSpar to aid with his smoking cessation. He says he will discuss Chantix with his PCP later when he follows up with him. Physical Exam Vital Signs: Temp Pulse Resp BP Pulse Ox 97.5 F 90 16 121/84 93 07/20/19 11:38 07/20/19 13:36 07/20/19 13:36 07/20/19 11:38 07/20/19 13:36 Intake & Output 07/19/19 07/20/19 07/21/19 06:59 06:59 06:59 Intake Total 1530 980 480 Output Total 1075 700 Balance 455 280 480 Weight 132 lb 7.965 oz 129 lb 6.581 oz Results Laboratory Results: WBC 7.7 10^3/uL (4.0-10.5) 07/18/19 06:22 RBC 4.06 10^6/uL (4.35-5.55) L 07/18/19 06:22 Hgb 12.6 g/dL (13.5-17.0) L 07/18/19 06:22 Hct 37.2 % (37.9-51.0) L 07/18/19 06:22 MCV 92 fl (80-97) 07/18/19 06:22 MCH 31.0 pg (27.0-33.4) 07/18/19 06:22 MCHC 33.8 g/dL (32.0-36.0) 07/18/19 06:22 RDW 13.6 % (11.5-14.0) 07/18/19 06:22 Plt Count 216 10^3/uL (150-450) 07/18/19 06:22 Lymph % (Auto) 36.0 % (13-45) 07/15/19 02:56 [place] % (Auto) 6.9 % (3-13) 07/15/19 02:56 Eos % (Auto) 7.7 % (0-6) H 07/15/19 02:56 Baso % (Auto) 0.3 % (0-2) 07/15/19 02:56 Absolute Neuts (auto) 3.4 10^3/uL (1.7-8.2) 07/15/19 02:56 Absolute Lymphs (auto) 2.5 10^3/uL (0.5-4.7) 07/15/19 02:56 Absolute Monos (auto) 0.5 10^3/uL (0.1-1.4) 07/15/19 02:56 Absolute Eos (auto) 0.5 10^3/uL (0.0-0.6) 07/15/19 02:56 Absolute Basos (auto) 0.0 10^3/uL (0.0-0.2) 07/15/19 02:56 Seg Neutrophils % 49.1 % (42-78) 07/15/19 02:56 D-Dimer 0.37 ug/mL (0.00-0.50) 07/19/19 09:38 Carbonic Acid 1.63 mmol/L (1.05-1.35) H 07/17/19 10:50 HCO3/H2CO3 Ratio 19:1 07/17/19 10:50 ABG pH 7.39 (7.35-7.45) 07/17/19 10:50 ABG pCO2 54.0 mmHg (35-45) H 07/17/19 10:50 ABG pO2 75.3 mmHg (80-100) L 07/17/19 10:50 ABG HCO3 32.0 mmol/L (20-24) H 07/17/19 10:50 ABG Total CO2 33.7 mmol/L (23-27) H 07/17/19 10:50 ABG O2 Saturation 94.8 % (94-98) 07/17/19 10:50 ABG Base Excess 5.7 mmol/L 07/17/19 10:50 VBG pH 7.35 (7.30-7.42) 07/16/19 06:20 VBG pCO2 56.1 mmHg (35-63) 07/16/19 06:20 VBG HCO3 30.1 mmol/L (20-32) 07/16/19 06:20 VBG Base Excess 3.0 mmol/L 07/16/19 06:20 FiO2 2L 07/17/19 10:50 Sodium 136.2 mmol/L (137-145) L 07/18/19 06:22 Potassium 4.0 mmol/L (3.6-5.0) 07/18/19 06:22 Chloride 99 mmol/L (98-107) 07/18/19 06:22 Carbon Dioxide 32 mmol/L (22-30) H 07/18/19 06:22 Anion Gap 5 (5-19) 07/18/19 06:22 BUN 16 mg/dL (7-20) 07/18/19 06:22 Creatinine 0.80 mg/dL (0.52-1.25) 07/18/19 06:22 Est GFR ( Amer) > 60 (>60) 07/18/19 06:22 Est GFR (MDRD) Non-Af > 60 (>60) 07/18/19 06:22 Glucose 114 mg/dL (75-110) H 07/18/19 06:22 Calcium 8.9 mg/dL (8.4-10.2) 07/18/19 06:22 Magnesium 1.8 mg/dL (1.6-2.3) 07/18/19 06:22 Total Bilirubin 0.4 mg/dL (0.2-1.3) 07/15/19 02:56 Direct Bilirubin 0.2 mg/dL (0.0-0.4) 07/15/19 02:56 Neonat Total Bilirubin Not Reportable 07/15/19 02:56 Neonat Direct Bilirubin Not Reportable 07/15/19 02:56 Neonat Indirect Bili Not Reportable 07/15/19 02:56 AST 19 U/L (17-59) 07/15/19 02:56 ALT 10 U/L (<50) 07/15/19 02:56 Alkaline Phosphatase 62 U/L (38-126) 07/15/19 02:56 Creatine Kinase 188 U/L (55-170) H 07/15/19 02:56 CK-MB (CK-2) 2.95 ng/mL (<4.55) 07/15/19 02:56 Troponin I < 0.012 ng/mL 07/15/19 02:56 NT-Pro-B Natriuret Pep 29 pg/mL (<125) 07/15/19 02:56 Total Protein 7.7 g/dL (6.3-8.2) 07/15/19 02:56 Albumin 4.2 g/dL (3.5-5.0) 07/15/19 02:56 TSH 0.78 uIU/mL (0.47-4.68) 07/17/19 05:31 Urine Color YELLOW 07/15/19 07:33 Urine Appearance CLEAR 07/15/19 07:33 Urine pH 5.0 (5.0-9.0) 07/15/19 07:33 Ur Specific [place] 1.028 07/15/19 07:33 Urine Protein NEGATIVE mg/dL (NEGATIVE) 07/15/19 07:33 Urine Glucose (UA) NEGATIVE mg/dL (NEGATIVE) 07/15/19 07:33 Urine Ketones NEGATIVE mg/dL (NEGATIVE) 07/15/19 07:33 Urine Blood NEGATIVE (NEGATIVE) 07/15/19 07:33 Urine Nitrite NEGATIVE (NEGATIVE) 07/15/19 07:33 Urine Bilirubin NEGATIVE (NEGATIVE) 07/15/19 07:33 Urine Urobilinogen NEGATIVE mg/dL (<2.0) 07/15/19 07:33 Ur Leukocyte Esterase NEGATIVE (NEGATIVE) 07/15/19 07:33 Urine WBC (Auto) 1 /HPF 07/15/19 07:33 Urine RBC (Auto) 1 /HPF 07/15/19 07:33 U Hyaline Cast (Auto) 5 /LPF 07/15/19 07:33 Squamous Epi Cells Auto 1 /HPF 07/15/19 07:33 Urine Mucus (Auto) RARE /LPF 07/15/19 07:33 Urine Ascorbic Acid NEGATIVE (NEGATIVE) 07/15/19 07:33 07/15/19 02:56 CK-MB (CK-2) 2.95 Troponin I < 0.012 NT-Pro-B Natriuret Pep 29 Impressions: Chest X-Ray 07/15/19 02:11 IMPRESSION: No acute cardiopulmonary findings. Stroke Is this a Stroke Patient?: No Acute Heart Failure - Is this a Heart Failure Patient?: No
== END 2019-07-20 14:05 | disposition home or self-care (01) | DRG 189 ==
LOC: ER 02:09 → INTOOBSV 04:52 → EH 04:52 → 3S 15:32 → OBSVTOIN 07-17 15:23
PROVIDERS: ADMIT Emergency Medicine; ATTEND Emergency Medicine
PROC: 5A09457 Assistance with Respiratory Ventilation, 24-96 Consecutive Hours, Continuous Positive Airway Pressure (ICD-10-PCS; principal; 2019-07-15)
DX: J96.21 Acute and chronic respiratory failure with hypoxia (principal); J44.1 Chronic obstructive pulmonary disease with (acute) exacerbation; N40.1 Benign prostatic hyperplasia with lower urinary tract symptoms; M54.2 Cervicalgia; F41.3 Other mixed anxiety disorders; F17.200 Nicotine dependence, unspecified, uncomplicated; Z79.82 Long term (current) use of aspirin; Z79.899 Other long term (current) drug therapy; Z99.81 Dependence on supplemental oxygen
CPT/HCPCS: 36415; 36600; 71045; 80048; 80053; 81001; 82550; 82553; 82803; 83735; 83880; 84443; 84484; 85025; 85027; 85379; 93005; 93010; 94640; 94660; 94799; 96365; 96375; 99285; G0378; J1644; J2270; J2920; J3475; J3490; J7030; J7120; J7512; J7614; J7620

== ENCOUNTER 2019-08-12 05:55 | Inpatient (IN) | payer OTHER ==
[2019-08-12] MEDS ORDERED: CEFTRIAXONE 1 GM/D5W RTU 1 GM/50 ML RTUPB IV ONE (06:13)
[2019-08-12] MEDS ORDERED: AZITHROMYCIN 250 MG TABLET PO ONE (06:16)
--- NOTE | 2019-08-12 06:47 | ER Document Report ---
ED General - General Chief Complaint: Shortness Of Breath Stated Complaint: DIFFICULTY BREATHING Time Seen by Provider: 08/12/19 06:13 Primary Care Provider: LIZBET GUY PA [NO LOCAL MD] - Follow up as needed Mode of Arrival: Medic Information source: Patient TRAVEL OUTSIDE OF THE [place] IN LAST 30 DAYS: No - HPI Notes: Patient presents with shortness of breath. He states this is been going on for approximately 3 days. He states it is worse with exertion better with rest. It is been severe. His shortness of breath has been constant. He is also had a dry cough. Some nonspecific fever and chills. He states that he is a smoker. No significant chest pain. No nausea or vomiting. He denies any previous history of congestive heart failure. No radiation of the symptoms. - Related Data Allergies/Adverse Reactions: iodine [Iodine] Allergy (Verified 07/15/19 08:00) Shellfish * [Shellfish] Allergy (Verified 07/15/19 08:00) shellfish derived Allergy (Verified 07/15/19 08:00) Home Medications: to be completed Past Medical History - General Information source: Patient - Social History Smoking Status: Current Every Day Smoker Frequency of alcohol use: None Drug Abuse: None Family History: CAD, COPD. denies: DM, Hypertension, Malignancy Patient has suicidal ideation: No Patient has homicidal ideation: No - Past Medical History Cardiac Medical History: Reports: Hx Congestive Heart Failure Denies: Hx Atrial Fibrillation, Hx Coronary Artery Disease, Hx DVT, Hx Heart Attack, Hx Hypercholesterolemia, Hx Hypertension, Hx Pulmonary Embolism Pulmonary Medical History: Reports: Hx Bronchitis, Hx COPD, Hx Pneumonia, Hx Respiratory Failure - Chronic respiratory failure on O2 per nasal cannula at 2 L/min continuously, Hx Tuberculosis - Treatment in 1991 Denies: Hx Sleep Apnea Neurological Medical History: Denies: Hx Seizures Endocrine Medical History: Denies: Hx Diabetes Mellitus Type 1, Hx Diabetes Mellitus Type 2, Hx Hyperthyroidism, Hx Hypothyroidism Renal/ Medical History: Reports: Hx Benign Prostatic Hyperplasia. Denies: Hx Peritoneal Dialysis Malignancy Medical History: Denies Hx Lung Cancer GI Medical History: Reports: Hx Gastroesophageal Reflux Disease. Denies: Hx Cirrhosis, Hx Crohn's Disease, Hx Hepatitis, Hx Ulcerative Colitis Musculoskeletal Medical History: Reports Hx Arthritis, Denies Hx Gout Skin Medical History: Denies Hx Eczema, Denies Hx Psoriasis Psychiatric Medical History: Reports: Hx Depression Infectious Medical History: Denies: Hx Hepatitis Past Surgical History: Denies: Hx Appendectomy, Hx Bowel Surgery, Hx Cholecystectomy, Hx Coronary Artery Bypass Graft, Hx Gastric Bypass Surgery, Hx Herniorrhaphy, Hx Pacemaker, Hx Tonsillectomy - Immunizations Hx Diphtheria, Pertussis, Tetanus Vaccination: Yes Hx Pneumococcal Vaccination: 03/12/12 Review of Systems - Review of Systems Constitutional: Malaise, Weakness Cardiovascular: Heart racing, Dyspnea Respiratory: Cough, Short of breath -: Yes All other systems reviewed and negative Physical Exam - Vital signs Vitals: Pulse Ox 90 L 08/12/19 06:04 Interpretation: Hypoxic - General General appearance: Alert, Anxious - HEENT Head: Normocephalic, Atraumatic Eyes: Normal Pupils: PERRL - Respiratory Respiratory status: Respiratory distress, Labored, Tachypnea Chest status: Nontender Breath sounds: Decreased air movement, Wheezing Chest palpation: Normal - Cardiovascular Rhythm: Tachycardia Heart sounds: Normal auscultation Murmur: No - Abdominal Inspection: Normal Distension: No distension Bowel sounds: Normal Tenderness: Nontender Organomegaly: No organomegaly - Back Back: Normal, Nontender - Extremities General upper extremity: Normal inspection, Nontender, Normal color, Normal ROM, Normal temperature General lower extremity: Normal inspection, Nontender, Normal color, Normal ROM, Normal temperature, Normal weight bearing. No: Vicky's sign - Neurological Neuro grossly intact: Yes Cognition: Normal Orientation: AAOx4 [place] Coma Scale Eye Opening: Spontaneous [address] Coma Scale Verbal: Oriented [place] Coma Scale Motor: Obeys Commands [address] Coma Scale Total: 15 Speech: Normal Motor strength normal: LUE, RUE, LLE, RLE Sensory: Normal - Psychological Associated symptoms: Normal affect, Normal mood - Skin Skin Temperature: Warm Skin Moisture: Dry Skin Color: Normal Course - Re-evaluation Re-evalutation: 08/12/19 07:50 Patient presents with shortness of breath. Arrived with tachypnea hypoxia and tachycardia. He received multiple treatments and steroids in route. I placed the patient on BiPAP and gave him antibiotics. He is significantly improved. Wheezing and breath sounds are improved as well. Heart rate is now in the 80s. Blood pressures been stable. O2 saturations on BiPAP are approximately 98%. Patient's chest x-ray shows an opacity in the right base. I am unsure if this is new or chronic as I cannot find an old x-ray for comparison. I have discussed admission with the hospitalist. - Vital Signs Vital signs: Temp Pulse Resp BP Pulse Ox 97.6 F 99 23 H 122/87 H 100 08/12/19 06:11 08/12/19 06:11 08/12/19 06:15 08/12/19 06:12 08/12/19 06:18 - Laboratory Result Diagrams: 08/12/19 06:42 08/12/19 06:42 Laboratory results interpreted by me: 08/12/19 08/12/19 06:42 06:42 RBC 4.14 L Hgb 12.9 L Lactic Acid (Sepsis) 0.6 L - Diagnostic Test Radiology reviewed: Image reviewed, Reports reviewed - EKG Interpretation by Me EKG shows normal: Sinus rhythm Rate: Tachycardia - 102 Rhythm: NSR [place]/QRS: No: Right axis deviation, Left axis deviation Discharge - Discharge Clinical Impression: COPD exacerbation Condition: Fair Disposition: ADMITTED INPATIENT Admitting Provider: Gibson (Hospitalist) Unit Admitted: Medical Floor Referrals: LIZBET GUY PA [NO LOCAL MD] - Follow up as needed
[2019-08-12 07:04] LABS: ABSOLUTE EOSINOPHILS # (AUTO) 0.2 10^3/uL (0.0-0.6); ABSOLUTE LYMPHOCYTES (AUTO) 1.2 10^3/uL (0.5-4.7); ABSOLUTE MONOCYTES (AUTO) 0.5 10^3/uL (0.1-1.4); ABSOLUTE NEUT (AUTO) 2.9 10^3/uL (1.7-8.2); BASOPHILS % (AUTO) 0.4 % (0-2); EOSINOPHILS % (AUTO) 4.2 % (0-6); HEMATOCRIT 38.6 % (37.9-51.0); HEMOGLOBIN 12.9 g/dL (13.5-17.0); LYMPHOCYTES % (AUTO) 25.3 % (13-45); MEAN CORPUSCULAR HEMOGLOBIN 31.2 pg (27.0-33.4); MEAN CORPUSCULAR HGB CONC 33.5 g/dL (32.0-36.0); MEAN CORPUSCULAR VOLUME 93 fl (80-97); MONOCYTES % (AUTO) 9.9 % (3-13); PLATELET COUNT 213 10^3/uL (150-450); RED BLOOD COUNT 4.14 10^6/uL (4.35-5.55); SEGMENTED NEUTROPHILS % (AUTO) 60.2 % (42-78); TOTAL CELLS COUNTED % (AUTO) 100 %; WHITE BLOOD COUNT 4.8 10^3/uL (4.0-10.5)
[2019-08-12 07:08] LABS: INTERNATIONAL RATION (INR) 0.99; PROTHROMBIN TIME 13.1 SEC (11.4-15.4)
[2019-08-12 07:39] LABS: ALBUMIN 3.6 g/dL (3.5-5.0); ALKALINE PHOSPHATASE 57 U/L (38-126); ANION GAP 8 (5-19); ASPARTATE AMINO TRANSFERASE 19 U/L (17-59); BILIRUBIN,DIRECT 0.1 mg/dL (0.0-0.4); BILIRUBIN,TOTAL 0.3 mg/dL (0.2-1.3); BLOOD UREA NITROGEN 9 mg/dL (7-20); CALCIUM 8.8 mg/dL (8.4-10.2); CARBON DIOXIDE 30 mmol/L (22-30); CHLORIDE 101 mmol/L (98-107); GLUCOSE 106 mg/dL (75-110); POTASSIUM 4.2 mmol/L (3.6-5.0); TOTAL PROTEIN 6.8 g/dL (6.3-8.2)
--- NOTE | 2019-08-12 08:21 | RADIOLOGY REPORT (SQ) ---
EXAM DESCRIPTION: CHEST SINGLE VIEW COMPLETED DATE/TIME: 08/12/2019 7:09 am REASON FOR STUDY: cough/sob COMPARISON: 07/15/2019 EXAM PARAMETERS: NUMBER OF VIEWS: One view. TECHNIQUE: Single frontal radiographic view of the chest acquired. RADIATION DOSE: NA LIMITATIONS: None. FINDINGS: LUNGS AND PLEURA: There is hyperexpansion. No consolidation or effusions. MEDIASTINUM AND HILAR STRUCTURES: No masses. Contour normal. HEART AND VASCULAR STRUCTURES: Heart normal in size. Normal vasculature. BONES: No acute findings. HARDWARE: None in the chest. OTHER: No other significant finding. IMPRESSION: Hyperexpansion otherwise negative chest. TECHNICAL DOCUMENTATION: JOB ID: [id number] [employer]- All Rights Reserved Reading location - IP/workstation name: [email or web address]
[2019-08-12] MEDS ORDERED: IPRATROPIUM/ALBUTEROL 0.5-2.5 MG/3 ML AMPUL NEB PRN (09:09)
[2019-08-12] MEDS ORDERED: ACETAMINOPHEN 325 MG TABLET PO PRN (09:09)
--- NOTE | 2019-08-12 09:27 | PDOC H&P ---
History of Present Illness Admission Date/PCP: 08/12/19 08:[facility] Patient complains of: dyspnea History of Present Illness: JOSE FERNANDO is a 63 year old male with a history of COPD, who presents to the hospital with complaints of dyspnea for the past 3 days. Patient states that symptoms have been worsening. Denies any orthopnea or PND. Acknowledges mild nonproductive cough with only very mild changes in sputum production. Denies any rhinorrhea or congestion. Denies sick contacts. Denies noncompliance with inhalers. Denies any fevers or chills. Patient's currently still smokes despite being on Chantix. Patient does acknowledge frequent ad missions for COPD. Denies using illicit drugs. In the emergency department, patient was noted to be very tachypneic and having work of breathing and subsequently patient placed on BiPAP by the ER physician. Hospitalist service consulted for admission. Past Medical History Cardiac Medical History: Denies: Atrial Fibrillation, Coronary Artery Disease, DVT, Myocardial Infarction, Hyperlipidema, Hypertension, Pulmonary Embolism Pulmonary Medical History: Reports: Bronchitis, Chronic Obstructive Pulmonary Disease (COPD), Pneumonia, Respiratory Failure - Chronic respiratory failure on O2 per nasal cannula at 2 L/min continuously, Tuberculosis - Treatment in 1991 Denies: Sleep Apnea Neurological Medical History: Denies: Seizures Endocrine Medical History: Denies: Diabetes Mellitus Type 1, Diabetes Mellitus Type 2, Hyperthyroidism, Hypothyroidism Malignancy Medical History: Denies: Breast Cancer, Cervical Cancer, Lung Cancer, Ovarian Cancer GI Medical History: Reports: Gastroesophageal Reflux Disease Denies: Cirrhosis, Crohn's Disease, Hepatitis, Ulcerative Colitis Musculoskeltal Medical History: Reports: Arthritis Denies: Gout Skin Medical History: Denies: Eczema, Psoriasis Psychiatric Medical History: Reports: Depression Hematology: Denies: Anemia, Bleeding Tendencies Past Surgical History Past Surgical History: Denies: Appendectomy, Cholecystectomy, Coronary Artery Bypass Graft, Gastric Bypass Surgery, Herniorrhaphy, Pacemaker, Tonsillectomy Social History Smoking Status: Current Every Day Smoker Frequency of Alcohol Use: Occasional Hx Recreational Drug Use: Yes Drugs: Cocaine - Last use 9 months ago Hx Prescription Drug Abuse: No - Advance Directive Resuscitation Status: Full Code Family History Family History: CAD, COPD. denies: DM, Hypertension, Malignancy Parental Family History Reviewed: Yes Children Family History Reviewed: NA Sibling(s) Family History Reviewed.: Yes Medication/Allergy Home Medications: Aspirin [Aspirin 325 mg Tablet] 325 mg PO DAILYP PRN 07/15/19 Cholecalciferol (Vitamin D3) [Vitamin D3 1000 Unit Tablet] 1,000 unit PO DAILY 07/15/19 Ipratropium/Albuterol Sulfate [Duoneb 3 ml Ampul] 3 ml NEB RTQ6HP PRN 07/15/19 Levalbuterol Tartrate [Xopenex Hfa] 2 puff IH Q6HP PRN 07/15/19 Terazosin HCl [Hytrin] 10 mg PO DAILY 07/15/19 Tiotropium [place] [Spiriva Respimat] 2 puff IH DAILY 07/15/19 Budesonide/Formoterol Fumarate [Symbicort HFA 160-4.5 mcg Inhaler 6 gm] 1 puff IH BID #1 inhaler 07/20/19 Buspirone HCl [Buspar 30 mg Tablet] 1 tab PO DAILY #30 tab 07/20/19 Prednisone [Deltasone 20 mg Tablet] 40 mg PO BID #10 tablet 07/20/19 Prednisone [Deltasone 20 mg Tablet] 40 mg PO BID 5 Days #20 tablet 07/20/19 Allergies/Adverse Reactions: iodine [Iodine] Allergy (Verified 07/15/19 08:00) Shellfish * [Shellfish] Allergy (Verified 07/15/19 08:00) shellfish derived Allergy (Verified 07/15/19 08:00) Review of Systems Constitutional: ABSENT: chills, fever(s) Eyes: ABSENT: visual disturbances Nose, Mouth, and Throat: ABSENT: headache(s) Cardiovascular: ABSENT: chest pain, edema, orthropnea Respiratory: PRESENT: cough, dyspnea Gastrointestinal: ABSENT: abdominal pain, diarrhea, vomiting Musculoskeletal: ABSENT: joint swelling Integumentary: ABSENT: diaphoresis Neurological: ABSENT: confusion Endocrine: ABSENT: polyuria Allergic/Immunologic: ABSENT: seasonal rhinorrhea Physical Exam Vital Signs: Temp Pulse Resp BP Pulse Ox 97.6 F 99 26 H 117/92 H 98 08/12/19 06:11 08/12/19 06:11 08/12/19 08:59 08/12/19 09:00 08/12/19 09:00 Intake & Output 08/11/19 08/12/19 08/13/19 06:59 06:59 06:59 Intake Total 50 Balance 50 Weight 72.575 kg General appearance: PRESENT: no acute distress, cooperative Neck exam: ABSENT: JVD Respiratory exam: PRESENT: symmetrical, unlabored, wheezes. ABSENT: crackles, tachypnea Cardiovascular exam: PRESENT: RRR, +S1, +S2. ABSENT: tachycardia GI/Abdominal exam: PRESENT: hernia, normal bowel sounds, soft. ABSENT: rebound, rigid, tenderness Extremities exam: ABSENT: pedal edema, +1 edema, +2 edema Neurological exam: PRESENT: alert, awake, oriented to person, oriented to place, oriented to time, oriented to situation Psychiatric exam: ABSENT: anxious Results Laboratory Results: 08/12/19 06:42 08/12/19 06:42 08/12/19 08/12/19 06:42 06:42 WBC 4.8 RBC 4.14 L Hgb 12.9 L Hct 38.6 MCV 93 MCH 31.2 MCHC 33.5 RDW 14.0 Plt Count 213 Seg Neutrophils % 60.2 Sodium 139.0 Potassium 4.2 Chloride 101 Carbon Dioxide 30 Anion Gap 8 BUN 9 Creatinine 0.76 Est GFR ( Amer) > 60 Glucose 106 Calcium 8.8 Total Bilirubin 0.3 AST 19 Alkaline Phosphatase 57 Total Protein 6.8 Albumin 3.6 08/12/19 06:42 Troponin I < 0.012 Impressions: Chest X-Ray 08/12/19 06:14 IMPRESSION: Hyperexpansion otherwise negative chest. Assessment and Plan - Diagnosis (1) COPD exacerbation Is this a current diagnosis for this admission?: Yes Plan: Chest x-ray image has been reviewed by me which does not show any clear consolidation We will treat with standing nebulizers, steroids IV, azithromycin Placed on LAMA/LABA/ICS (2) Acute hypoxemic respiratory failure Is this a current diagnosis for this admission?: Yes Plan: Patient placed on BiPAP in the ER for tachypnea and work of breathing Patient looks better right now so we will attempt to wean off BiPAP (3) Tobacco dependence Is this a current diagnosis for this admission?: Yes Plan: Nicotine replacement Counseled on smoking cessation (4) BPH (benign prostatic hyperplasia) Qualifiers: Lower urinary tract symptom presence: symptoms present Is this a current diagnosis for this admission?: Yes Plan: Continue tamsulosin - Time Time Spent with patient: 35 or more minutes
[2019-08-12] MEDS: METHYLPREDNISOLONE INJ 40 MG/1 ML SDV IV SCH (10:46)
[2019-08-12] MEDS: ENOXAPARIN SODIUM INJ 40 MG/0.4 ML DISP.SYRIN SUBCUT SCH (10:46)
[2019-08-12] MEDS: FLUTICASONE/UMECLIDIN/VILANTER 100-62.5-25 MCG/DOSE IH SCH (12:13)
[2019-08-12] MEDS ORDERED: NICOTINE 14 MG/24 HR PATCH.TD24 TD PRN (13:30)
[2019-08-12] MEDS: IPRATROPIUM/ALBUTEROL 0.5-2.5 MG/3 ML AMPUL NEB SCH ×2 (14:28→20:24)
--- NOTE | 2019-08-12 22:38 | EKG REPORT ---
SEVERITY:- ABNORMAL ECG - SINUS TACHYCARDIA RIGHT ATRIAL ABNORMALITY LOW VOLTAGE IN FRONTAL LEADS CONSIDER ANTEROSEPTAL INFARCT : Confirmed by: Anna Guardado 12-Aug-2019 22:37:23
[2019-08-13] MEDS: IPRATROPIUM/ALBUTEROL 0.5-2.5 MG/3 ML AMPUL NEB SCH ×4 (03:09→20:11)
[2019-08-13 05:11] LABS: ABSOLUTE LYMPHOCYTES (AUTO) 1.2 10^3/uL (0.5-4.7); ABSOLUTE MONOCYTES (AUTO) 0.6 10^3/uL (0.1-1.4); ABSOLUTE NEUT (AUTO) 4.5 10^3/uL (1.7-8.2); BASOPHILS % (AUTO) 0.2 % (0-2); EOSINOPHILS % (AUTO) 0.1 % (0-6); HEMATOCRIT 35.5 % (37.9-51.0); HEMOGLOBIN 11.9 g/dL (13.5-17.0); LYMPHOCYTES % (AUTO) 19.7 % (13-45); MEAN CORPUSCULAR HGB CONC 33.6 g/dL (32.0-36.0); MEAN CORPUSCULAR VOLUME 92 fl (80-97); MONOCYTES % (AUTO) 9.9 % (3-13); PLATELET COUNT 223 10^3/uL (150-450); RED BLOOD COUNT 3.85 10^6/uL (4.35-5.55); RED CELL DISTRIBUTION WIDTH 13.6 % (11.5-14.0); SEGMENTED NEUTROPHILS % (AUTO) 70.1 % (42-78); TOTAL CELLS COUNTED % (AUTO) 100 %; WHITE BLOOD COUNT 6.4 10^3/uL (4.0-10.5)
[2019-08-13 05:32] LABS: ANION GAP 8 (5-19); BLOOD UREA NITROGEN 16 mg/dL (7-20); CALCIUM 9.2 mg/dL (8.4-10.2); CARBON DIOXIDE 31 mmol/L (22-30); CHLORIDE 99 mmol/L (98-107); GLUCOSE 118 mg/dL (75-110); PHOSPHORUS 3.5 mg/dL (2.5-4.5); POTASSIUM 4.3 mmol/L (3.6-5.0)
[2019-08-13] MEDS: FLUTICASONE/UMECLIDIN/VILANTER 100-62.5-25 MCG/DOSE IH SCH (09:33)
[2019-08-13] MEDS: CHOLECALCIFEROL (D3) 1,000 UNIT (25 MCG) TABLET PO SCH (09:33)
[2019-08-13] MEDS: METHYLPREDNISOLONE INJ 40 MG/1 ML SDV IV SCH ×2 (09:33→22:15)
[2019-08-13] MEDS: AZITHROMYCIN 250 MG TABLET PO SCH (09:34)
[2019-08-13] MEDS: BUSPIRONE HCL 10 MG TABLET PO SCH ×2 (09:34→17:51)
[2019-08-13] MEDS: ENOXAPARIN SODIUM INJ 40 MG/0.4 ML DISP.SYRIN SUBCUT SCH (09:34)
[2019-08-13] MEDS: DOXAZOSIN MESYLATE 4 MG TABLET PO SCH (09:34)
[2019-08-13] MEDS ORDERED: DOCUSATE SODIUM 100 MG CAPSULE PO PRN (10:14)
[2019-08-13 11:05] LABS: ARTERIAL BLOOD BASE EXCESS 5.2 mmol/L; ARTERIAL BLOOD FIO2 28%; ARTERIAL BLOOD H2CO3 1.65 mmol/L (1.05-1.35); ARTERIAL BLOOD HCO3 31.8 mmol/L (20-24); ARTERIAL BLOOD PCO2 54.8 mmHg (35-45); ARTERIAL BLOOD PH 7.38 (7.35-7.45); ARTERIAL BLOOD PO2 68.2 mmHg (80-100); ARTERIAL BLOOD TOTAL CO2 33.4 mmol/L (23-27)
[2019-08-13] MEDS: VARENICLINE TARTRATE 1 MG TABLET PO SCH ×2 (11:38→17:51)
--- NOTE | 2019-08-13 12:31 | PDOC PROGRESS REPORT ---
Subjective Progress Note for:: 08/13/19 Subjective:: Patient is still feeling short of breath. When taken off BiPAP this morning, patient started to complain of more shortness of breath. Otherwise patient would like to continue his Chantix. Denies any chest pain. Reason For Visit: COPD EXACERBATION Physical Exam Vital Signs: Temp Pulse Resp BP Pulse Ox 98.0 F 91 14 120/83 98 08/13/19 11:59 08/13/19 11:59 08/13/19 11:59 08/13/19 11:59 08/13/19 11:59 Intake & Output 08/12/19 08/13/19 08/14/19 06:59 06:59 06:59 Intake Total 50 Balance 50 Weight 72.575 kg 72.6 kg General appearance: PRESENT: cooperative, mild distress Neck exam: ABSENT: JVD Respiratory exam: PRESENT: accessory muscle use, prolonged expiratory phas, symmetrical, tachypnea, wheezes. ABSENT: rales, retraction, rhonchi Cardiovascular exam: PRESENT: RRR, +S1, +S2. ABSENT: tachycardia GI/Abdominal exam: PRESENT: normal bowel sounds, soft. ABSENT: guarding, rebound, rigid, tenderness Neurological exam: PRESENT: alert, awake, oriented to person, oriented to place, oriented to time, oriented to situation Results Laboratory Results: 08/13/19 04:38 08/13/19 04:38 08/13/19 08/13/19 08/13/19 04:38 04:38 10:55 WBC 6.4 RBC 3.85 L Hgb 11.9 L Hct 35.5 L MCV 92 MCH 31.0 MCHC 33.6 RDW 13.6 Plt Count 223 Seg Neutrophils % 70.1 Carbonic Acid 1.65 H HCO3/H2CO3 Ratio 19:1 ABG pH 7.38 ABG pCO2 54.8 H ABG pO2 68.2 L ABG HCO3 31.8 H ABG O2 Saturation 93.0 L ABG Base Excess 5.2 FiO2 28% Sodium 137.8 Potassium 4.3 Chloride 99 Carbon Dioxide 31 H Anion Gap 8 BUN 16 Creatinine 0.75 Est GFR ( Amer) > 60 Glucose 118 H Calcium 9.2 Phosphorus 3.5 Magnesium 1.9 08/12/19 06:42 Troponin I < 0.012 Impressions: Chest X-Ray 08/12/19 06:14 IMPRESSION: Hyperexpansion otherwise negative chest. Assessment and Plan - Diagnosis (1) COPD exacerbation Is this a current diagnosis for this admission?: Yes Plan: Continue treatment with standing nebulizers, steroids IV, azithromycin I have increased Solu-Medrol to every 12 hours given that he is still requiring BiPAP Placed on LAMA/LABA/ICS (2) Acute on chronic respiratory failure with hypoxia and hypercapnia Is this a current diagnosis for this admission?: Yes Plan: Took patient off BiPAP today and patient became tachypneic with mild accessory muscle use requiring also placed patient back on BiPAP. ABG shows respiratory acidosis with a PCO2 of 54 and adequate compensatory metabolic alkalosis Will continue on BiPAP at this time (3) Tobacco dependence Is this a current diagnosis for this admission?: Yes Plan: Nicotine patch Counseled on smoking cessation Chantix resumed (4) BPH (benign prostatic hyperplasia) Qualifiers: Lower urinary tract symptom presence: symptoms present Is this a current diagnosis for this admission?: Yes Plan: Continue terazosin. Patient is allowed to take his own med as we do not have this in our formulary. - Time Time Spent with patient: 15-24 minutes
[2019-08-14] MEDS: IPRATROPIUM/ALBUTEROL 0.5-2.5 MG/3 ML AMPUL NEB SCH ×4 (02:29→19:59)
[2019-08-14 06:38] LABS: ABSOLUTE LYMPHOCYTES (AUTO) 0.6 10^3/uL (0.5-4.7); ABSOLUTE MONOCYTES (AUTO) 0.2 10^3/uL (0.1-1.4); ABSOLUTE NEUT (AUTO) 3.9 10^3/uL (1.7-8.2); BASOPHILS % (AUTO) 0.2 % (0-2); EOSINOPHILS % (AUTO) 0.1 % (0-6); HEMATOCRIT 37.5 % (37.9-51.0); HEMOGLOBIN 12.8 g/dL (13.5-17.0); LYMPHOCYTES % (AUTO) 13.4 % (13-45); MEAN CORPUSCULAR HEMOGLOBIN 31.5 pg (27.0-33.4); MEAN CORPUSCULAR HGB CONC 34.2 g/dL (32.0-36.0); MEAN CORPUSCULAR VOLUME 92 fl (80-97); MONOCYTES % (AUTO) 3.9 % (3-13); PLATELET COUNT 223 10^3/uL (150-450); RED BLOOD COUNT 4.07 10^6/uL (4.35-5.55); RED CELL DISTRIBUTION WIDTH 14.1 % (11.5-14.0); SEGMENTED NEUTROPHILS % (AUTO) 82.4 % (42-78); TOTAL CELLS COUNTED % (AUTO) 100 %; WHITE BLOOD COUNT 4.7 10^3/uL (4.0-10.5)
[2019-08-14 06:49] LABS: ANION GAP 5 (5-19); BLOOD UREA NITROGEN 17 mg/dL (7-20); CARBON DIOXIDE 32 mmol/L (22-30); CHLORIDE 100 mmol/L (98-107); GLUCOSE 110 mg/dL (75-110); POTASSIUM 4.9 mmol/L (3.6-5.0)
[2019-08-14] MEDS: DOXAZOSIN MESYLATE 4 MG TABLET PO SCH (09:31)
[2019-08-14] MEDS: METHYLPREDNISOLONE INJ 40 MG/1 ML SDV IV SCH ×2 (09:32→21:42)
[2019-08-14] MEDS: CHOLECALCIFEROL (D3) 1,000 UNIT (25 MCG) TABLET PO SCH (09:32)
[2019-08-14] MEDS: AZITHROMYCIN 250 MG TABLET PO SCH (09:32)
[2019-08-14] MEDS: FLUTICASONE/UMECLIDIN/VILANTER 100-62.5-25 MCG/DOSE IH SCH (09:32)
[2019-08-14] MEDS: ENOXAPARIN SODIUM INJ 40 MG/0.4 ML DISP.SYRIN SUBCUT SCH (09:32)
[2019-08-14] MEDS: VARENICLINE TARTRATE 1 MG TABLET PO SCH ×2 (09:32→17:35)
[2019-08-14] MEDS: BUSPIRONE HCL 10 MG TABLET PO SCH ×2 (09:32→17:35)
--- NOTE | 2019-08-14 13:35 | PDOC PROGRESS REPORT ---
Subjective Subjective:: Patient is doing well off BiPAP today. States that shortness of breath is improved. Denies any chest pain. Reason For Visit: COPD EXACERBATION Physical Exam Vital Signs: Temp Pulse Resp BP Pulse Ox 98.5 F 85 18 107/68 97 08/14/19 11:51 08/14/19 11:51 08/14/19 11:51 08/14/19 11:51 08/14/19 11:51 Intake & Output 08/13/19 08/14/19 08/15/19 06:59 06:59 06:59 Intake Total 50 1590 480 Output Total 3850 350 Balance 50 -2260 130 Weight 72.6 kg 78.9 kg General appearance: PRESENT: no acute distress, cooperative Neck exam: ABSENT: JVD Respiratory exam: PRESENT: symmetrical, unlabored - Improved from yesterday, wheezes. ABSENT: tachypnea Cardiovascular exam: PRESENT: RRR, +S1, +S2. ABSENT: tachycardia GI/Abdominal exam: PRESENT: normal bowel sounds, soft. ABSENT: rebound, rigid, tenderness Neurological exam: PRESENT: alert, awake, oriented to person, oriented to place, oriented to time, oriented to situation Results Laboratory Results: 08/14/19 05:24 08/14/19 05:24 08/14/19 08/14/19 05:24 05:24 WBC 4.7 RBC 4.07 L Hgb 12.8 L Hct 37.5 L MCV 92 MCH 31.5 MCHC 34.2 RDW 14.1 H Plt Count 223 Seg Neutrophils % 82.4 H Sodium 136.5 L Potassium 4.9 Chloride 100 Carbon Dioxide 32 H Anion Gap 5 BUN 17 Creatinine 0.78 Est GFR ( Amer) > 60 Glucose 110 Calcium 9.0 08/12/19 06:42 Troponin I < 0.012 Impressions: Chest X-Ray 08/12/19 06:14 IMPRESSION: Hyperexpansion otherwise negative chest. Assessment and Plan - Diagnosis (1) COPD exacerbation Is this a current diagnosis for this admission?: Yes Plan: Continue treatment with standing nebulizers, steroids IV, azithromycin Continue Solu-Medrol every 12 hours I will de-escalate tomorrow Successfully weaned off BiPAP to nasal cannula Placed on LAMA/LABA/ICS (2) Acute on chronic respiratory failure with hypoxia and hypercapnia Is this a current diagnosis for this admission?: Yes Plan: Now off BiPAP and doing well. (3) Tobacco dependence Is this a current diagnosis for this admission?: Yes Plan: Nicotine patch Counseled on smoking cessation Chanzanderx (4) BPH (benign prostatic hyperplasia) Qualifiers: Lower urinary tract symptom presence: symptoms present Is this a current diagnosis for this admission?: Yes Plan: Continue terazosin. Patient is allowed to take his own med as we do not have this in our formulary. - Time Time Spent with patient: Less than 15 minutes
[2019-08-15] MEDS: IPRATROPIUM/ALBUTEROL 0.5-2.5 MG/3 ML AMPUL NEB SCH ×3 (01:55→13:54)
[2019-08-15 05:52] LABS: ANION GAP 8 (5-19); BLOOD UREA NITROGEN 18 mg/dL (7-20); CALCIUM 9.4 mg/dL (8.4-10.2); CARBON DIOXIDE 31 mmol/L (22-30); CHLORIDE 97 mmol/L (98-107); GLUCOSE 101 mg/dL (75-110); POTASSIUM 4.8 mmol/L (3.6-5.0)
[2019-08-15] MEDS: BUSPIRONE HCL 10 MG TABLET PO SCH (09:18)
[2019-08-15] MEDS: CHOLECALCIFEROL (D3) 1,000 UNIT (25 MCG) TABLET PO SCH (09:19)
[2019-08-15] MEDS: AZITHROMYCIN 250 MG TABLET PO SCH (09:20)
[2019-08-15] MEDS: ENOXAPARIN SODIUM INJ 40 MG/0.4 ML DISP.SYRIN SUBCUT SCH (09:20)
[2019-08-15] MEDS: METHYLPREDNISOLONE INJ 40 MG/1 ML SDV IV SCH (09:20)
[2019-08-15] MEDS: DOXAZOSIN MESYLATE 4 MG TABLET PO SCH (09:22)
[2019-08-15] MEDS: FLUTICASONE/UMECLIDIN/VILANTER 100-62.5-25 MCG/DOSE IH SCH (09:36)
[2019-08-15] MEDS: VARENICLINE TARTRATE 1 MG TABLET PO SCH (09:36)
--- NOTE | 2019-08-15 13:24 | PDOC DISCHARGE SUMMARY ---
Impression - Admit/DC Date/PCP Admission Date/Primary Care Provider: 08/12/19 08:[facility] Discharge Date: 08/15/19 - Discharge Diagnosis (1) COPD exacerbation Is this a current diagnosis for this admission?: Yes (2) Acute on chronic respiratory failure with hypoxia and hypercapnia Is this a current diagnosis for this admission?: Yes (3) Tobacco dependence Is this a current diagnosis for this admission?: Yes (4) BPH (benign prostatic hyperplasia) Is this a current diagnosis for this admission?: Yes - Assessment Summary: Patient was evaluated in the ER after presenting with progressive shortness of breath and cough. Initially patient was noted to be very tachypneic with some work of breathing. ABG revealed mild respiratory acidosis with hypercapnia and metabolic compensation. The ABG also noted mild hypoxia. Patient was subse quently placed on a BiPAP. Patient was admitted to the hospitalist service for COPD exacerbation with acute on chronic hypoxic hypercarbic respiratory failure. Chest x-ray showed no evidence of pneumonia. Patient was started on breathing treatments with standing nebulizer bronchodilators, laba/lama/ICS and steroids. Patient was initially started on IV Solu-Medrol. BiPAP therapy was continued. BiPAP was tried to be weaned off the subsequent day but was unsuccessful as patient became very dyspneic started working to breathe again. However the following day patient was able to completely get off BiPAP and was without it throughout. Today patient remains off BiPAP and his breathing has significantly improved. Of note patient has also been treated with azithromycin during his stay. Today patient was ambulated around the floor and he did really well in terms of his respiratory status on ambulation and feels comfortable to go home. Patient is being discharged in stable conditions with 3 more days of prednisone and to resume his LABA/ICS/LAMA inhalers as well as his rescue inhalers and nebulizer. Patient has been given information to follow-up with Dr. Whitfield for further management of COPD. - Additional Information Resuscitation Status: Full Code Discharge Diet: As Tolerated Discharge Activity: Slowly Increase Activity Referrals: ANH WHITFIELD MD [ACTIVE STAFF] - LIZBET GUY PA [NO LOCAL MD] - (Please follow-up within 1 to 2 weeks) Prescriptions: Prednisone [Deltasone] 20 mg PO DAILY 3 Days #6 tablet Home Medications: Aspirin [Aspirin 325 mg Tablet] 325 mg PO DAILYP PRN 07/15/19 Cholecalciferol (Vitamin D3) [Vitamin D3 1000 Unit Tablet] 1,000 unit PO DAILY 07/15/19 Ipratropium/Albuterol Sulfate [Duoneb 3 ml Ampul] 3 ml NEB RTQ6HP PRN 07/15/19 Levalbuterol Tartrate [Xopenex Hfa] 2 puff IH Q6HP PRN 07/15/19 Terazosin HCl [Hytrin] 10 mg PO DAILY 07/15/19 Tiotropium [place] [Spiriva Respimat] 2 puff IH DAILY 07/15/19 Budesonide/Formoterol Fumarate [Symbicort HFA 160-4.5 mcg Inhaler 6 gm] 1 puff IH BID #1 inhaler 07/20/19 Buspirone HCl [Buspar 10 mg Tablet] 10 mg PO BID 08/12/19 Prednisone [Deltasone] 20 mg PO DAILY 3 Days #6 tablet 08/15/19 History of Present Illiness History of Present Illness: JOSE FERNANDO is a 63 year old male with a history of COPD, who presents to the hospital with complaints of dyspnea for the past 3 days. Patient states that symptoms have been worsening. Denies any orthopnea or PND. Acknowledges mild nonproductive cough with only very mild changes in sputum production. Denies any rhinorrhea or congestion. Denies sick contacts. Denies noncompliance with inhalers. Denies any fevers or chills. Patient's currently still smokes despite being on Chantix. Patient does acknowledge frequent adm issions for COPD. Denies using illicit drugs. In the emergency department, patient was noted to be very tachypneic and having work of breathing and subsequently patient placed on BiPAP by the ER physician. Hospitalist service consulted for admission. Physical Exam Vital Signs: Temp Pulse Resp BP Pulse Ox 98.0 F 88 18 118/80 93 08/15/19 08:23 08/15/19 08:48 08/15/19 08:48 08/15/19 08:23 08/15/19 08:48 Intake & Output 08/14/19 08/15/19 08/16/19 06:59 06:59 06:59 Intake Total 1590 1900 480 Output Total 3850 2175 500 Balance -2260 -275 -20 Weight 78.9 kg 77 kg General appearance: PRESENT: no acute distress, cooperative Respiratory exam: PRESENT: symmetrical, unlabored, wheezes - Mild but improved from before. ABSENT: tachypnea Cardiovascular exam: PRESENT: +S1, +S2 Neurological exam: PRESENT: alert, awake, oriented to person, oriented to place, oriented to time, oriented to situation Results Laboratory Results: WBC 4.7 10^3/uL (4.0-10.5) 08/14/19 05:24 RBC 4.07 10^6/uL (4.35-5.55) L 08/14/19 05:24 Hgb 12.8 g/dL (13.5-17.0) L 08/14/19 05:24 Hct 37.5 % (37.9-51.0) L 08/14/19 05:24 MCV 92 fl (80-97) 08/14/19 05:24 MCH 31.5 pg (27.0-33.4) 08/14/19 05:24 MCHC 34.2 g/dL (32.0-36.0) 08/14/19 05:24 RDW 14.1 % (11.5-14.0) H 08/14/19 05:24 Plt Count 223 10^3/uL (150-450) 08/14/19 05:24 Lymph % (Auto) 13.4 % (13-45) 08/14/19 05:24 [place] % (Auto) 3.9 % (3-13) 08/14/19 05:24 Eos % (Auto) 0.1 % (0-6) 08/14/19 05:24 Baso % (Auto) 0.2 % (0-2) 08/14/19 05:24 Absolute Neuts (auto) 3.9 10^3/uL (1.7-8.2) 08/14/19 05:24 Absolute Lymphs (auto) 0.6 10^3/uL (0.5-4.7) 08/14/19 05:24 Absolute Monos (auto) 0.2 10^3/uL (0.1-1.4) 08/14/19 05:24 Absolute Eos (auto) 0.0 10^3/uL (0.0-0.6) 08/14/19 05:24 Absolute Basos (auto) 0.0 10^3/uL (0.0-0.2) 08/14/19 05:24 Seg Neutrophils % 82.4 % (42-78) H 08/14/19 05:24 PT 13.1 SEC (11.4-15.4) 08/12/19 06:42 INR 0.99 08/12/19 06:42 Carbonic Acid 1.65 mmol/L (1.05-1.35) H 08/13/19 10:55 HCO3/H2CO3 Ratio 19:1 08/13/19 10:55 ABG pH 7.38 (7.35-7.45) 08/13/19 10:55 ABG pCO2 54.8 mmHg (35-45) H 08/13/19 10:55 ABG pO2 68.2 mmHg (80-100) L 08/13/19 10:55 ABG HCO3 31.8 mmol/L (20-24) H 08/13/19 10:55 ABG Total CO2 33.4 mmol/L (23-27) H 08/13/19 10:55 ABG O2 Saturation 93.0 % (94-98) L 08/13/19 10:55 ABG Base Excess 5.2 mmol/L 08/13/19 10:55 FiO2 28% 08/13/19 10:55 Sodium 135.7 mmol/L (137-145) L 08/15/19 04:51 Potassium 4.8 mmol/L (3.6-5.0) 08/15/19 04:51 Chloride 97 mmol/L (98-107) L 08/15/19 04:51 Carbon Dioxide 31 mmol/L (22-30) H 08/15/19 04:51 Anion Gap 8 (5-19) 08/15/19 04:51 BUN 18 mg/dL (7-20) 08/15/19 04:51 Creatinine 0.80 mg/dL (0.52-1.25) 08/15/19 04:51 Est GFR ( Amer) > 60 (>60) 08/15/19 04:51 Est GFR (MDRD) Non-Af > 60 (>60) 08/15/19 04:51 Glucose 101 mg/dL (75-110) 08/15/19 04:51 POC Glucose 102 mg/dL (70-110) 08/12/19 06:22 Lactic Acid (Sepsis) 0.9 mmol/L (0.7-2.1) 08/12/19 12:34 Calcium 9.4 mg/dL (8.4-10.2) 08/15/19 04:51 Phosphorus 3.5 mg/dL (2.5-4.5) 08/13/19 04:38 Magnesium 1.9 mg/dL (1.6-2.3) 08/13/19 04:38 Total Bilirubin 0.3 mg/dL (0.2-1.3) 08/12/19 06:42 Direct Bilirubin 0.1 mg/dL (0.0-0.4) 08/12/19 06:42 Neonat Total Bilirubin Not Reportable 08/12/19 06:42 Neonat Direct Bilirubin Not Reportable 08/12/19 06:42 Neonat Indirect Bili Not Reportable 08/12/19 06:42 AST 19 U/L (17-59) 08/12/19 06:42 ALT 14 U/L (<50) 08/12/19 06:42 Alkaline Phosphatase 57 U/L (38-126) 08/12/19 06:42 Troponin I < 0.012 ng/mL 08/12/19 06:42 Total Protein 6.8 g/dL (6.3-8.2) 08/12/19 06:42 Albumin 3.6 g/dL (3.5-5.0) 08/12/19 06:42 08/12/19 06:42 Troponin I < 0.012 Impressions: Chest X-Ray 08/12/19 06:14 IMPRESSION: Hyperexpansion otherwise negative chest. Plan Time Spent: Greater than 30 Minutes Stroke Is this a Stroke Patient?: No Acute Heart Failure - Is this a Heart Failure Patient?: No
[2019-08-15 14:20] VITALS: BP 141/88
== END 2019-08-15 16:09 | disposition home or self-care (01) | DRG 189 ==
LOC: ER 05:55 → EH 08:06 → 3W 21:26
PROVIDERS: ADMIT Internal Medicine; ATTEND Internal Medicine
PROC: 5A09457 Assistance with Respiratory Ventilation, 24-96 Consecutive Hours, Continuous Positive Airway Pressure (ICD-10-PCS; principal; 2019-08-12)
DX: J96.22 Acute and chronic respiratory failure with hypercapnia (principal); J44.1 Chronic obstructive pulmonary disease with (acute) exacerbation; J96.21 Acute and chronic respiratory failure with hypoxia; Z88.8 Allergy status to other drugs, medicaments and biological substances; Z91.013 Allergy to seafood; F17.200 Nicotine dependence, unspecified, uncomplicated; Z83.6 Family history of other diseases of the respiratory system; I50.9 Heart failure, unspecified; K21.9 Gastro-esophageal reflux disease without esophagitis; F32.9 Major depressive disorder, single episode, unspecified; Z79.82 Long term (current) use of aspirin; Z79.899 Other long term (current) drug therapy; N40.1 Benign prostatic hyperplasia with lower urinary tract symptoms
CPT/HCPCS: 36415; 71045; 80048; 80053; 82803; 82962; 83605; 83735; 84100; 84484; 85025; 85610; 87040; 93005; 93010; 94640; 94660; 96365; 99285; J0696; J1650; J2920; J3490; J7620

== ENCOUNTER → 2019-08-28 | Day surgery (SDC) | payer OTHER ==
[~2019-08-28] MED LIST: ALBUTEROL SULFATE 0.083% NEB 2.5 MG/3 ML AMPUL NEB ONE; BUPIVACAINE INJ/PF LIPOSOME/PF 266 MG/20 ML SDV ONE; CEFAZOLIN 1 GM/D5W RTU 1 GM/50 ML RTUPB IV ONE; CEFAZOLIN 1 GM/D5W RTU 1 GM/50 ML RTUPB IV PRN; DEXAMETHASONE SOD PHOSPHATE INJ 4 MG/1 ML VIAL ONE; EPHEDRINE SULFATE INJ 50 MG/1 ML AMPULE ONE; FENTANYL CITRATE INJ/PF 100 MCG/2 ML AMPUL ONE; IPRATROPIUM/ALBUTEROL 0.5-2.5 MG/3 ML AMPUL NEB ONE; KETOROLAC TROMETHAMINE 60 MG/2 ML SDV ONE; LIDOCAINE 0.5% INJ-PF (5 MG/ML) 50 ML SDV SUBCUT PRN; MIDAZOLAM 2 MG/2 ML INJ ONE; ONDANSETRON HCL INJ/PF 4 MG/2 ML SDV ONE; PROPOFOL INJ 200 MG/20 ML VIAL IV ONE; RINGERS SOLUTION,LACTATED 1,000 ML IV PRN
[2019-08-28 09:15] LABS: URINE AMPHETAMINES SCREEN NEGATIVE; URINE BARBITURATES SCREEN NEGATIVE; URINE BENZODIAZEPINES SCREEN NEGATIVE; URINE COCAINE SCREEN NEGATIVE; URINE MARIJUANA (THC) SCREEN NEGATIVE; URINE METHADONE SCREEN NEGATIVE; URINE PHENCYCLIDINE SCREEN NEGATIVE
[2019-08-28 09:16] LABS: ARTERIAL BLOOD BASE EXCESS 1.3 mmol/L; ARTERIAL BLOOD FIO2 ROOM AIR; ARTERIAL BLOOD H2CO3 1.35 mmol/L (1.05-1.35); ARTERIAL BLOOD HCO3 26.6 mmol/L (20-24); ARTERIAL BLOOD O2 SATURATION 93.4 % (94-98); ARTERIAL BLOOD PCO2 44.8 mmHg (35-45); ARTERIAL BLOOD PH 7.39 (7.35-7.45)
[2019-08-28] MEDS: ALBUTEROL SULFATE 0.083% NEB 2.5 MG/3 ML AMPUL NEB ONE ×3 (09:30→11:20)
--- NOTE | 2019-08-28 09:31 | RADIOLOGY REPORT (SQ) ---
EXAM DESCRIPTION: CHEST SINGLE VIEW COMPLETED DATE/TIME: 08/28/2019 9:04 am REASON FOR STUDY: pre op COMPARISON: 08/12/2019 EXAM PARAMETERS: NUMBER OF VIEWS: One view. TECHNIQUE: Single frontal radiographic view of the chest acquired. RADIATION DOSE: NA LIMITATIONS: None. FINDINGS: LUNGS AND PLEURA: No opacities, masses or pneumothorax. No pleural effusion. MEDIASTINUM AND HILAR STRUCTURES: No masses. Contour normal. HEART AND VASCULAR STRUCTURES: Heart normal in size. Normal vasculature. BONES: No acute findings. HARDWARE: None in the chest. OTHER: No other significant finding. IMPRESSION: NO ACUTE RADIOGRAPHIC FINDING IN THE CHEST. TECHNICAL DOCUMENTATION: JOB ID: [id number] [employer]- All Rights Reserved Reading location - IP/workstation name: [email or web address]
[2019-08-28 10:26] VITALS: BP 115/85
--- NOTE | 2019-08-28 10:34 | EKG REPORT ---
SEVERITY:- BORDERLINE ECG - SINUS RHYTHM PROBABLE LEFT ATRIAL ABNORMALITY BORDERLINE LEFT AXIS DEVIATION LOW VOLTAGE IN FRONTAL LEADS : Confirmed by: Sabas Flores MD 28-Aug-2019 10:33:57
== END ==
LOC: OROUT 08:32
PROVIDERS: ATTEND Surgery
DX: R06.2 Wheezing (principal); K40.21 Bilateral inguinal hernia, without obstruction or gangrene, recurrent; Z79.51 Long term (current) use of inhaled steroids; J44.9 Chronic obstructive pulmonary disease, unspecified
CPT/HCPCS: 82803; 80307; 71045; 93005; 93010; 36600; J0690; J1100; J7620; C9290; J1885; J2250; J2405; J2704; J3010; J3490

== ENCOUNTER 2020-02-10 10:26 | Emergency (ER) | payer OTHER ==
[2020-02-10 10:53] LABS: ABSOLUTE EOSINOPHILS # (AUTO) 0.3 10^3/uL (0.0-0.6); ABSOLUTE LYMPHOCYTES (AUTO) 2.1 10^3/uL (0.5-4.7); ABSOLUTE MONOCYTES (AUTO) 0.5 10^3/uL (0.1-1.4); ABSOLUTE NEUT (AUTO) 2.2 10^3/uL (1.7-8.2); BASOPHILS % (AUTO) 0.5 % (0-2); EOSINOPHILS % (AUTO) 5.7 % (0-6); HEMATOCRIT 42.9 % (37.9-51.0); HEMOGLOBIN 14.8 g/dL (13.5-17.0); LYMPHOCYTES % (AUTO) 39.9 % (13-45); MEAN CORPUSCULAR HEMOGLOBIN 31.3 pg (27.0-33.4); MEAN CORPUSCULAR HGB CONC 34.6 g/dL (32.0-36.0); MEAN CORPUSCULAR VOLUME 91 fl (80-97); MONOCYTES % (AUTO) 10.3 % (3-13); PLATELET COUNT 287 10^3/uL (150-450); RED BLOOD COUNT 4.74 10^6/uL (4.35-5.55); RED CELL DISTRIBUTION WIDTH 13.7 % (11.5-14.0); SEGMENTED NEUTROPHILS % (AUTO) 43.6 % (42-78); TOTAL CELLS COUNTED % (AUTO) 100 %; WHITE BLOOD COUNT 5.2 10^3/uL (4.0-10.5)
[2020-02-10 11:13] LABS: ALBUMIN 4.2 g/dL (3.5-5.0); ALKALINE PHOSPHATASE 74 U/L (38-126); ANION GAP 7 (5-19); ASPARTATE AMINO TRANSFERASE 20 U/L (17-59); BILIRUBIN,DIRECT 0.1 mg/dL (0.0-0.4); BILIRUBIN,TOTAL 0.4 mg/dL (0.2-1.3); BLOOD UREA NITROGEN 13 mg/dL (7-20); CALCIUM 9.4 mg/dL (8.4-10.2); CARBON DIOXIDE 30 mmol/L (22-30); CHLORIDE 99 mmol/L (98-107); GLUCOSE 89 mg/dL (75-110); POTASSIUM 4.4 mmol/L (3.6-5.0); TOTAL PROTEIN 7.6 g/dL (6.3-8.2)
--- NOTE | 2020-02-10 11:43 | RADIOLOGY REPORT (SQ) ---
EXAM DESCRIPTION: CHEST SINGLE VIEW IMAGES COMPLETED DATE/TIME: 02/10/2020 11:09 am REASON FOR STUDY: dyspnea and chest pain COMPARISON: 08/28/2019 EXAM PARAMETERS: NUMBER OF VIEWS: One view. TECHNIQUE: Single frontal radiographic view of the chest acquired. RADIATION DOSE: NA LIMITATIONS: None. FINDINGS: LUNGS AND PLEURA: No opacities, masses or pneumothorax. No pleural effusion. MEDIASTINUM AND HILAR STRUCTURES: No masses. Contour normal. HEART AND VASCULAR STRUCTURES: Heart normal in size. Normal vasculature. BONES: No acute findings. HARDWARE: None in the chest. OTHER: No other significant finding. IMPRESSION: NO ACUTE RADIOGRAPHIC FINDING IN THE CHEST. TECHNICAL DOCUMENTATION: JOB ID: [id number] [employer]- All Rights Reserved Reading location - IP/workstation name: [email or web address]
--- NOTE | 2020-02-10 12:55 | EKG REPORT ---
SEVERITY:- BORDERLINE ECG - SINUS RHYTHM LOW VOLTAGE IN FRONTAL LEADS BORDERLINE R WAVE PROGRESSION, ANTERIOR LEADS BORDERLINE T ABNORMALITIES, ANT-LAT LEADS : Confirmed by: Sabas Flores MD 10-Feb-2020 12:54:03
[2020-02-10] MEDS ORDERED: ALBUTEROL SULFATE 0.083% NEB 2.5 MG/3 ML AMPUL NEB ONE (14:55)
--- NOTE | 2020-02-10 15:38 | PDOC CONSULTATION ---
Consultation Consult Date: 02/10/20 Attending physician:: LISA GONG Provider Consulted: CHAU MAX Consult reason:: Chest pain History of Present Illness Admission Date/PCP: [facility] Patient complains of: Chest pain, cough History of Present Illness: JOSE FERNANDO is a 64 year old male with a history of COPD, who presents to the hospital with complaints of acute onset chest pain around 9:00 this morning. Patient states that for the past few days, he has been experiencing some increased cough productive of sputum more than his baseline accompanied by some shortness of breath and mild rhinorrhea. This morning he experienced chest pain which was substernal, initially sharp and burning in sensation, moderate in severity without any significant radiation. Did not notice any particularly aggravating or alleviating factors and the chest pain seemed to run its course lasting about 7 minutes in duration. He called the ambulance. By the time of his arrival, the chest pain had begun to resolve and he has been chest pain-free since morning. Troponin x2 are negative. Hospitalist consulted for possible admission for evaluation of chest pain. Patient denies sick contacts. Patient states he has his nebulizer as well as nebulizer solution at home. Past Medical History Cardiac Medical History: Denies: Atrial Fibrillation, Coronary Artery Disease, DVT, Myocardial Infarction, Hyperlipidema, Hypertension, Pulmonary Embolism Pulmonary Medical History: Reports: Bronchitis, Chronic Obstructive Pulmonary Disease (COPD), Pneumonia, Tuberculosis - Treatment in 1991 Denies: Sleep Apnea Neurological Medical History: Denies: Seizures Endocrine Medical History: Denies: Diabetes Mellitus Type 1, Diabetes Mellitus Type 2, Hyperthyroidism, Hypothyroidism Malignancy Medical History: Denies: Breast Cancer, Cervical Cancer, Lung Cancer, Ovarian Cancer GI Medical History: Reports: Gastroesophageal Reflux Disease Denies: Cirrhosis, Crohn's Disease, Hepatitis, Ulcerative Colitis Musculoskeltal Medical History: Reports: Arthritis Denies: Gout Skin Medical History: Denies: Eczema, Psoriasis Psychiatric Medical History: Reports: Depression Hematology: Denies: Anemia, Bleeding Tendencies Past Surgical History Past Surgical History: Denies: Appendectomy, Cholecystectomy, Coronary Artery Bypass Graft, Gastric Bypass Surgery, Herniorrhaphy, Pacemaker, Tonsillectomy Social History Smoking Status: Current Every Day Smoker Frequency of Alcohol Use: None Hx Recreational Drug Use: Yes - Sober for over a year now Drugs: Cocaine Hx Prescription Drug Abuse: No Family History Family History: CAD - in his brother, COPD. denies: DM, Hypertension, Malignancy Parental Family History Reviewed: Yes Children Family History Reviewed: NA Sibling(s) Family History Reviewed.: Yes Medication/Allergy Home Medications: Aspirin [Aspirin 325 mg Tablet] 325 mg PO DAILYP PRN 07/15/19 Cholecalciferol (Vitamin D3) [Vitamin D3 1000 Unit Tablet] 1,000 unit PO DAILY 07/15/19 Ipratropium/Albuterol Sulfate [Duoneb 3 ml Ampul] 3 ml NEB RTQ6HP PRN 07/15/19 Levalbuterol Tartrate [Xopenex Hfa] 2 puff IH Q6HP PRN 07/15/19 Terazosin HCl [Hytrin] 10 mg PO QHS 07/15/19 Tiotropium [place] [Spiriva Respimat] 2 puff IH DAILY 07/15/19 Budesonide/Formoterol Fumarate [Symbicort HFA 160-4.5 mcg Inhaler 6 gm] 1 puff IH BID #1 inhaler 07/20/19 Buspirone HCl [Buspar 10 mg Tablet] 10 mg PO BID 08/12/19 Ranitidine HCl 1 tab PO DAILY PRN 08/26/19 Allergies/Adverse Reactions: iodine [Iodine] Allergy (Verified 08/26/19 15:06) Shellfish * [Shellfish] Allergy (Verified 08/26/19 15:06) shellfish derived Allergy (Verified 08/26/19 15:06) Review of Systems Constitutional: ABSENT: chills, fever(s) Eyes: ABSENT: visual disturbances Nose, Mouth, and Throat: ABSENT: headache(s) Cardiovascular: PRESENT: chest pain Respiratory: PRESENT: cough, sputum Gastrointestinal: ABSENT: nausea Musculoskeletal: ABSENT: joint swelling Integumentary: ABSENT: diaphoresis Neurological: ABSENT: dizziness Endocrine: ABSENT: flushing Allergic/Immunologic: PRESENT: other - rhinorrhea Physical Exam Vital Signs: Temp Pulse Resp BP Pulse Ox 98.0 F 15 105/88 H 97 02/10/20 10:50 02/10/20 13:01 02/10/20 13:00 02/10/20 13:01 Intake & Output 02/09/20 02/10/20 02/11/20 06:59 06:59 06:59 Weight 75.3 kg General appearance: PRESENT: no acute distress, cooperative Mouth exam: PRESENT: neck supple Neck exam: ABSENT: JVD Respiratory exam: PRESENT: symmetrical, unlabored, wheezes. ABSENT: tachypnea Cardiovascular exam: PRESENT: RRR, +S1, +S2. ABSENT: tachycardia GI/Abdominal exam: PRESENT: soft. ABSENT: rebound, rigid, tenderness Extremities exam: ABSENT: pedal edema Neurological exam: PRESENT: alert, awake, oriented to person, oriented to place, oriented to time Psychiatric exam: ABSENT: agitated, anxious Focused psych exam: ABSENT: pressured speech Skin exam: ABSENT: jaundice Results Laboratory Results: 02/10/20 09:35 02/10/20 09:35 02/10/20 02/10/20 09:35 09:35 WBC 5.2 RBC 4.74 Hgb 14.8 Hct 42.9 MCV 91 MCH 31.3 MCHC 34.6 RDW 13.7 Plt Count 287 Seg Neutrophils % 43.6 Sodium 136.4 L Potassium 4.4 Chloride 99 Carbon Dioxide 30 Anion Gap 7 BUN 13 Creatinine 0.85 Est GFR ( Amer) > 60 Glucose 89 Calcium 9.4 Total Bilirubin 0.4 AST 20 Alkaline Phosphatase 74 Total Protein 7.6 Albumin 4.2 02/10/20 02/10/20 09:35 12:38 Troponin I < 0.012 < 0.012 Impressions: Chest X-Ray 02/10/20 10:28 IMPRESSION: NO ACUTE RADIOGRAPHIC FINDING IN THE CHEST. Assessment and Plan - Diagnosis (1) Atypical chest pain Is this a current diagnosis for this admission?: Yes Plan: I have reviewed patient's EKG which shows no significant changes compared to prior EKG from earlier this year. Patient is chest pain-free since arrival. Chest x-ray is unremarkable. Troponin is negative x2. Patient does not require admission at this time and have recommended to patient [facility] to schedule for outpatient stress test. (2) COPD exacerbation Is this a current diagnosis for this admission?: Yes Plan: Seems to have mild COPD exacerbation. Patient has his nebulizer as well as the albuterol solution at home and have recommended to him to use this 3-4 times a day for the next 4 weeks for treatment of his COPD exacerbation. I also recommend prednisone for 5 days. (3) Bronchitis Is this a current diagnosis for this admission?: Yes Plan: Supportive care. Recommend checking coronavirus 19 test prior to discharge and have patient follow-up with the health department or medical records for results. (4) Tobacco abuse Is this a current diagnosis for this admission?: Yes Plan: Patient states he is taking Chantix and nicotine patch. Counseled on cessation. - Time Time Spent with patient: 35 or more minutes
--- NOTE | 2020-02-10 16:09 | ER Document Report ---
Entered by ANAM CUI SCRIBE 02/10/20 1137 Acting as scribe for:LISA GONG MD ED General - General Chief Complaint: Chest Pain Stated Complaint: CHEST PAIN Time Seen by Provider: 02/10/20 10:49 Primary Care Provider: BEAN,ROCKY [Primary Care Provider] - Follow up as needed Information source: Patient Notes: This 64 year old male patient presents to the emergency department today with complaints of chest pain. Patient states he was showering this morning, and after he got out of the shower, began to experience chest pain. Patient reports the pain lasted x10 minutes and felt like a burning sensation that traveled to his jaw. Patient reports he called for an ambulance and the pain was decreasing. Patient reports he was given x4 baby aspirin, nitroglycerin, and a breathing treatment by EMS en route and denies any chest pain now. TRAVEL OUTSIDE OF THE [place] IN LAST 30 DAYS: No - Related Data Allergies/Adverse Reactions: iodine [Iodine] Allergy (Verified 08/26/19 15:06) Shellfish * [Shellfish] Allergy (Verified 08/26/19 15:06) shellfish derived Allergy (Verified 08/26/19 15:06) Past Medical History - General Information source: Patient - Social History Smoking Status: Current Every Day Smoker Cigarette use (# per day): Yes Family History: Reviewed & Not Pertinent, CAD, COPD Patient has homicidal ideation: No - Past Medical History Cardiac Medical History: Reports: Hx Congestive Heart Failure Pulmonary Medical History: Reports: Hx Bronchitis, Hx COPD, Hx Pneumonia, Hx Respiratory Failure - Chronic respiratory failure on O2 per nasal cannula at 2 L/min continuously, Hx Tuberculosis - Treatment in 1991 Renal/ Medical History: Reports: Hx Benign Prostatic Hyperplasia GI Medical History: Reports: Hx Gastroesophageal Reflux Disease Musculoskeletal Medical History: Reports Hx Arthritis Psychiatric Medical History: Reports: Hx Depression - Immunizations Hx Diphtheria, Pertussis, Tetanus Vaccination: Yes Hx Pneumococcal Vaccination: 03/12/12 Review of Systems - Review of Systems Constitutional: No symptoms reported EENT: No symptoms reported Cardiovascular: See HPI, Chest pain Respiratory: No symptoms reported Gastrointestinal: No symptoms reported Genitourinary: No symptoms reported Male Genitourinary: No symptoms reported Musculoskeletal: No symptoms reported Skin: No symptoms reported Hematologic/Lymphatic: No symptoms reported Neurological/Psychological: No symptoms reported -: Yes All other systems reviewed and negative Physical Exam - Vital signs Vitals: Pulse Ox 93 02/10/20 10:30 - General General appearance: Appears well, Alert - HEENT Head: Normocephalic, Atraumatic Eyes: Normal Pupils: PERRL - Respiratory Respiratory status: No respiratory distress Breath sounds: Rhonchi, Wheezing - expiratory Chest palpation: Normal - Cardiovascular Rhythm: Regular Heart sounds: Normal auscultation Murmur: No - Abdominal Inspection: Normal Distension: No distension Bowel sounds: Normal Tenderness: Nontender - Extremities General upper extremity: Normal inspection. No: Edema General lower extremity: Normal inspection. No: Edema - Neurological Neuro grossly intact: Yes Cognition: Normal Orientation: AAOx4 - Psychological Associated symptoms: Normal affect, Normal mood - Skin Skin Temperature: Warm Skin Moisture: Dry Skin Color: Normal Course - Vital Signs Vital signs: Temp Pulse Resp BP Pulse Ox 98.0 F 15 105/88 H 97 02/10/20 10:50 02/10/20 13:01 02/10/20 13:00 02/10/20 13:01 - Laboratory Result Diagrams: 02/10/20 09:35 02/10/20 09:35 Laboratory results interpreted by me: 02/10/20 09:35 Sodium 136.4 L Discharge - Discharge Clinical Impression: Chest pain at rest, COPD exacerbation Condition: Stable Disposition: HOME, SELF-CARE Instructions: Aspirin (Cardiac) ([facility]), Chest Pain of Unclear Cause ([facility]) Additional Instructions: Chest Pain of Unclear Cause The exact cause of your chest pain isn't clear. Fortunately, there is no evidence of a dangerous medical condition. Further testing may be required to find the source of the pain. Most often, we find that this pain is coming from the chest wall -- the muscles or rib joints in the chest. But chest pain can come from the lung and lung lining, the esophagus, the heart valves or heart lining, and even the stomach or gallbladder. Rest. Eat lightly until the pain is gone. We may prescribe medicine for pain and inflammation. You should call the physician immediately if the pain radiates to the shoulder, jaw or arms; if you start to run a fever or develop a cough; or if you develop shortness of breath, or other new or alarming symptoms.Chronic Obstructive Lung Disease You have chronic obstructive lung disease (COPD). The symptoms come from emphysema (damage to small airways, with trapping of air in large sacks in the lung) and chronic bronchitis (repeated infection and damage to larger airways). The cause is almost always cigarette smoking, although dust exposure, asthma, and infections contribute. You should avoid fumes, dust, and smoke (especially tobacco smoke). Your condition will flare from time to time. There is no cure, but the symptoms can be treated. Bronchodilators (asthma medicine) are often helpful. Antibiotics help when infection is present. When shortness of breath is severe, we may prescribe cortisone medication. If medicine doesn't help enough, we can arrange for you to have an oxygen tank at home. Notify your doctor at once if sputum becomes thick, foul, or bloody, if you develop a fever or chest pain, or if your shortness of breath worsens. [facility] for an outpatient ca rdiac stress test work-up. Prescriptions: Prednisone [Deltasone 20 mg Tablet] 20 mg PO BID #10 tablet [facility]errals: [facility] [Primary [facility]] - Follow up as needed I personally performed the services described in the documentation, reviewed and edited the documentation which was dictated to the scribe in my presence, and it accurately records my words and actions.
[2020-02-10 16:33] VITALS: BP 110/82
[2020-02-10 16:58] LABS: APPEARANCE,URINE CLEAR; BILIRUBIN,URINE SMALL (NEGATIVE); COLOR,URINE YELLOW; GLUCOSE, URINE NEGATIVE (NEGATIVE); KETONES,URINE NEGATIVE (NEGATIVE); LEUKOCYTE ESTERASE,URINE NEGATIVE (NEGATIVE); NITRITE,URINE NEGATIVE (NEGATIVE); PROTEIN,URINE NEGATIVE (NEGATIVE); URINE SPECIFIC GRAVITY 1.026
== END 2020-02-10 16:33 | disposition home or self-care (01) ==
LOC: ER 10:26
DX: R07.89 Other chest pain (principal); J44.1 Chronic obstructive pulmonary disease with (acute) exacerbation; R05 Cough; R06.02 Shortness of breath; J34.89 Other specified disorders of nose and nasal sinuses; K21.9 Gastro-esophageal reflux disease without esophagitis; N40.0 Benign prostatic hyperplasia without lower urinary tract symptoms; F17.210 Nicotine dependence, cigarettes, uncomplicated; Z71.6 Tobacco abuse counseling; Z79.899 Other long term (current) drug therapy; Z79.51 Long term (current) use of inhaled steroids; Z79.82 Long term (current) use of aspirin; Z20.828 Contact with and (suspected) exposure to other viral communicable diseases; Z86.11 Personal history of tuberculosis; Z87.01 Personal history of pneumonia (recurrent); Z91.013 Allergy to seafood; Z82.49 Family history of ischemic heart disease and other diseases of the circulatory system
CPT/HCPCS: 93005; 94640; 99285; 36415; 85025; 87635; 80053; 81001; 84484; 71045; 93010; C9803

== ENCOUNTER 2020-05-27 19:54 | Emergency (ER) | payer OTHER ==
--- NOTE | 2020-05-27 20:50 | ER Document Report ---
ED General - General Chief Complaint: Shortness Of Breath Stated Complaint: SHORTNESS OF BREATH Time Seen by Provider: 05/27/20 20:50 Primary Care Provider: [facility] [Primary Care Provider] - Follow up as needed TRAVEL OUTSIDE OF THE [place] IN LAST 30 DAYS: No - HPI Notes: 64-year-old male presents with shortness of breath. Patient states he has had shortness of breath for the past 4 to 5 days, he has been trying to manage his symptoms at home. He has a history of COPD. He states that he has been using albuterol nebulizer mainly. He states that he is out of his rescue inhaler and Symbicort. However his brother had both of these medications, so he was able to use some today. He reports a cough that is occasionally productive of a clear/cloudy sputum. He denies fever. He states that he did have some nausea after a coughing attack today. He received 2 mg magnesium, 1 neb and 125 mg Solu-Medrol with EMS. He states he is feeling a lot better currently. He wears 2 L of oxygen at night, no oxygen during the daytime. He denies any known COVID exposures. He also reports frequent urination, he states he has a history of a large prostate. - Related Data Allergies/Adverse Reactions: iodine [Iodine] Allergy (Verified 08/26/19 15:06) Shellfish * [Shellfish] Allergy (Verified 08/26/19 15:06) shellfish derived Allergy (Verified 08/26/19 15:06) Home Medications: Albuterol Past Medical History - General Information source: Patient - Social History Smoking Status: Current Every Day Smoker Frequency of alcohol use: None Drug Abuse: None Family History: Reviewed & Not Pertinent, CAD, COPD Patient has homicidal ideation: No - Past Medical History Cardiac Medical History: Reports: Hx Congestive Heart Failure Denies: Hx Atrial Fibrillation, Hx Coronary Artery Disease, Hx DVT, Hx Heart Attack, Hx Hypercholesterolemia, Hx Hypertension, Hx Pulmonary Embolism Pulmonary Medical History: Reports: Hx Bronchitis, Hx COPD, Hx Pneumonia, Hx Respiratory Failure - Chronic respiratory failure on O2 per nasal cannula at 2 L /min continuously, Hx Tuberculosis - Treatment in 1991 Denies: Hx Sleep Apnea Neurological Medical History: Denies: Hx Cerebrovascular Accident, Hx Seizures Endocrine Medical History: Denies: Hx Diabetes Mellitus Type 1, Hx Diabetes Mellitus Type 2, Hx Hyperthyroidism, Hx Hypothyroidism Renal/ Medical History: Reports: Hx Benign Prostatic Hyperplasia. Denies: Hx Peritoneal Dialysis Malignancy Medical History: Denies Hx Lung Cancer GI Medical History: Reports: Hx Gastroesophageal Reflux Disease. Denies: Hx Cirrhosis, Hx Crohn's Disease, Hx Hepatitis, Hx Ulcerative Colitis Musculoskeletal Medical History: Reports Hx Arthritis, Denies Hx Gout Skin Medical History: Denies Hx Eczema, Denies Hx Psoriasis Psychiatric Medical History: Reports: Hx Depression Infectious Medical History: Denies: Hx Hepatitis Past Surgical History: Denies: Hx Appendectomy, Hx Bowel Surgery, Hx Cholecystectomy, Hx Coronary Artery Bypass Graft, Hx Gastric Bypass Surgery, Hx Herniorrhaphy, Hx Pacemaker, Hx Tonsillectomy - Immunizations Hx Diphtheria, Pertussis, Tetanus Vaccination: Yes Hx Pneumococcal Vaccination: 03/12/12 Review of Systems - Review of Systems Constitutional: denies: Fever EENT: No symptoms reported Cardiovascular: denies: Chest pain Respiratory: Cough, Short of breath Gastrointestinal: denies: Abdominal pain Genitourinary: Frequency Male Genitourinary: No symptoms reported Musculoskeletal: No symptoms reported Skin: No symptoms reported Neurological/Psychological: No symptoms reported Physical Exam - Vital signs Vitals: Resp Pulse Ox 19 100 05/27/20 20:02 05/27/20 20:02 - General General appearance: Appears well, Alert In distress: None - HEENT Head: Normocephalic, Atraumatic Extraocular movements intact: Yes Pupils: PERRL - Respiratory Respiratory status: No respiratory distress, Other Breath sounds: Other - Expiratory wheezing, prolonged expiratory phase - Cardiovascular Rhythm: Regular Heart sounds: Normal auscultation - Abdominal Tenderness: Nontender - Extremities General upper extremity: Normal ROM General lower extremity: Normal ROM - Neurological Neuro grossly intact: Yes Orientation: AAOx4 - Psychological Associated symptoms: Normal affect - Skin Skin Temperature: Warm Course - Re-evaluation Re-evalutation: 64 male history of COPD, chronic everyday smoker, here with shortness of breath x4 to 5 days. He is well-appearing on exam, no current signs of respiratory distress, he has expiratory wheezing with a prolonged expiratory phase. Vital signs are stable. He is 96% on room air, nursing put him on nasal cannula due to wheezing. I suspect his symptoms are likely attributable to COPD exacerbation and from being out of his usual long-term medications, including no rescue inhaler. Pneumonia is a possibility, chest x-ray ordered to evaluate consolidation. No known covert exposures and he is afebrile, I discussed with him COVID swabbing at time of discharge. Check basic labs including urinalysis. Will do 2 additional nebs for further symptomatic control. 05/27/20 22:45 No leukocytosis or left shift. No acute anemia. Electrolytes okay. Urine does not suggest UTI. Chest x-ray without consolidation. 05/27/20 22:59 Patient reports marked improvement in his symptoms. His lung sounds have improved. We discussed his current medication regimen. He states that he has had issues paying for Symbicort, however he is going to use his brother's inhaler. I offered to prescribe him Advair, he declined at this time, states he will follow-up with his primary doctor. He states that he does have enough albuterol at home. Will send home with course of prednisone and doxycycline. COVID swab ordered. Return precautions given, patient stable at time of disch arge. - Vital Signs Vital signs: Temp Pulse Resp BP Pulse Ox 98.4 F 19 125/96 H 95 05/27/20 20:15 05/27/20 22:00 05/27/20 22:00 05/27/20 22:00 - Laboratory Result Diagrams: 05/27/20 20:30 05/27/20 20:30 Laboratory results interpreted by me: 05/27/20 05/27/20 05/27/20 20:30 20:30 21:52 RBC 4.34 L Eos % (Auto) 7.1 H Sodium 135.5 L Urine Urobilinogen 2.0 H - Diagnostic Test Radiology reviewed: Image reviewed, Reports reviewed - EKG Interpretation by Me Additional EKG results interpreted by me: EKG is interpreted by me. Normal sinus rhythm, rate 88. Low voltage. Narrow QRS, QTC within normal limits. No ST segment elevation. Discharge - Discharge Clinical Impression: COPD exacerbation Condition: Stable Disposition: HOME, SELF-CARE Additional Instructions: Please begin a course of prednisone and doxycycline. Please follow-up with your doctor about potentially switching from Symbicort to Advair. You have additionally received a COVID swab today, you will be called in 2 to 3 days approximately with results. Please self quarantine at home until you received a call. Return to the emergency department for any concerning worsening symptoms. Prescriptions: Prednisone [Deltasone 20 mg Tablet] 2 tab PO DAILY 5 Days #10 tablet Doxycycline Monohydrate 100 mg PO BID 7 Days #14 capsule [facility]: [facility] [[facility] - Follow up as needed
[2020-05-27] MEDS ORDERED: IPRATROPIUM/ALBUTEROL 0.5-2.5 MG/3 ML AMPUL NEB SCH (21:00)
[2020-05-27 21:34] LABS: ANION GAP 6 (5-19); BLOOD UREA NITROGEN 12 mg/dL (7-20); CARBON DIOXIDE 30 mmol/L (22-30); CHLORIDE 100 mmol/L (98-107); GLUCOSE 96 mg/dL (75-110); POTASSIUM 4.4 mmol/L (3.6-5.0)
[2020-05-27 21:36] LABS: ABSOLUTE EOSINOPHILS # (AUTO) 0.4 10^3/uL (0.0-0.6); ABSOLUTE LYMPHOCYTES (AUTO) 2.1 10^3/uL (0.5-4.7); ABSOLUTE MONOCYTES (AUTO) 0.4 10^3/uL (0.1-1.4); ABSOLUTE NEUT (AUTO) 3.2 10^3/uL (1.7-8.2); BASOPHILS % (AUTO) 0.4 % (0-2); EOSINOPHILS % (AUTO) 7.1 % (0-6); HEMATOCRIT 39.8 % (37.9-51.0); HEMOGLOBIN 13.5 g/dL (13.5-17.0); LYMPHOCYTES % (AUTO) 34.4 % (13-45); MEAN CORPUSCULAR HEMOGLOBIN 31.2 pg (27.0-33.4); MEAN CORPUSCULAR VOLUME 92 fl (80-97); MONOCYTES % (AUTO) 7.2 % (3-13); PLATELET COUNT 219 10^3/uL (150-450); RED BLOOD COUNT 4.34 10^6/uL (4.35-5.55); RED CELL DISTRIBUTION WIDTH 13.8 % (11.5-14.0); SEGMENTED NEUTROPHILS % (AUTO) 50.9 % (42-78); TOTAL CELLS COUNTED % (AUTO) 100 %; WHITE BLOOD COUNT 6.2 10^3/uL (4.0-10.5)
--- NOTE | 2020-05-27 21:54 | RADIOLOGY REPORT (SQ) ---
EXAM DESCRIPTION: XR CHEST 1 VIEW COMPLETED DATE/TME: 05/27/2020 20:53 CLINICAL HISTORY: 64 years Male sob COMPARISON: 02/11/2020. FINDINGS: The cardiomediastinal silhouette appears unremarkable. No consolidating infiltrates or pleural effusions. No pneumothorax. IMPRESSION: No acute abnormality is identified.
[2020-05-27 22:13] LABS: APPEARANCE,URINE CLEAR; BILIRUBIN,URINE NEGATIVE (NEGATIVE); COLOR,URINE YELLOW; GLUCOSE, URINE NEGATIVE (NEGATIVE); KETONES,URINE NEGATIVE (NEGATIVE); LEUKOCYTE ESTERASE,URINE NEGATIVE (NEGATIVE); NITRITE,URINE NEGATIVE (NEGATIVE); PROTEIN,URINE NEGATIVE (NEGATIVE); URINE SPECIFIC GRAVITY 1.026
[2020-05-27 23:29] VITALS: BP 127/89
--- NOTE | 2020-05-28 07:55 | EKG REPORT ---
SEVERITY:- BORDERLINE ECG - SINUS RHYTHM PROBABLE LEFT ATRIAL ABNORMALITY LOW VOLTAGE IN FRONTAL LEADS BORDERLINE R WAVE PROGRESSION, ANTERIOR LEADS : Confirmed by: Sabas Flores MD 28-May-2020 07:54:11
== END 2020-05-27 23:51 | disposition home or self-care (01) ==
LOC: ER 19:54
DX: J44.1 Chronic obstructive pulmonary disease with (acute) exacerbation (principal); R06.02 Shortness of breath; R05 Cough; R11.0 Nausea; R35.0 Frequency of micturition; F17.200 Nicotine dependence, unspecified, uncomplicated; Z99.81 Dependence on supplemental oxygen; Z86.11 Personal history of tuberculosis; Z87.01 Personal history of pneumonia (recurrent); Z79.899 Other long term (current) drug therapy; Z91.013 Allergy to seafood; Z20.828 Contact with and (suspected) exposure to other viral communicable diseases
CPT/HCPCS: 93005; 94640; 99285; 36415; 85025; 87635; 80048; 81001; 71045; 93010; C9803